=== PATIENT | female | born 1930 | race Caucasian/White ===

== ENCOUNTER 2017-03-24 13:21 | Inpatient (IN) | payer OTHER ==
[~2017-03-24] VITALS: Ht 165.1 cm; Wt 52.2 kg
[~2017-03-24 13:21] MED LIST: ACTONEL35 MG PO; ATIVAN0.5 MG PO; CAL-CITRATE200 MG PO; CALCITRIOL0.25 MCG PO; CIPROFLOXACIN500 MG PO; COZAAR25 MG PO; DIGOXIN0.125 MG PO; DILTIAZEM HCL180 MG PO; DULCOLAX5 MG PO; FUROSEMIDE40 MG PO; KEFLEX500 MG PO; LOSARTAN POTASS25 MG PO; LOSARTAN POTASS50 MG PO; MAGNESIUM OXID400 MG PO; METFORMIN HCL500 MG PO; METFORMIN HYDR500 M1 PO; METOPROLOL SUCC50 MG PO; MILK OF MA400 MG/5 M PO; MILK OF MAGNESI30 ML PO; MIRALAX17 GM PO; MULTIVITAMIN1 TAB PO; NOVOLOG100 U/ML SC; PREDNISONE 1 MG1 MG PO; PROBIOTIC FORMU1 CA1 PO; RIVA15T PO; ROBITUSSIN W/CO10 ML PO; ROXICODONE5 MG PO; SENOKOT S 50 MG1 TAB PO; SIMVASTATIN20 MG PO; Senokot S PO; TOPROL XL 50MG50 MG PO; TRADJENTA5 MG PO; TYLENOL TAB 32325 MG PO; VITAMIN B650 MG PO; VITAMIN E400 I1 PO; XARELTO15 MG PO; XARELTO20 MG PO
--- NOTE | 2017-03-24 13:32 | ED DYSPNEA/ASTHMA COMPLAINT ---
History of Present Illness General Chief Complaint: Upper Respiratory Sx/Fever Stated Complaint: BIBA ?URI Source: patient, family, EMS Exam Limitations: dementia Allergies Coded Allergies: warfarin (From COUMADIN) (Severe, "THROAT CLOSED" PER FAMILY 03/24/17) Penicillins (UNKNOWN 03/24/17) amoxicillin (UNKNOWN 03/24/17) risperidone (From RISPERDAL) (UNKNOWN 03/24/17) codeine (Intermediate, DIARRHEA 03/24/17) dabigatran etexilate (From PRADAXA) (Intermediate, BLEEDING 03/24/17) enoxaparin (From LOVENOX) (Intermediate, STOMACH PAIN 03/24/17) haloperidol (From HALDOL) (Intermediate, DIARRHEA, RAPID HR 03/24/17) rivaroxaban (From XARELTO) (Intermediate, BLEEDING 03/24/17) aspirin (BLEEDING PER FAMILY 03/24/17) Reconcile Medications Acetaminophen (Tylenol Tab 325 MG) 325 MG TABLET 2 TAB PO PRN PAIN/HEADACHES (Reported) Bisacodyl (Dulcolax) 5 MG TABLET.DR 1-2 TAB PO PRN CONSTIPATION (Reported) Calcitriol 0.25 MCG CAPSULE 1 CAP PO QAM SUPPLEMENT (Reported) Calcium Citrate (Kendrick-Citrate) 200 MG CAP 3 TAB PO BID SUPPLEMENT (Reported) Cephalexin (Keflex) 500 MG CAP 1 TAB PO Q8 CELLULITIS DILTIAZEM HCL (Diltiazem 24HR ER) 180 MG CAP.ER.24H 1 CAP PO QAM ATRIAL FIBRILLATION (Reported) Furosemide 40 MG TABLET 1 TAB PO QAM CHF (Reported) Inulin/Lactobacillus Sporoge (Probiotic Formula) 1 CAP CAP 1 TAB PO BID SUPPLEMENT Linagliptin (Tradjenta) 5 MG TABLET 1 TAB PO QAM DIABETES (Reported) Reason to Stop at ADM: ON ISS Lorazepam (Ativan) 0.5 MG TAB 1 TAB PO DAILY PAIN AND ANXIETY (Reported) THIS IS TO BE GIVEN PRIOR TO PT Losartan Potassium (Cozaar) 25 MG TAB 1 TAB PO QAM HTN (Reported) Magnesium Hydroxide (Milk Of Magnesia) 400 MG/5 ML KOJO 3 TBSP PO PRN CONSTIPATION (Reported) Magnesium Oxide 400 MG TABLET 1 TAB PO DAILY SUPPLEMENT (Reported) Metformin Hydrochloride (Metformin HCl) 500 MG TAB 1 TAB PO BID DIABETES ( Reported) Metoprolol Succ XL (Toprol Xl 50MG Tab) 50 MG TAB.ER.24H 1 TAB PO QAM HYPERTENSION (Reported) Multivitamin (Multiple Vitamins) 1 EACH TABLET 1 TAB PO DAILY SUPPLEMENT ( Reported) Prednisone 1 MG TABLET 2-3 TAB PO AD RA (Reported) Pyridoxine (Vitamin B6) 50 MG TAB 1 TAB PO DAILY SUPPLEMENT (Reported) Risedronate Sodium (Actonel) 35 MG TABLET 1 TAB PO QSUN BONE HEALTH, OSTEOPOROSIS (Reported) Rivaroxaban (Xarelto) 15 MG TAB 15 MG PO DAILY BLOOD THINNER SENNOSIDES/DOCUSATE SODIUM (Senokot-S Tablet) 50 MG/8.6 MG TAB 1-2 TAB PO PRN CONSTIPATION (Reported) Simvastatin (Zocor) 20 MG TAB 1 TAB PO QPM CHOLESTEROL (Reported) Triage Nurses Notes Reviewed? yes Onset: Gradual Duration: day(s): (3-4), constant, continues in ED, getting worse Timing: single episode today Severity: moderate, severe Activities at Onset: none Prior Episodes/Possible Cause: occasional episodes Associated Symptoms: cough, wheezing LMP (ages 10-50): post menopausal : No Patient currently breastfeeds: No HPI: 86-year-old female past medical history of dementia, atrial fibrillation, diabetes pulmonary embolism presents for evaluation of fatigue, lethargy, cough, congestion and shortness of breath. Family reports the patient has had a cough productive of yellow sputum over the past several days. She is also been more lethargic than usual and sleeping a lot. They deny any fever or chills. Her appetite has been decreased. They report that she had multiple episodes of vomiting on the way here and they concerned she may have aspirated. She has had aspiration pneumonia in the past. Patient has significant dementia and is not able to contribute to the history. Family feels like she is very lethargic compared to usual. Patient has an IVC filter in place and is anticoagulated on XARELTO. (Homero Hurtado) Vital Signs & Intake/Output Vital Signs & Intake/Output Vital Signs Date Time Temp Pulse Resp B/P B/P Pulse O2 O2 Flow FiO2 Mean Ox Delivery Rate 03/24 1600 66 20 138/60 99 Nasal 2.0L Cannula 03/24 1430 97 Nasal 3.0L Cannula 03/24 1400 99 Nasal 2.0L Cannula 03/24 1344 94 Nasal 2.5L Cannula 03/24 1344 97.7 92 20 153/72 88 Room Air (Adina BLAKELY,Aroldo Day) Past History Medical History Any Pertinent Medical History? 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 FH: lung cancer MOTHER FH: emphysema Hx Contributory? No (Homero Hurtado) Review of Systems Review of Systems Constitutional: Reports: no symptoms. EENTM: Reports: nasal congestion. Respiratory: Reports: see HPI, cough, short of breath, sputum production. Cardiovascular: Reports: no symptoms. GI: Reports: vomiting. Genitourinary: Reports: no symptoms. Musculoskeletal: Reports: no symptoms. Skin: Reports: no symptoms. Neurological/Psychological: Reports: confusion, dementia. Hematologic/Endocrine: Reports: no symptoms. Immunologic/Allergic: Reports: no symptoms. All Other Systems: Reviewed and Negative (Homero Hurtado) Physical Exam Physical Exam General Appearance: alert, awake, lethargic, thin Head: atraumatic, normal appearance Eyes: Bilateral: normal appearance, PERRL, EOMI. Ears, Nose, Throat: normal pharynx, hearing grossly normal, nasal congestion, moist mucus membranes Neck: normal inspection, supple, full range of motion Respiratory: chest non-tender, no respiratory distress, THERE ARE CRACKLES IN THE RIGHT LOWER LOBE. rHONCHI BILATERALLY NO RESPIRATORY DISTRESS OR CYANOSIS Cardiovascular: regular rate/rhythm, normal peripheral pulses Peripheral Pulses: 2+ radial (R), 2+ radial (L) Gastrointestinal: normal bowel sounds, soft, non-tender, no organomegaly Extremities: no edema, PATIENT HAS A LEFT [id number] AMPUTATION. SHE IS MOVING REMAINING EXTREMITIES EQUALLY Neurologic/Psych: no motor/sensory deficits, awake, alert, disoriented x 3 Skin: intact, normal color, warm/dry Core Measures ACS in differential dx? No CVA/TIA Diagnosis No Sepsis Present: No Sepsis Focused Exam Completed? Yes (Homero Hurtado) ED Sepsis Exam Date of Focused Sepsis Exam: 03/24/17 Time of Focused Sepsis Exam: 1500 Sepsis Cardiac Exam: ATRIAL FIBRILLATION 61BPM Sepsis Resp Exam: Rales (RLL) Sepsis Cap Refill Exam: <2 Sec Sepsis Peripheral Pulse Exam: Normal Sepsis Peripheral Pulse Location: Radial Sepsis Skin Color Exam: Pale Skin Temp/Moisture Exam: Warm/Dry (Homero Hurtado) Progress Differential Diagnosis: asthma, AMI, bronchitis, CHF, COPD, pulmonary embolism, pneumonia, unstable angina Diagnostic Imaging: Viewed by Me: Radiology Read. Discussed w/RAD: Radiology Read. CXR Impression: PATIENT: JUANITO LÓPEZ PRESENT AGE: 86 PATIENT ACCOUNT NO: [id number] : [birth year] LOCATION: ER ORDERING PHYSICIAN: Homero BENTON SERVICE DATE: 03/24/17 EXAM TYPE: RAD - XRY-PORTABLE CHEST XRAY EXAMINATION: XR PORTABLE CHEST CLINICAL INFORMATION: Cough, sputum. Shortness of breath. COMPARISON: Chest x-ray 05/23/2014, 05/22/2014 TECHNIQUE: Portable frontal view of the chest was obtained. 2:50 PM FINDINGS: There is dense consolidation at the left lung base with silhouetting left diaphragm. Probable consolidation/atelectasis as well as left pleural effusion. No pulmonary vascular congestion. The right lung is clear. Old healed left humeral fracture. Advanced degenerative joint disease of the right and left glenohumeral joint. Evidence of chronic rotator cuff tendon tear of both shoulders. Degenerative spondylosis of dorsal spine. IMPRESSION: Dense consolidation left lung base of left basilar infiltrate or atelectasis and probable left effusion. DICTATED BY: Juan Gregory MD DATE/TIME DICTATED:03/24/171523 CERTIFIED MARINE MECHANIC :LITZY DATE/TIME TRANSCRIBED:03/24/171523 CONFIDENTIAL, DO NOT COPY WITHOUT APPROPRIATE AUTHORIZATION. Initial ED EKG: ATRIAL FIBRILLATION, pvc, LEFT BUNDLE BRANCH BLOCK (Homero Hurtado) Plan of Care: Orders Procedure Date/time Status Regular Diet 03/25 B Active Misc Message 03/24 1744 Active ED Holding Orders 01/17 1745 Active Admit to inpatient 03/24 1745 Active Vital Signs 03/24 1745 Active Code Status 03/[address] CHEST WO IV CONTRAST 03/24 1720 Active ARTERIAL BLOOD GAS (GEN) 03/24 1610 Active AEROSOL (GEN) 03/24 1409 Complete RAPID VIRAL INFLUENZA A 03/24 1351 Complete BLOOD CULTURE 03/24 1351 Active URINALYSIS 03/24 1351 Active TROPONIN LEVEL 03/24 1351 Complete PARTIAL THROMBOPLASTIN TIME 03/24 1351 Complete PROTHROMBIN TIME 03/24 1351 Complete LACTIC ACID 03/24 1351 Complete D-DIMER 03/24 1351 Complete COMPREHENSIVE METABOLIC PANEL 03/24 1351 Complete CBC WITHOUT DIFFERENTIAL 03/24 1351 Complete B-TYPE NATRIURETIC PEP (BNP) 03/24 1351 Complete EKG 03/24 1343 Active Current Medications Sig/Julio Start time Last Medication Dose Stop Time Status Admin Azithromycin 500 MG ONCE ONE 03/24 1730 AC (Zithromax) 03/24 1829 Sodium Chloride 250 ML (Normal Saline 0.9%) Clindamycin 300 MG ONCE ONE 03/24 1615 CAN (Cleocin) 03/24 1616 Laboratory Tests 03/24/17 1700: pH 7.47 H, pCO2 39, pO2 73 L, HCO3 28, ABG O2 Sat (Measured) 95.0 L, P-50 ( Temp Corrected) N, Carboxyhemoglobin 0 L, O2 Concentration % 3L, Temperature 97.7, O2 Delivery Method NC, Phlebotomy Draw Site RIGHT BRACHIAL 03/24/17 1651: Lactic Acid Cancelled 03/24/17 1507: Anion Gap 13, Estimated GFR 35 L, BUN/Creatinine Ratio 24.3, Glucose 149 H, Lactic Acid 1.7, Calcium 13.6 H, Total Bilirubin 0.4, AST 21, ALT 36, Alkaline Phosphatase 55, Troponin I 0.02, Ezg-O-Npjqtgxsryf Pept 3840 H, Total Protein 6.7, Albumin 3.9, Globulin 2.8, Albumin/Globulin Ratio 1.4, PT 16.3 H, INR 1.56 H, APTT 29, D-Dimer High Sensitivty 576 H 03/24/17 1426: CBC w Diff NO MAN DIFF REQ, RBC 4.57, MCV 95.8, MCH 32.1 H, RDW 14.3, MPV 7.8, Gran % 80.6 H, Lymphocytes % 9.7 L, Monocytes % 7.8, Eosinophils % 1.4, Basophils % 0.5, Absolute Granulocytes 10.4 H, Absolute Lymphocytes 1.3, Absolute Monocytes 1.0 H, Absolute Eosinophils 0.2, Absolute Basophils 0.1, PUBS MCHC 33.5 Microbiology 03/24 1426 BLOOD: Blood Culture - RECD 03/24 1400 NASOPHARYN: Influenza Virus A & B Rapid Smear - COMP 03/24 1351 BLOOD: Blood Culture - ORD Patient seen and evaluated. On arrival to the emergency department she was hypoxic on room air to the high 80/90%. She was placed on 2 L nasal cannula and her oxygen saturation has maintained in the 90s. She has crackles in the right lower lobe along with rhonchi bilaterally. Patient vomited multiple times on the way here there is a concern for aspiration pneumonia she has had this in the past. Patient's blood gas does not show any evidence of hypercarbiA. SHe is not acidotic. Patient does have a dense consolidation on the right lung suspicious for pneumonia. She'll be covered with Clinda as well as ceftriaxone and Zithromax. Blood cultures sent. Patient does have a history of PE with a mildly elevated d-dimer. She has a IVC filter in place and is on anticoagulation. Suspect of the hypoxia is related to pneumonia and not a PE. Patient is negative for the flu. Lactic acid is negative. BNP is slightly elevated but there is no evidence of pulmonary edema patient will be admitted to Gen. medicine for IV antibiotics and IV fluids follow-up cultures. Case discussed with Dr. Holden he agrees. (José BENTON,Homero) (Adina BLAKELY,Aroldo Day) Departure Departure Disposition: STILL A PATIENT Condition: Stable Clinical Impression Primary Impression: Pneumonia Qualifiers: Pneumonia type: due to unspecified organism Laterality: right Lung location: lower lobe of lung Qualified Code: J18.1 - Lobar pneumonia, unspecified organism Secondary Impressions: Hypoxia Referrals: Hetal Goldberg MD (PCP/Family) Departure Forms: Customer Survey General Discharge Information Admission Note Spoke With: Mary Madrigal MD Documentation of Exam: Documentation of any treatments & extenuating circumstances including Concerns Regarding Discharge (functional status, medication knowledge or non-compliance, living conditions, etc.) that warrant an admission rather than observation: [IV antibiotics, oxygen supplementation, IV fluids, serial labs, serial chest x-rays , physical therapy, pulmonology consult, monitoring of vital signs] (Homero Hurtado) PA/BLUNGER Co-Sign Statement Statement: ED Attending supervision documentation- [X] I saw and evaluated the patient. I have also reviewed all the pertinent lab results and diagnostic results. I agree with the findings and the plan of care as documented in the PA's/BLUNGER's documentation. Patient presents for evaluation of a fever and generalized weakness/lethargy. Physical examination reveals somewhat lethargic woman in no acute respiratory distress. [] I have reviewed the ED Record and agree with the PA's/BLUNGER's documentation. [] Additions or exceptions (if any) to the PAs/BLUNGER's note and plan are summarized below: [] (Adina BLAKELY,Aroldo Day) Critical Care Note Critical Care Note Critical Care Time: non-applicable (Homero Hurtado)
[2017-03-24 14:38] LABS: ABSOLUTE BASOPHIL COUNT 0.1 /CUMM (0.0-0.2); ABSOLUTE EOSINOPHIL COUNT 0.2 /CUMM (0.0-0.7); ABSOLUTE GRANULOCYTE CT 10.4 /CUMM (1.4-6.5); ABSOLUTE LYMPH COUNT 1.3 /CUMM (1.2-3.4); BASOPHIL % 0.5 % (0.0-2.0); EOSINOPHIL % 1.4 % (0-5); GRANULOCYTE % 80.6 % (42.2-75.2); HEMATOCRIT 43.8 % (37-47); MEAN CORPUSCULAR HGB 32.1 PG (27.0-31.0); MEAN CORPUSCULAR HGB CONC 33.5 G/DL (33.0-37.0); MEAN CORPUSCULAR VOLUME 95.8 FL (81.0-99.0); MEAN PLATELET VOLUME 7.8 FL (7.4-10.4); PLATELET COUNT 288 /CUMM (130-400); RBC DISTRIBUTION WIDTH 14.3 % (11.5-14.5); RED BLOOD CELL CT 4.57 /CUMM (4.20-5.40); WHITE BLOOD CELL COUNT 12.9 /CUMM (4.8-10.8)
[2017-03-24 15:23] LABS: PT 16.3 SEC (9.4-12.5); PTT 29 SEC (25-37)
--- NOTE | 2017-03-24 15:30 | RADIOLOGY REPORT ---
EXAMINATION: XR PORTABLE CHEST CLINICAL INFORMATION: Cough, sputum. Shortness of breath. COMPARISON: Chest x-ray 05/23/2014, 05/22/2014 TECHNIQUE: Portable frontal view of the chest was obtained. 2:50 PM FINDINGS: There is dense consolidation at the left lung base with silhouetting left diaphragm. Probable consolidation/atelectasis as well as left pleural effusion. No pulmonary vascular congestion. The right lung is clear. Old healed left humeral fracture. Advanced degenerative joint disease of the right and left glenohumeral joint. Evidence of chronic rotator cuff tendon tear of both shoulders. Degenerative spondylosis of dorsal spine. IMPRESSION: Dense consolidation left lung base of left basilar infiltrate or atelectasis and probable left effusion.
--- NOTE | 2017-03-24 17:37 | Admission Certification ---
Admission Certification Certification Statement - As attending physician, I certify that at the time of - admission, based on clinical presentation, severity of - symptoms, need for further diagnostic testing and - therapeutic interventions, and risk of adverse outcomes - without in-hospital treatment, in my clinical assessment, - this patient requires an acute hospital stay for a minimum - of two nights or longer. I have also considered psychsocial - factors such as support system, advanced age, financial - issues, cognitive issues, and failed out-patient treatments, - past re-admission history, safety of patient, and lack of - compliance as applicable. Specific rationale supporting this admission is: Pneumonia and tristian in elderly pt with dementia
--- NOTE | 2017-03-24 17:46 | PN- Att Addend ---
Attending Addendum Attending Brief Note This is a fairly complex 86-year-old female with multiple medical problems. She has dementia, atrial fibrillation on Xarelto, chronic diastolic heart failure, peripheral arterial disease, rheumatoid arthritis on chronic prednisone low dose and diabetes among her problems. Her family takes care of her at home and they brought her in basically for a cough with sputum and increasing agitation, much more than her usual self. They say she's become combative, banging into things and has been difficult to care for her. In the ED she was found to be afebrile and normotensive. She was fairly agitated and combative and even my exam was extremely limited. She was found to have a white count of 12.9 with a left shift, ROBINSON with a BUN of 34 and a creatinine 1.4 and a chest x-ray which showed dense left basilar consolidation. In addition her sats are 88-92% but as per the family who check her sats as an outpatient, that's close to her baseline. A blood gas was done which revealed a pH of 7.47, PCO2 of 39 and a PO2 of 73 on 3 L. She also has a Calcium of 13.6 but looking back in January 21 her Ca was 12.2. At this point I think we are dealing with a community-acquired pneumonia and after blood cultures are obtained I think we should cover her with ceftriaxone and azithromycin. Flu swab was neagtive. The ED give her clindamycin with the worry of aspiration. Given the dense consolidation on the chest x-ray we'll get a noncontrast chest CT to better delineate. Will hydrate her and obviously hold her Lasix and metformin for now. But will have to gently hydrate her because of the history of chronic diastolic heart failure. She is chronically on Xarelto and has a fairly high bleeding/fall risk so we'll continue that while watching her crit and bleeding indicators closely. Will follow-up on the Ca. I worry that with the agitation and combative behavior we may need a sitter for her to stay safe.
--- NOTE | 2017-03-24 18:20 | History & Physical ---
Florentin BLAKELY,[facility] 03/24/17 1820: General Information and HPI MD Statement: I have seen and personally examined JUANITO LÓPEZ and documented this H&P. The patient is a 86 year old F who presented with a patient stated chief complaint of productive cough, weakness, increased confusion Source of Information: family, old records Exam Limitations: unable to give history, clinical condition, confusion, dementia History of Present Illness: A few years old female with a PMH of dementia, A. fib on Xeralto, peripheral artery disease, chronic diastolic heart failure, rheumatoid arthritis, diabetes mellitus who presents to [facility] with her family very confused and not able to provide history, most of the history was provided by her daughter which is her caregiver. Patient started having productive cough which has been increasingly worse over the past few days, it was associated with increasing weakness and confusion. The patient was noticed to be very combative this morning and was not able to swallow her morning medications. She also complained of left shoulder pain, chest pain and back pain. Of note the patient was exposed to sick contacts (her visiting aid which had productive cough) at baseline the patient has dementia however she was noticed to have increasing confusion Her daughter denies any history of choking while eating neither injury to her left shoulder. No recent travel. Reports that the patient has been compliant with her home meds with no recent changes. Patient follow Dr. Palma who was consulted to see her during this admission Allergies/Medications Allergies: Coded Allergies: warfarin (From COUMADIN) (Severe, "THROAT CLOSED" PER FAMILY 03/24/17) Penicillins (UNKNOWN 03/24/17) amoxicillin (UNKNOWN 03/24/17) risperidone (From RISPERDAL) (UNKNOWN 03/24/17) codeine (Intermediate, DIARRHEA 03/24/17) dabigatran etexilate (From PRADAXA) (Intermediate, BLEEDING 03/24/17) enoxaparin (From LOVENOX) (Intermediate, STOMACH PAIN 03/24/17) haloperidol (From HALDOL) (Intermediate, DIARRHEA, RAPID HR 03/24/17) rivaroxaban (From XARELTO) (Intermediate, BLEEDING 03/24/17) aspirin (BLEEDING PER FAMILY 03/24/17) Home Med list Calcitriol 0.25 MCG CAPSULE 1 CAP PO DAILY SUPPLEMENT (Reported) Diltiazem HCl (Diltiazem 24HR ER) 180 MG CAP.ER.24H 1 CAP PO DAILY HEART/BP ( Reported) Furosemide (Unknown Strength) TABLET (Unknown Dose) PO DAILY DIURETIC ( Reported) Linagliptin (Tradjenta) 5 MG TABLET 1 TAB PO DAILY DM (Reported) Lorazepam 0.5 MG TABLET 1 TAB PO AD PRN ANXIETY (Reported) Losartan Potassium 25 MG TABLET 1 TAB PO DAILY HEART/BP (Reported) Magnesium Hydroxide (Milk Of Magnesia) 400 MG/5 ML ORAL.SUSP 15 ML PO PRN GI (Reported) Magnesium Oxide (Magnesium) 400 MG CAPSULE 1 CAP PO EOD SUPPLEMENT (Reported) Metformin HCl 500 MG TABLET 1 TAB PO BID DM (Reported) Metoprolol Succinate 50 MG TAB.ER.24H 1 TAB PO QAM HEART/BP (Reported) Multivitamin (Daily Value) 1 EACH TABLET 1 TAB PO DAILY SUPPLEMENT (Reported) Prednisone 1 MG TABLET 2 TAB PO Wednesday STEROID (Reported) Prednisone 1 MG TABLET 3 TAB PO STEROID (Reported) Pyridoxine HCl (Vitamin B-6) 50 MG TABLET 1 TAB PO DAILY SUPPLEMENT (Reported ) Risedronate Sodium (Actonel) 35 MG TABLET 1 TAB PO QSUN OSTEOPOROSIS ( Reported) Rivaroxaban (Xarelto) 15 MG TABLET 1 TAB PO DAILY BLOOD THINNER (Reported) Sennosides/Docusate Sodium (Senna S Tablet) 8.6 MG-50 MG TABLET 1 TAB PO EOD GI (Reported) Simvastatin (Simvastatin*) 20 MG TABLET 1 TAB PO QPM CHOLESTEROL (Reported) Past History Travel History Traveled to [place] past 21 day No Medical History Neurological: dementia EENT: EMMONAK Cardiovascular: AFIB, CHF, hypertension, hyperlipidemia, PVD, DVT PE Respiratory: pulmonary embolism, pneumonia Gastrointestinal: NONE Hepatic: NONE Renal: NONE Musculoskeletal: rheumatoid arthritis, RT AKA Psychiatric: NONE Endocrine: diabetes, hypothyroidism Blood Disorders: DVT, IVC FILTER Cancer(s): NONE TRUCK LOADER/Reproductive: NONE Other Medical Hx: 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 FH: lung cancer MOTHER FH: emphysema Psychosocial History Services at Home: Nursing Functional Ability ADLs Needs Assist: dressing, eating, toileting, bathing. Ambulation: non-ambulatory IADLs Needs Assist: shopping, housework, finances, food prep, telephone, transportation, medication admin. Review of Systems Review of Systems Constitutional: Reports: fever, malaise, weakness. Cardiovascular: Reports: chest pain. Respiratory: Reports: cough, sputum production. Denies: hemoptysis, orthopnea, stridor. GI: Denies: no symptoms. Genitourinary: Denies: no symptoms. Musculoskeletal: Denies: no symptoms. Skin: Denies: no symptoms. Exam & Diagnostic Data Last 24 Hrs of Vital Signs/I&O Vital Signs Date Time Temp Pulse Resp B/P B/P Pulse O2 O2 Flow FiO2 Mean Ox Delivery Rate 03/24 1948 98.9 97 20 107/61 97 Nasal 2.0L Cannula 03/24 1600 66 20 138/60 99 Nasal 2.0L Cannula 03/24 1430 97 Nasal 3.0L Cannula 03/24 1400 99 Nasal 2.0L Cannula 03/24 1344 94 Nasal 2.5L Cannula 03/24 1344 97.7 92 20 153/72 88 Room Air Intake & Output 03/24 1600 03/24 0800 03/24 0000 Intake Total Output Total Balance Patient 115 lb Weight Weight Reported by Patient Measurement Method Physical Exam General Appearance very confused and lethargic HEENT Atraumatic, PERRLA, EOMI, Mucous Membr. moist/pink Cardiovascular Normal S1, Normal S2, No Murmurs Lungs wide spread rales, decreased air entery jessica on the left side, Abdomen Normal Bowel Sounds, Soft Extremities No Clubbing, No Cyanosis, rheumatod arthritis with hand joint defomity Assessment/Plan Assessment: A few years old female with a PMH of dementia, A. fib on Xeralto, peripheral artery disease, chronic diastolic heart failure, rheumatoid arthritis, diabetes mellitus who presents to [facility] with her family very confused and not able to provide history, most of the history was provided by her daughter which is her caregiver. Patient started having productive cough which has been increasingly worse over the past few days, it was associated with increasing weakness and confusion. Most likely her confusion is due to infection, Labs on admission were significant for leukocytosis with WBC 12.9 with left shift, normal H&H, normal platelet count of 288, ABG showed pH is 7.47, PCO2 39, PO2 73, BEP: Sodium 142, potassium 4.4, BUN 34, creatinine 1.4, glucose 149, PT 1.56 Urinalysis only showed few bacteria Chest x-ray: Dense consolidation left lung base of left basilar infiltrate or atelectasis and probable left effusion. Chest CT: Loss left hemithorax with atelectasis and consolidation at left lower lobe. Moderate to large volume left pleural effusion which appears partially loculated. Problem list: CAP with left pleural effusion A. fib on as Xeralto Chronic diastolic heart failure ROBINSON: Most likely prerenal Diabetes mellitus Dementia Plan: Admit to telemetry floor cardiology consult was placed we'll follow up on the recommendation Obtain pulmonary consult IV ceftriaxone and azithromycin TRC and NEBS Echocardiography Close monitoring of vital signs Close monitoring of I's and O's Follow-up on CBC and BEP Most likely the patient will needed IR guided thoracocentesis Hold her Lasix and metformin for now Avoid delirium triggers likely dehydration and narcotics, continuous reorientation, Safety monitor Formal swallow eval to rule out aspiration possibility Patient is full code DVT prophylaxis Xeralto NPO As Ranked By This Provider Problem List: 1. Rheumatoid arthritis 2. CAD (coronary artery disease) 3. CAP (community acquired pneumonia) 4. Pleural effusion Core Measures/Misc (11/22) Acute Coronary Syndrome ACS Diagnosis: No Congestive Heart Failure Congestive Heart Failure Diagnosis No Cerebrovascular Accident CVA/TIA Diagnosis: No VTE (View Protocol) VTE Risk Factors Age>40 No Mechanical VTE Prophylaxis d/t N/A MechProphylax Ordered No VTE Pharm Prophylaxis d/t NA PharmProphylax ordered Sepsis (View protocol) Sepsis Present: No Byron Guardado 03/24/172054: Resident Review Statement Resident Statement: examined this patient, discussed with technical internship, agreed with technical internship, reviewed EMR data (avail), discussed with nursing, discussed with case mgmt, reviewed images, amended to note Other Findings: This is 86-year-old female with a history of advanced Alzheimer dementia, A. fib on Xeralto, peripheral artery disease, chronic diastolic heart failure, rheumatoid arthritis, diabetes mellitus who presents to [facility] with her family very confused and not able to provide history, most of the history was provided by her daughter which is her caregiver. Patient started having productive cough which has been increasingly worse over the past few days, it was associated with increasing weakness and confusion. The patient was noticed to be very combative this morning and was not able to swallow her morning medications. Hx was taken from the patient's family. .p.t non cooperative during physical exam limited exam: irregular irregular, normal S1,S2 decrease air entry in left lung with crakles. Right above knee amputation. Patient received her anticoagulation today. Physical examination, lab and imaging as above. Assessment: -Left pleural effusion: Most likely due to her history of congestive heart failure and pulmonary hypertension. Also the patient family stated her by mouth Lasix was decreased for 2 weeks and she developed some leg swelling and after that her Lasix increased to her regular dose of 40 by mouth daily and the neck swelling improved. Patient will need drainage and evaluation by lighting engineering technician and freight broker agent at she had previous drainage in the past. -Acute kidney injury/CHF: That this most likely due to decreased renal clearance and the fluid overload status with decompensated CHF. Patient did not seems to be dehydrated and would recommend IV diuresis giving her pro B peptide level. Also, the need of recheck her basic panel electrolytes for further evaluation also she would need an echocardiogram for assessment as the most recent one was done 2011. Plan: -Admit patient to telemetry floor -Vitals every shift, strict CULLEN's, aspiration precaution -We'll start the patient IV ceftriaxone and azithromycin -Follow-up blood culture, sputum culture, Legionella and strep urine antigen -We'll arrange for IR drainage tomorrow hold Xarelto in a.m. -C nebs as needed -Cardiology consultation -Obtain echocardiogram, 1 set of troponin and EKG -Pulmonary consultation -Nothing by mouth, pending swallow evaluation -Accu-Chek, nothing by mouth insulin sliding scale -We will give the patient 500 mL saline at 50 mL per hour as recommended by attending -We'll hold off her by mouth Lasix as recommended by attending -We'll hold the patient Xarelto, GASTON inhibitor -Recheck the patient CBC and basic electrolyte in a.m. -Pain pathway -DVT prophylaxis on Xarelto -Full code Mary Madrigal MD 03/25/17 0754: Attending Review Statement Attending Statement Attending Statement: examined this patient, discuss w/resident/PA/TROLLEY CLEANER, agreed w/resident/PA/TROLLEY CLEANER, discussed with family, reviewed EMR data (avail), discussed with nursing, reviewed images Attending Assessment/Plan: See medical brief addendum note dated 03/24/17
--- NOTE | 2017-03-24 18:20 | CT SCAN REPORT ---
EXAMINATION: CT CHEST WITHOUT CONTRAST CLINICAL INFORMATION: Cough. Hypoxia. COMPARISON: Chest x-ray 03/24/2017, 05/23/2014. CT chest 05/22/2014 TECHNIQUE: Multidetector volumetric CT imaging of the chest was done. Axial MIP volume rendering provided. Sagittal and coronal reformatted images were obtained. DLP: 235.5 mGy-cm FINDINGS: LUNGS: Overall volume loss of left hemithorax compared to right. There is atelectasis/consolidation at the left lower lobe. The bronchi in the consolidated segment of the left lower lobe are opacified. Minimal scarring at right lung base. No infiltrate or right lung. MEDIASTINUM: No mediastinal mass or significant lymphadenopathy. There is vascular calcification of aorta and coronary arteries. Cardiomegaly. No pericardial effusion. PLEURA: Moderate to large volume left pleural effusion could be partially loculated. AXILLA: No lymphadenopathy. UPPER ABDOMEN: No focal lesions are visualized portions of liver, spleen, pancreas kidneys or adrenal gland. There is atherosclerotic vascular wall calcification of the aorta and splenic arteries. OSSEOUS STRUCTURES: Degenerative spondylosis of spine with multilevel disc height narrowing and endplate spur of the vertebrae. IMPRESSION: Loss left hemithorax with atelectasis and consolidation at left lower lobe. Moderate to large volume left pleural effusion which appears partially loculated.
[2017-03-24] MEDS ORDERED: METFORMIN HCL500 M3 PO (18:45)
[2017-03-24] MEDS ORDERED: TRADJENTA5 M1 PO (18:45)
[2017-03-24] MEDS ORDERED: DILTIAZEM 24HR180 MG PO (18:49)
[2017-03-24] MEDS ORDERED: XARELTO15 M2 PO (18:49)
[2017-03-24] MEDS ORDERED: FUROSEMIDE40 M1 PO (18:50)
[2017-03-24] MEDS ORDERED: LOSARTAN POTASS25 M1 PO (18:50)
[2017-03-24] MEDS ORDERED: SIMVASTATIN20 M2 PO (18:51)
[2017-03-24] MEDS ORDERED: PREDNISONE1 MG PO ×2 (18:51→18:52)
[2017-03-24] MEDS ORDERED: CALCITRIOL0.25 MC1 PO (18:51)
[2017-03-24] MEDS ORDERED: METOPROLOL SUCC50 M2 PO (18:53)
[2017-03-24] MEDS ORDERED: ACTONEL35 M1 PO (18:53)
[2017-03-24] MEDS ORDERED: LORAZEPAM0.5 M1 PO (18:54)
[2017-03-24] MEDS ORDERED: DAILY VALUE1 EACH PO (19:08)
[2017-03-24] MEDS ORDERED: MAGNESIUM400 M1 PO (19:09)
[2017-03-24] MEDS ORDERED: VITAMIN B-650 M2 PO (19:09)
[2017-03-24] MEDS ORDERED: SENNA S TABLET1 EACH PO (19:13)
[2017-03-24] MEDS ORDERED: MILK OF MA400 MG/52 PO (19:15)
[2017-03-24 22:30] VITALS: BP 94/62
--- NOTE | 2017-03-25 08:03 | PN- Housestaff ---
See Addendum Subjective Follow-up For: locaulated effusion Tele-Events Since Last Visit: afib 80-100 Subjective: No overnight events. Poor historian, complaining of not breathing well and pain. Review of Systems Constitutional: Reports: no symptoms. EENTM: Reports: no symptoms. Cardiovascular: Reports: no symptoms. Respiratory: Reports: see HPI. Gastrointestinal: Reports: no symptoms. Genitourinary: Reports: no symptoms. Musculoskeletal: Reports: see HPI. Skin: Reports: no symptoms. Neurological/Psychological: Reports: no symptoms. Hematologic/Endocrine: Reports: no symptoms. Immunologic/Allergic: Reports: no symptoms. Objective Last 24 Hrs of Vital Signs/I&O Vital Signs Date Time Temp Pulse Resp B/P B/P Pulse O2 O2 Flow FiO2 Mean Ox Delivery Rate 03/25 627 98.4 103 18 94 Nasal Cannula 03/24 2249 98.5 90 18 95 Nasal 2.0L Cannula 03/24 2230 Nasal 2.0L Cannula 03/24 2230 94/62 03/24 1948 98.9 97 20 107/61 97 Nasal 2.0L Cannula 03/24 1600 66 20 138/60 99 Nasal 2.0L Cannula 03/24 1430 97 Nasal 3.0L Cannula 03/24 1400 99 Nasal 2.0L Cannula 03/24 1344 94 Nasal 2.5L Cannula 03/24 1344 97.7 92 20 153/72 88 Room Air Intake & Output 03/25 0800 03/25 0000 03/24 1600 Intake Total 300 1000 Output Total 125 Balance 175 1000 Intake, IV 300 1000 Output, Urine 125 Patient 115 lb Weight Weight Reported by Patient Measurement Method Physical Exam General Appearance: Alert, Oriented X3, Cooperative, No Acute Distress Cardiovascular: Regular Rate, Normal S1, Normal S2 Lungs: hard to examine, patient refuses to turn Abdomen: Normal Bowel Sounds, Soft, No Tenderness Extremities: No Edema, right leg amupuated above knee. Current Medications: Current Medications Sig/Julio Start time Last Medication Dose Route Stop Time Status Admin Acetaminophen 650 MG Q6P PRN 03/24 1944 AC PO Acetaminophen 1,000 MG Q6P PRN 03/24 1944 AC IV Albuterol Sulfate 3 ML ONCE ONE 03/24 1400 DC 03/24 INH 03/24 1401 1408 Atorvastatin Calcium 10 MG 1700 03/25 1700 AC PO Azithromycin 500 MG DAILY 03/25 1000 AC Sodium Chloride 250 ML IV Azithromycin 500 MG ONCE ONE 03/24 1730 DC 03/24 Sodium Chloride 250 ML IV 03/24 1829 1856 Calcitriol 0.25 MCG DAILY 03/25 1000 AC PO Ceftriaxone Sodium 1,000 MG DAILY 03/25 1000 AC IV Ceftriaxone Sodium 0 .STK-MED ONE 03/24 1842 DC .ROUTE Ceftriaxone Sodium 1,000 MG ONCE ONE 03/24 1730 DC 03/24 IV 03/24 1731 1947 Clindamycin 600 MG ONCE ONE 03/24 1630 DC 03/24 Dextrose/Water 50 ML IV 03/24 1659 1739 Clindamycin 300 MG ONCE ONE 03/24 1615 CAN IV 03/24 1616 Diltiazem HCl 180 MG DAILY 03/25 1000 AC PO Insulin Human Regular 0 Q6 03/24 1940 AC 03/25 SC 0644 Ipratropium [place] 2.5 ML ONCE ONE 03/24 1400 DC 03/24 INH 03/24 1401 1407 Lorazepam 0.5 MG DAILY NEEDED PRN 03/24 1945 AC PO 03/31 1944 Metoprolol Succinate 50 MG QAM 03/25 1000 AC PO Rivaroxaban 15 MG DAILY 03/25 1000 CAN PO Sodium Chloride 500 ML BOLUS ONE 03/24 1945 DC 03/25 IV 03/25 0544 0005 Sodium Chloride 1,000 ML BOLUS ONE 03/24 1545 DC 03/24 IV 03/24 1644 1600 Last 24 Hrs of Lab/Raghu Results Last 24 Hrs of Labs/Mics: Laboratory Tests 03/25/17 0614: CBC w Diff Pending, WBC Pending, RBC Pending, Hgb Pending, Hct Pending, MCV Pending, MCH Pending, RDW Pending, Plt Count Pending, MPV Pending, PUBS MCHC Pending 03/24/17 2215: Troponin I 0.02 03/24/171941: Urine Color YEL, Urine Clarity CLEAR, Urine pH 6.5, Ur Specific [place] 1.015, Urine Protein NEG, Urine Ketones NEG, Urine Nitrite NEG, Urine Bilirubin NEG, Urine Urobilinogen 0.2, Ur Leukocyte Esterase TRACE H, Ur Microscopic SEDIMENT EXAMINED, Urine RBC 1-3, Urine WBC 1-3 H, Ur Epithelial Cells RARE, Urine Bacteria FEW H, Hyaline Casts 1-3 H, Granular Casts RARE H, Urine Mucus RARE, Urine Hemoglobin TRACE-INTACT, Urine Glucose NEG 03/24/17 1700: pH 7.47 H, pCO2 39, pO2 73 L, HCO3 28, ABG O2 Sat (Measured) 95.0 L, P-50 ( Temp Corrected) N, Carboxyhemoglobin 0 L, O2 Concentration % 3L, Temperature 97.7, O2 Delivery Method NC, Phlebotomy Draw Site RIGHT BRACHIAL 03/24/17 1651: Lactic Acid Cancelled 03/24/17 1507: Anion Gap 13, Estimated GFR 35 L, BUN/Creatinine Ratio 24.3, Glucose 149 H, Lactic Acid 1.7, Calcium 13.6 H, Total Bilirubin 0.4, AST 21, ALT 36, Alkaline Phosphatase 55, Troponin I 0.02, Vdx-J-Hniguoxwmfk Pept 3840 H, Total Protein 6.7, Albumin 3.9, Globulin 2.8, Albumin/Globulin Ratio 1.4, PT 16.3 H, INR 1.56 H, APTT 29, D-Dimer High Sensitivty 576 H 03/24/17 1426: CBC w Diff NO MAN DIFF REQ, RBC 4.57, MCV 95.8, MCH 32.1 H, RDW 14.3, MPV 7.8, Gran % 80.6 H, Lymphocytes % 9.7 L, Monocytes % 7.8, Eosinophils % 1.4, Basophils % 0.5, Absolute Granulocytes 10.4 H, Absolute Lymphocytes 1.3, Absolute Monocytes 1.0 H, Absolute Eosinophils 0.2, Absolute Basophils 0.1, PUBS MCHC 33.5 Microbiology 03/25 0050 BLOOD: Blood Culture - RECD 03/24 2109 URINE ROUT: Legionella Antigen - COLB 03/24 2109 URINE ROUT: Streptococcus pneumoniae Antigen (M - COLB 03/24 2109 LOWER RESP: Respiratory Culture - COLB 03/24 2109 LOWER RESP: Gram Stain - COLB 03/24 194 URINE ROUT: Urine Culture - RECD 03/24 1426 BLOOD: Blood Culture - RECD 03/24 1400 NASOPHARYN: Influenza Virus A & B Rapid Smear - COMP Assessment/Plan Assessment: 86 y old female with a PMH of dementia, A. fib on Xeralto, peripheral artery disease, chronic diastolic heart failure, rheumatoid arthritis, diabetes mellitus who presents to [facility] with her family very confused and not able to provide history. Problem List: 1. Partially loculated pleural effusion 2. Community-acquired pneumonia 3. Acute kidney injury #Partially loculated pleural effusion: The patient is coming in with productive cough, confusion, and shortness of breath. She is found to have a moderate to large partially loculated pleural effusion on CT scan. Fluids been negative. She has been afebrile. We will talk to cardiology and pulmonology about whether we should be diuresing versus draining the pleural effusion. -Appreciate pulmonology recommendations -Appreciate cardiology recommendations -Continue ceftriaxone and azithromycin -Holding rivaroxaban -TTE -Follow cultures -IR drainage #Acute kidney injury: Patient presented with creatinine 1.4. Baseline is 1.0. Likely prerenal azotemia in the setting of infection. -Avoid nephrotoxic medications -Holding GASTON inhibitor and furosemide #Chronic medical problems: DVT prophylaxis with Alps Heart healthy diet, puree, nectar thick Full code Problem List: 1. Pneumonia Pain Ratin Pain Location: none Pain Goal: Remain pain free Pain Plan: see a/p Tomorrow's Labs & Rationales: cbc, bep
[2017-03-25 08:21] LABS: ABSOLUTE BASOPHIL COUNT 0 /CUMM (0.0-0.2); ABSOLUTE EOSINOPHIL COUNT 0 /CUMM (0.0-0.7); ABSOLUTE GRANULOCYTE CT 10.5 /CUMM (1.4-6.5); ABSOLUTE LYMPH COUNT 1.4 /CUMM (1.2-3.4); ABSOLUTE MONOCYTE COUNT 1.2 /CUMM (0.10-0.60); BASOPHIL % 0.2 % (0.0-2.0); EOSINOPHIL % 0.2 % (0-5); GRANULOCYTE % 79.8 % (42.2-75.2); HEMATOCRIT 39.6 % (37-47); MEAN CORPUSCULAR HGB 32.3 PG (27.0-31.0); MEAN CORPUSCULAR HGB CONC 33.2 G/DL (33.0-37.0); MEAN CORPUSCULAR VOLUME 97.2 FL (81.0-99.0); MEAN PLATELET VOLUME 8.4 FL (7.4-10.4); PLATELET COUNT 237 /CUMM (130-400); RBC DISTRIBUTION WIDTH 14.5 % (11.5-14.5); RED BLOOD CELL CT 4.07 /CUMM (4.20-5.40); WHITE BLOOD CELL COUNT 13.1 /CUMM (4.8-10.8)
--- NOTE | 2017-03-25 09:39 | Cons- Cardiology ---
General Information and HPI Consulting Request Date of Consult: 03/25/17 Requested By: Vitor Botello MD Reason for Consult: CHF Source of Information: old records Exam Limitations: patient's age, dementia History of Present Illness: A few years old female with a PMH of dementia, A. fib on Xeralto, peripheral artery disease, chronic diastolic heart failure, rheumatoid arthritis, diabetes mellitus who presents to [facility] with her family very confused and not able to provide history, most of the history was provided by her daughter which is her caregiver. Patient started having productive cough which has been increasingly worse over the past few days, it was associated with increasing weakness and confusion. The patient was noticed to be very combative this morning and was not able to swallow her morning medications. She also complained of left shoulder pain, chest pain and back pain. Of note the patient was exposed to sick contacts (her visiting aid which had productive cough) at baseline the patient has dementia however she was noticed to have increasing confusion Her daughter denies any history of choking while eating neither injury to her left shoulder. No recent travel. Reports that the patient has been compliant with her home meds with no recent changes. Allergies/Medications Allergies: Coded Allergies: warfarin (From COUMADIN) (Severe, "THROAT CLOSED" PER FAMILY 03/24/17) Penicillins (UNKNOWN 03/24/17) amoxicillin (UNKNOWN 03/24/17) risperidone (From RISPERDAL) (UNKNOWN 03/24/17) codeine (Intermediate, DIARRHEA 03/24/17) dabigatran etexilate (From PRADAXA) (Intermediate, BLEEDING 03/24/17) enoxaparin (From LOVENOX) (Intermediate, STOMACH PAIN 03/24/17) haloperidol (From HALDOL) (Intermediate, DIARRHEA, RAPID HR 03/24/17) rivaroxaban (From XARELTO) (Intermediate, BLEEDING 03/24/17) aspirin (BLEEDING PER FAMILY 03/24/17) Home Med List: Calcitriol 0.25 MCG CAPSULE 1 CAP PO DAILY SUPPLEMENT (Reported) Diltiazem HCl (Diltiazem 24HR ER) 180 MG CAP.ER.24H 1 CAP PO DAILY HEART/BP ( Reported) Furosemide (Unknown Strength) TABLET (Unknown Dose) PO DAILY DIURETIC ( Reported) Linagliptin (Tradjenta) 5 MG TABLET 1 TAB PO DAILY DM (Reported) Lorazepam 0.5 MG TABLET 1 TAB PO AD PRN ANXIETY (Reported) Losartan Potassium 25 MG TABLET 1 TAB PO DAILY HEART/BP (Reported) Magnesium Hydroxide (Milk Of Magnesia) 400 MG/5 ML ORAL.SUSP 15 ML PO PRN GI (Reported) Magnesium Oxide (Magnesium) 400 MG CAPSULE 1 CAP PO EOD SUPPLEMENT (Reported) Metformin HCl 500 MG TABLET 1 TAB PO BID DM (Reported) Metoprolol Succinate 50 MG TAB.ER.24H 1 TAB PO QAM HEART/BP (Reported) Multivitamin (Daily Value) 1 EACH TABLET 1 TAB PO DAILY SUPPLEMENT (Reported) Prednisone 1 MG TABLET 2 TAB PO Wednesday STEROID (Reported) Prednisone 1 MG TABLET 3 TAB PO STEROID (Reported) Pyridoxine HCl (Vitamin B-6) 50 MG TABLET 1 TAB PO DAILY SUPPLEMENT (Reported ) Risedronate Sodium (Actonel) 35 MG TABLET 1 TAB PO QSUN OSTEOPOROSIS ( Reported) Rivaroxaban (Xarelto) 15 MG TABLET 1 TAB PO DAILY BLOOD THINNER (Reported) Sennosides/Docusate Sodium (Senna S Tablet) 8.6 MG-50 MG TABLET 1 TAB PO EOD GI (Reported) Simvastatin (Simvastatin*) 20 MG TABLET 1 TAB PO QPM CHOLESTEROL (Reported) Current Medications: Current Medications Sig/Julio Start time Last Medication Dose Route Stop Time Status Admin Acetaminophen 650 MG Q6P PRN 03/24 1944 AC PO Acetaminophen 1,000 MG Q6P PRN 03/24 194 AC IV Albuterol Sulfate 3 ML ONCE ONE 03/24 1400 DC 03/24 INH 03/24 1401 1408 Atorvastatin Calcium 10 MG 1700 03/25 1700 AC PO Azithromycin 500 MG DAILY@03/25 AC Sodium Chloride 250 ML IV Azithromycin 500 MG ONCE ONE 03/24 1730 DC 03/24 Sodium Chloride 250 ML IV 03/24 1829 1856 Calcitriol 0.25 MCG DAILY 03/25 1000 CAN PO Ceftriaxone Sodium 1,000 MG DAILY@03/25 AC IV Ceftriaxone Sodium 0 .STK-MED ONE 03/24 1842 DC .ROUTE Ceftriaxone Sodium 1,000 MG ONCE ONE 03/24 1730 DC 03/24 IV 03/24 1731 1947 Clindamycin 600 MG ONCE ONE 03/24 1630 DC 03/24 Dextrose/Water 50 ML IV 03/24 1659 1739 Clindamycin 300 MG ONCE ONE 03/24 1615 CAN IV 03/24 1616 Diltiazem HCl 180 MG DAILY 03/25 1000 AC PO Insulin Human Regular 4 UNITS .STK-MED ONE 03/25 0004 DC IV 03/25 0005 Insulin Human Regular 0 Q6 03/24 1940 AC 03/25 SC 0644 Ipratropium [place] 2.5 ML ONCE ONE 03/24 1400 DC 03/24 INH 03/24 1401 1407 Lorazepam 0.5 MG DAILY NEEDED PRN 03/24 1945 AC PO 03/31 194 Metoprolol Succinate 50 MG QAM 03/25 1000 AC PO Rivaroxaban 15 MG DAILY 03/25 1000 CAN PO Sodium Chloride 500 ML BOLUS ONE 03/24 1945 DC 03/25 IV 03/25 0544 0005 Sodium Chloride 1,000 ML BOLUS ONE 03/24 1545 DC 03/24 IV 03/24 1644 1600 Review of Systems Review of Systems: Unable to obtain review of systems Past History Travel History Traveled to [place] past 21 day No Medical History Neurological: dementia EENT: CIRCLE Cardiovascular: AFIB, CHF, hypertension, hyperlipidemia, PVD, DVT PE Respiratory: pulmonary embolism, pneumonia Gastrointestinal: NONE Hepatic: NONE Renal: NONE Musculoskeletal: rheumatoid arthritis, RT AKA Psychiatric: NONE Endocrine: diabetes, hypothyroidism Blood Disorders: DVT, IVC FILTER Cancer(s): NONE RHIT/Reproductive: NONE Other Medical Hx: 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 FH: lung cancer MOTHER FH: emphysema Psychosocial History Services at Home: Nursing Smoking Status: Unknown If Ever Smoked Functional Ability ADLs Needs Assist: dressing, eating, toileting, bathing. Ambulation: non-ambulatory IADLs Needs Assist: shopping, housework, finances, food prep, telephone, transportation, medication admin. Exam & Diagnostic Data Vital Signs and I&O Vital Signs Date Time Temp Pulse Resp B/P B/P Pulse O2 O2 Flow FiO2 Mean Ox Delivery Rate 03/25 0930 92 Nasal 2.0L Cannula 03/25 0856 94 Nasal 2.0L Cannula 03/25 0628 98.4 103 18 94 Nasal Cannula 03/24 2248 98.5 90 18 95 Nasal 2.0L Cannula 03/24 2229 Nasal 2.0L Cannula 03/24 2230 94/62 03/24 1948 98.9 97 20 107/61 97 Nasal 2.0L Cannula 03/24 1600 66 20 138/60 99 Nasal 2.0L Cannula 03/24 1430 97 Nasal 3.0L Cannula 03/24 1400 99 Nasal 2.0L Cannula 03/24 1344 94 Nasal 2.5L Cannula 03/24 1344 97.7 92 20 153/72 88 Room Air Intake & Output 03/25 0800 03/25 0000 03/24 1600 03/24 0800 03/24 0000 Intake Total 300 1000 Output Total 125 Balance 175 1000 Intake, IV 300 1000 Output, Urine 125 Patient 115 lb Weight Weight Reported by Patient Measurement Method Physical Exam: Patient appeared to be confused dementia unresponsive to questions Head normocephalic atraumatic Eyes sclera anicteric conjunctiva showed no pallor extraocular muscles were normal Neck no jugular venous distention no thyroid masses no palpable nodes Chest lungs were clear except decreased air entry in the left base Heart irregular rhythm with a ventricular rate of around 90 and a 1-21 Abdomen soft no organomegaly bowel sounds normal Extremities right below-knee amputation, left forefoot amputation Neurological could not be evaluated Labs/Raghu Results: Laboratory Tests 03/25 03/24 0614 2215 Chemistry Troponin I (< 0.11 ng/ml) 0.02 Hematology CBC w Diff NO MAN DIFF REQ WBC (4.8 - 10.8 /CUMM) 13.1 H RBC (4.20 - 5.40 /CUMM) 4.07 L Hgb (12.0 - 16.0 G/DL) 13.1 Hct (37 - 47 %) 39.6 MCV (81.0 - 99.0 FL) 97.2 MCH (27.0 - 31.0 PG) 32.3 H RDW (11.5 - 14.5 %) 14.5 Plt Count (130 - 400 /CUMM) 237 MPV (7.4 - 10.4 FL) 8.4 Gran % (42.2 - 75.2 %) 79.8 H Lymphocytes % (20.5 - 51.1 %) 10.5 L Monocytes % (1.7 - 9.3 %) 9.3 Eosinophils % (0 - 5 %) 0.2 Basophils % (0.0 - 2.0 %) 0.2 Absolute Granulocytes (1.4 - 6.5 /CUMM) 10.5 H Absolute Lymphocytes (1.2 - 3.4 /CUMM) 1.4 Absolute Monocytes (0.10 - 0.60 /CUMM) 1.2 H Absolute Eosinophils (0.0 - 0.7 /CUMM) 0 Absolute Basophils (0.0 - 0.2 /CUMM) 0 PUBS MCHC (33.0 - 37.0 G/DL) 33.2 03/24 03/24 1942 1700 Blood Gas pH (7.35 - 7.45 PH) 7.47 H pCO2 (35 - 45 TORR) 39 pO2 (80 - 100 TORR) 73 L HCO3 (21 - 28 MEQ/L) 28 ABG O2 Sat (Measured) (>96.0 %) 95.0 L P-50 (Temp Corrected) N Carboxyhemoglobin (1.5 - 5.0 %) 0 L O2 Concentration % 3L Temperature (97.0 - 100.0 FARH) 97.7 O2 Delivery Method NC Miscellaneous Phlebotomy Draw Site RIGHT BRACHIAL Urines Urine Color (YEL,AMB,STR) YEL Urine Clarity (CLEAR) CLEAR Urine pH (5.0 - 8.0) 6.5 Ur Specific [place] (1.001 - 1.035) 1.015 Urine Protein (NEG,<30 MG/DL) NEG Urine Ketones (NEG) NEG Urine Nitrite (NEG) NEG Urine Bilirubin (NEG) NEG Urine Urobilinogen (0.1 - 1.0 EU/dl) 0.2 Ur Leukocyte Esterase (NEG) TRACE H Ur Microscopic SEDIMENT EXAMINED Urine RBC (0 - 5 /HPF) 1-3 Urine WBC (0 - 2 /HPF) 1-3 H Ur Epithelial Cells (NONE,FEW) RARE Urine Bacteria (NEG/NONE) FEW H Hyaline Casts (0/LPF) 1-3 H Granular Casts (NONE /LPF) RARE H Urine Mucus (FEW,NONE) RARE Urine Hemoglobin (NEG) TRACE-INTACT Urine Glucose (N MG/DL) NEG 03/24 03/24 03/24 1651 1507 1426 Chemistry Sodium (137 - 145 mmol/L) 142 Potassium (3.5 - 5.1 mmol/L) 4.4 Chloride (98 - 107 mmol/L) 97 L Carbon Dioxide (22 - 30 mmol/L) 31 H Anion Gap (5 - 16) 13 BUN (7 - 17 mg/dL) 34 H Creatinine (0.5 - 1.0 mg/dL) 1.4 H Estimated GFR (>60 ml/min) 35 L BUN/Creatinine Ratio (7 - 25 %) 24.3 Glucose (65 - 99 mg/dL) 149 H Lactic Acid (0.7 - 2.1 mmol/L) Cancelled 1.7 Calcium (8.4 - 10.2 mg/dL) 13.6 H Total Bilirubin (0.2 - 1.3 mg/dL) 0.4 AST (14 - 36 U/L) 21 ALT (9 - 52 U/L) 36 Alkaline Phosphatase (<127 U/L) 55 Troponin I (< 0.11 ng/ml) 0.02 Bux-G-[place] Pept (<125 pg/mL) 3840 H Total Protein (6.3 - 8.2 g/dL) 6.7 Albumin (3.5 - 5.0 g/dL) 3.9 Globulin (1.9 - 4.2 gm/dL) 2.8 Albumin/Globulin Ratio (1.1 - 2.2 %) 1.4 Coagulation PT (9.4 - 12.5 SEC) 16.3 H INR (0.90 - 1.19) 1.56 H APTT (25 - 37 SEC) 29 D-Dimer High Sensitivty (0 - 243 ng/ml) 576 H Hematology CBC w Diff NO MAN DIFF REQ WBC (4.8 - 10.8 /CUMM) 12.9 H RBC (4.20 - 5.40 /CUMM) 4.57 Hgb (12.0 - 16.0 G/DL) 14.7 Hct (37 - 47 %) 43.8 MCV (81.0 - 99.0 FL) 95.8 MCH (27.0 - 31.0 PG) 32.1 H RDW (11.5 - 14.5 %) 14.3 Plt Count (130 - 400 /CUMM) 288 MPV (7.4 - 10.4 FL) 7.8 Gran % (42.2 - 75.2 %) 80.6 H Lymphocytes % (20.5 - 51.1 %) 9.7 L Monocytes % (1.7 - 9.3 %) 7.8 Eosinophils % (0 - 5 %) 1.4 Basophils % (0.0 - 2.0 %) 0.5 Absolute Granulocytes (1.4 - 6.5 /CUMM) 10.4 H Absolute Lymphocytes (1.2 - 3.4 /CUMM) 1.3 Absolute Monocytes (0.10 - 0.60 /CUMM) 1.0 H Absolute Eosinophils (0.0 - 0.7 /CUMM) 0.2 Absolute Basophils (0.0 - 0.2 /CUMM) 0.1 PUBS MCHC (33.0 - 37.0 G/DL) 33.5 Diagnostic Data EKG Results Atrial fibrillation with left bundle branch block rate appeared to be around 90 CXR Results Dense consolidation left lung base of left basilar infiltrate or atelectasis and probable left effusion. Other Results CT scan of the chestIMPRESSION: Loss left hemithorax with atelectasis and consolidation at left lower lobe. Moderate to large volume left pleural effusion which appears partially loculated. Assessment/Plan Assessment/Plan In summary this 86-year-old female has the following problems #1 Community acquired pneumonia with dense consolidation in the left lower lobe and probably secondary sympathetic left pleural effusion. #2. Atrial fibrillation persisted and chronic rate control strategy #3. On oral anticoagulation with Xarelto #4. Dementia #5. History of pulmonary embolism and deep vein thrombosis #6. Chronic diastolic congestive heart failure no evidence of acute congestive heart failure at this time #7. Left bundle branch block #8. Hypertension #9. 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 Diabetes mellitus #11. Rheumatoid arthritis I would continue her cardiac medications unless the anticoagulants as needed to be held prior to thoracentesis. There is no evidence of acute congestive heart failure. Her main problem at this time I believe his pneumonia and probably secondary sympathetic left. This is currently being evaluated. Her rate is controlled and she remains in atrial fibrillation. Consult Acknowledgment - Thank you for your consult request.
--- NOTE | 2017-03-25 11:57 | ECHOCARDIOGRAM REPORT ---
JUANITO LÓPEZ Age: 86 : 1930 Gender: F Exam Date: 03/24/2017 19:56 Exam Location: ER Ht (in): 60 Wt (lb): 115 BSA: 1.49 BP: 138 / 60 Ordering Physician: Byron Guardado MD Referring Physician: Ren Madrigal MD Technologist: Freya Carson MILENA Room Number: ER#16 Indications: HEART FAILURE Rhythm: Technical Quality: FINDINGS Left Ventricle Left ventricular cavity size normal. Left ventricular wall thickness mildly increased. Normal left ventricular ejection fraction estimated at 60-65%. Right Ventricle Right ventricle at upper limits of normal. Normal right ventricular free wall motion. Right Atrium Normal right atrial size. Left Atrium Mild left atrial dilatation. Mitral Valve Severe mitral annular calcification. Trace to mild mitral regurgitation. Aortic Valve Diffuse thickening (sclerosis) of the aortic valve cusps without reduced excursion. Tricuspid Valve Structurally normal tricuspid valve. Ooob-uo-ysuwbuye tricuspid regurgitation. Right ventricular systolic pressure estimated to be elevated at 35 mmHg. Pulmonic Valve Pulmonic valve not well visualized, grossly normal. Pericardium Small pericardial effusion. Left pleural effusion. Great Vessels Normal size aortic root. CONCLUSIONS Normal left ventricular systolic function with mild concentric hypertrophy. No significant Valvular abnormalities noted. Ren Madrigal M.D. (Electronically Signed) Final Date: 25 March 2017 11:56 MEASUREMENTS (Male / Female) Normal Values 2D ECHO LV Diastolic Diameter PLAX 3.9 cm 4.2 - 5.9 / 3.9 - 5.3 cm LV Systolic Diameter PLAX 2.2 cm 2.1 - 4.0 cm LV Fractional Shortening PLAX 43.6 % 25 - 46 % LV Ejection Fraction 2D Teich 75.4 % IVS Diastolic Thickness 1.2 cm LVPW Diastolic Thickness 1.0 cm LV Relative Wall Thickness 0.6 RV Internal Dim ED PLAX 3.1 cm 1.9 - 3.8 cm LVOT Diameter 1.9 cm Aortic Root Diameter 2.3 cm LA Systolic Diameter LX 4.1 cm 3.0 - 4.0 / 2.7 - 3.8 cm LA Volume 57.0 cm 18 - 58 / 22 - 52 cm Ascending Aorta Diameter 2.5 cm DOPPLER AV Peak Velocity 136.0 cm/s AV Peak Gradient 7.4 mmHg AV Mean Velocity 96.1 cm/s AV Mean Gradient 4.0 mmHg AV Velocity Time Integral 23.6 cm LVOT Peak Velocity 86.5 cm/s LVOT Peak Gradient 3.0 mmHg LVOT Mean Velocity 52.2 cm/s LVOT Mean Gradient 1.0 mmHg LVOT Velocity Time Integral 14.2 cm LVOT Stroke Volume 40.3 cm AV Area Cont Eq vti 1.7 cm AV Area Cont Eq pk 1.8 cm MV Peak Velocity 87.6 cm/s MV Peak Gradient 3.1 mmHg MV Mean Velocity 48.2 cm/s MV Mean Gradient 1.0 mmHg Mitral E Point Velocity 81.9 cm/s MV PHT Velocity 89.5 cm/s MV Deceleration [place] 254.0 cm/s MV Pressure Half Time 105.7 ms MV Area PHT 2.1 cm MV Deceleration Time 206.0 ms TR Peak Velocity 278.0 cm/s TR Peak Gradient 30.9 mmHg Right Atrial Pressure 5.0 mmHg Pulmonary Artery Systolic Pressu 35.9 mmHg Right Ventricular Systolic Press 35.9 mmHg PV Peak Velocity 115.0 cm/s PV Peak Gradient 5.3 mmHg PV Mean Velocity 70.7 cm/s PV Mean Gradient 2.0 mmHg PV Velocity Time Integral 16.3 cm LV E' Lateral Velocity 8.2 cm/s Mitral E to LV E' Lateral Ratio 10.0 LV E' Septal Velocity 5.9 cm/s Mitral E to LV E' Septal Ratio 13.8
[2017-03-25 14:54] VITALS: BP 108/64
--- NOTE | 2017-03-25 15:58 | RADIOLOGY REPORT ---
EXAMINATION: XR ABDOMEN CLINICAL INDICATION: Abdominal tenderness COMPARISON: 05/28/2014 TECHNIQUE: AP view of the abdomen. FINDINGS: The most lateral portion of the right abdomen is excluded from the [id number] on this single radiographic projection. The bowel gas pattern is normal and gas is seen to level the rectum. Moderate amount of stool is present within the colon and rectum. Query whether patient has constipation. No evidence of bowel obstruction or overt pneumoperitoneum. Atherosclerotic calcifications, including the splenic artery. Inferior vena cava filter is seen at the L2-L3 level. The visualized components of the lateral total hip arthroplasties are intact. IMPRESSION: 1. No acute radiographic findings within the examined abdomen. 2. No evidence of bowel obstruction. Moderate amount of stool is present within the colon and rectum.
[2017-03-25 20:24] LABS: PTT 50 SEC (25-37)
[2017-03-25 22:02] VITALS: BP 104/62
[2017-03-26 04:08] LABS: PTT 64 SEC (25-37)
--- NOTE | 2017-03-26 07:43 | PN- Housestaff ---
See Addendum Subjective Follow-up For: Pleural effusion Tele-Events Since Last Visit: Not on tele Subjective: No overnight events. She is a little more alert but talking very softly and I can't hear what she is saying. Review of Systems Constitutional: Reports: no symptoms. EENTM: Reports: no symptoms. Cardiovascular: Reports: no symptoms. Respiratory: Reports: no symptoms. Gastrointestinal: Reports: no symptoms. Genitourinary: Reports: no symptoms. Musculoskeletal: Reports: no symptoms. Skin: Reports: no symptoms. Neurological/Psychological: Reports: no symptoms. Hematologic/Endocrine: Reports: no symptoms. Immunologic/Allergic: Reports: no symptoms. Objective Last 24 Hrs of Vital Signs/I&O Vital Signs Date Time Temp Pulse Resp B/P B/P Pulse O2 O2 Flow FiO2 Mean Ox Delivery Rate 03/26 0648 98.5 87 18 92 Nasal Cannula 03/26 0000 Nasal 2.0L Cannula 03/25 2202 98.9 90 20 104/62 93 Nasal Cannula 03/25 1845 85 Room Air 03/25 1719 94 Nasal 2.0L Cannula 03/25 1454 99.6 98 20 108/64 95 Nasal 2.0L Cannula 03/25 1001 100 106/62 03/25 0930 92 Nasal 2.0L Cannula 03/25 0900 Nasal 2.0L Cannula 03/25 0856 94 Nasal 2.0L Cannula Intake & Output 03/26 0800 03/26 0000 03/25 1600 Intake Total 75 204 700 Output Total 125 150 150 Balance -50 54 550 Intake, IV 204 300 Intake, Oral 75 400 Output, Urine 125 150 150 Physical Exam General Appearance: Alert, Oriented X3, Cooperative, No Acute Distress Cardiovascular: Regular Rate, Normal S1, Normal S2 Lungs: crackles Abdomen: Normal Bowel Sounds, Soft, No Tenderness Extremities: stable Current Medications: Current Medications Sig/Julio Start time Last Medication Dose Route Stop Time Status Admin Acetaminophen 650 MG Q6P PRN 03/24 1944 DC PO Acetaminophen 1,000 MG Q6P PRN 03/24 1944 AC IV Albuterol Sulfate 3 ML BID 03/25 1000 AC 03/25 INH 1845 Atorvastatin Calcium 10 MG 1700 03/25 1700 AC 03/25 PO 1607 Azithromycin 500 MG DAILY@03/25 AC 03/25 Sodium Chloride 250 ML IV 2019 Bisacodyl 5 MG DAILY NEEDED PRN 03/26 0745 AC PO Bisacodyl 10 MG DAILY NEEDED PRN 03/26 0745 AC GA Calcitriol 0.25 MCG DAILY 03/25 1000 CAN PO Ceftriaxone Sodium 1,000 MG DAILY@03/25 AC 03/25 IV 2019 Diltiazem HCl 180 MG DAILY 03/25 1000 AC 03/25 PO 1001 Heparin Sodium 2,088 UNIT BOLUS ONE 03/25 2120 DC (Porcine) IV 03/25 2121 Heparin Sodium 25,000 UNIT Q24H 03/25 1130 AC 03/25 (Porcine) IV 1307 Sodium Chloride 500 ML Insulin Aspart 0 TIDAC 03/25 1700 AC 03/25 SC 1813 Insulin Human Regular 0 Q6 03/24 1940 DC 03/25 SC 0644 Lorazepam 0.5 MG DAILY NEEDED PRN 03/24 1945 AC PO 03/31 194 Metoprolol Succinate 50 MG QAM 03/25 1000 AC 03/25 PO 1001 Polyethylene Glycol 17 GM DAILY PRN 03/25 1815 DC PO Senna/Docusate Sodium 2 TAB DAILY PRN 03/25 1815 AC 03/26 PO 0000 Sodium Chloride 500 ML BOLUS ONE 03/25 1545 DC 03/25 IV 03/26 0144 1607 Last 24 Hrs of Lab/Raghu Results Last 24 Hrs of Labs/Mics: Laboratory Tests 03/26/17 0610: Sodium Pending, Potassium Pending, Chloride Pending, Carbon Dioxide Pending, Anion Gap Pending, BUN Pending, Creatinine Pending, BUN/Creatinine Ratio Pending , CBC w Diff Pending, WBC Pending, RBC Pending, Hgb Pending, Hct Pending, MCV Pending, MCH Pending, RDW Pending, Plt Count Pending, MPV Pending, PUBS MCHC Pending 03/26/17 0320: APTT 64 H 03/25/17 1910: APTT 50 H 03/25/17 1235: Anion Gap 12, Estimated GFR 42 L, BUN/Creatinine Ratio 29.2 H Assessment/Plan Assessment: 86 y old female with a PMH of dementia, A. fib on Xeralto, peripheral artery disease, chronic diastolic heart failure, rheumatoid arthritis, diabetes mellitus who presents to [place] ED with her family very confused and not able to provide history. Problem List: 1. Partially loculated pleural effusion 2. Community-acquired pneumonia 3. Acute kidney injury 4. Delirium #Partially loculated pleural effusion: The patient is coming in with productive cough, confusion, and shortness of breath. She is found to have a moderate to large partially loculated pleural effusion on CT scan. Cultures have been negative. She has been afebrile. She is also delirious talking to the family compared to baseline. This is likely secondary to the infection. We will be draining the partially loculated effusion today. Leukocytosis is slightly uptrending. -Appreciate pulmonology recommendations -Appreciate cardiology recommendations -Continue ceftriaxone and azithromycin -Holding rivaroxaban. IV heparin -TTE -Follow cultures -IR drainage today #Acute kidney injury: Patient presented with creatinine 1.4. Baseline is 1.0. Likely prerenal azotemia in the setting of infection. It is improving. -Avoid nephrotoxic medications -Holding GASTON inhibitor and furosemide #Constipation: Abdominal x-ray shows moderate amount of stool. Last bowel movement was March 22 -Bisacodyl when necessary -Senna when necessary #Chronic medical problems: -Continue home atorvastatin, metoprolol, diltiazem DVT prophylaxis with IV heparin until drainage Heart healthy diet, puree, nectar thick Full code Problem List: 1. Pleural effusion Pain Ratin Pain Location: no Pain Goal: Remain pain free Pain Plan: see a/p Tomorrow's Labs & Rationales: cbc bep
[2017-03-26 08:07] LABS: ABSOLUTE BASOPHIL COUNT 0 /CUMM (0.0-0.2); ABSOLUTE EOSINOPHIL COUNT 0 /CUMM (0.0-0.7); ABSOLUTE GRANULOCYTE CT 11.4 /CUMM (1.4-6.5); ABSOLUTE LYMPH COUNT 1.1 /CUMM (1.2-3.4); ABSOLUTE MONOCYTE COUNT 1.5 /CUMM (0.10-0.60); BASOPHIL % 0.1 % (0.0-2.0); EOSINOPHIL % 0 % (0-5); GRANULOCYTE % 81.4 % (42.2-75.2); MEAN CORPUSCULAR HGB 32.4 PG (27.0-31.0); MEAN CORPUSCULAR HGB CONC 33.6 G/DL (33.0-37.0); MEAN CORPUSCULAR VOLUME 96.6 FL (81.0-99.0); MEAN PLATELET VOLUME 8.5 FL (7.4-10.4); PLATELET COUNT 225 /CUMM (130-400); RBC DISTRIBUTION WIDTH 14.7 % (11.5-14.5); RED BLOOD CELL CT 3.55 /CUMM (4.20-5.40); WHITE BLOOD CELL COUNT 14.1 /CUMM (4.8-10.8)
[2017-03-26 08:31] LABS: HEMATOCRIT 34.3 % (37-47)
--- NOTE | 2017-03-26 10:00 | PN- Cardiology ---
Subjective Subjective: Patient confused, noncommunicative Combative with staff overnight Events of the past 24 hours have been reviewed Review of Systems: The review of systems has been unable to be completely obtained secondary to the patient's mental status Objective Vital Signs and I&Os Vital Signs Date Time Temp Pulse Resp B/P B/P Pulse O2 O2 Flow FiO2 Mean Ox Delivery Rate 03/26 0833 94 Nasal 2.0L Cannula 03/26 0818 94 Nasal 2.0L Cannula 03/26 0648 98.5 87 18 92 Nasal Cannula 03/26 0000 Nasal 2.0L Cannula 03/25 2202 98.9 90 20 104/62 93 Nasal Cannula 03/25 1845 85 Room Air 03/25 1719 94 Nasal 2.0L Cannula 03/25 1454 99.6 98 20 108/64 95 Nasal 2.0L Cannula 03/25 1001 100 106/62 Intake & Output 03/26 1600 03/26 0800 03/26 0000 03/25 1600 03/25 0800 03/25 0000 Intake Total 75 204 315 141 1560 Output Total 125 150 150 125 Balance -50 54 191 355 1097 Intake, IV 204 128 400 6429 Intake, Oral 75 400 Output, Urine 125 150 150 125 Physical Exam: General: Nontoxic, no apparent distress, lethargic. HEENT: Sclera and conjunctiva within normal limits, without xanthelasmas. Neck: Carotids 2+ without bruits. Respiratory: Scattered rhonchi and rales, air movement is decreased at bases, without accessory respiratory muscle use. Heart: Regular rate and rhythm, 2/6 systolic crescendo decrescendo murmur heard best at the right sternal border, without JVD. Abdomen: Soft, nontender, no masses, normoactive bowel sounds. Extremities: Without clubbing, cyanosis, without edema, status post right BKA. Neuro: Nonfocal exam, unable to fully assess Skin: Within normal limits without lesions. Psych: Mood and affect: Unable to assess Current Medications: Current Medications Sig/Julio Start time Last Medication Dose Route Stop Time Status Admin Acetaminophen 650 MG Q6P PRN 03/24 1944 DC PO Acetaminophen 1,000 MG Q6P PRN 03/24 1944 AC IV Albuterol Sulfate 3 ML BID 03/25 1000 AC 03/26 INH 0832 Atorvastatin Calcium 10 MG 1700 03/25 1700 AC 03/25 PO 1607 Azithromycin 500 MG DAILY@03/25 AC 03/25 Sodium Chloride 250 ML IV 2019 Bisacodyl 5 MG DAILY NEEDED PRN 03/26 0745 AC PO Bisacodyl 10 MG DAILY NEEDED PRN 03/26 0745 AC AR Ceftriaxone Sodium 1,000 MG DAILY@03/25 AC 03/25 IV 2019 Diltiazem HCl 180 MG DAILY 03/25 1000 AC 03/25 PO 1001 Heparin Sodium 2,088 UNIT BOLUS ONE 03/25 2120 DC (Porcine) IV 03/25 2121 Heparin Sodium 25,000 UNIT Q24H 03/25 1130 DC 03/25 (Porcine) IV 1307 Sodium Chloride 500 ML Insulin Aspart 0 TIDAC 03/25 1700 AC 03/25 SC 1813 Insulin Human Regular 0 Q6 03/24 1940 DC 03/25 SC 0644 Lorazepam 0.5 MG DAILY NEEDED PRN 03/24 1945 DC PO 03/31 1944 Metoprolol Succinate 50 MG QAM 03/25 1000 AC 03/25 PO 1001 Polyethylene Glycol 17 GM DAILY PRN 03/25 1815 DC PO Potassium Chloride 40 MEQ ONCE ONE 03/26 0900 DC PO 03/26 0901 Potassium Chloride 10 MEQ Q1H 03/26 0845 DC IV 03/26 0946 Senna/Docusate Sodium 2 TAB DAILY PRN 03/25 1815 AC 03/26 PO 0000 Sodium Chloride 500 ML BOLUS ONE 03/25 1545 DC 03/25 IV 03/26 0144 1607 Results Last 48 Hrs of Labs/Mics: Laboratory Tests 03/26/17 0610: Anion Gap 9, Estimated GFR 42 L, BUN/Creatinine Ratio 29.2 H, Phosphorus 2.5, Magnesium 2.2, CBC w Diff NO MAN DIFF REQ, RBC 3.55 L, MCV 96.6, MCH 32.4 H, RDW 14.7 H, MPV 8.5, Gran % 81.4 H, Lymphocytes % 7.6 L, Monocytes % 10.9 H, Eosinophils % 0, Basophils % 0.1, Absolute Granulocytes 11.4 H, Absolute Lymphocytes 1.1 L, Absolute Monocytes 1.5 H, Absolute Eosinophils 0, Absolute Basophils 0, PUBS MCHC 33.6 03/26/17 0320: APTT 64 H 03/25/17 1910: APTT 50 H 03/25/17 1235: Anion Gap 12, Estimated GFR 42 L, BUN/Creatinine Ratio 29.2 H 03/25/17 0614: CBC w Diff NO MAN DIFF REQ, RBC 4.07 L, MCV 97.2, MCH 32.3 H, RDW 14.5, MPV 8.4, Gran % 79.8 H, Lymphocytes % 10.5 L, Monocytes % 9.3, Eosinophils % 0.2, Basophils % 0.2, Absolute Granulocytes 10.5 H, Absolute Lymphocytes 1.4, Absolute Monocytes 1.2 H, Absolute Eosinophils 0, Absolute Basophils 0, PUBS MCHC 33.2 03/24/17 2215: Troponin I 0.02 03/24/17 1942: Urine Color YEL, Urine Clarity CLEAR, Urine pH 6.5, Ur Specific Rice 1.015, Urine Protein NEG, Urine Ketones NEG, Urine Nitrite NEG, Urine Bilirubin NEG, Urine Urobilinogen 0.2, Ur Leukocyte Esterase TRACE H, Ur Microscopic SEDIMENT EXAMINED, Urine RBC 1-3, Urine WBC 1-3 H, Ur Epithelial Cells RARE, Urine Bacteria FEW H, Hyaline Casts 1-3 H, Granular Casts RARE H, Urine Mucus RARE, Urine Hemoglobin TRACE-INTACT, Urine Glucose NEG 03/24/17 1700: pH 7.47 H, pCO2 39, pO2 73 L, HCO3 28, ABG O2 Sat (Measured) 95.0 L, P-50 ( Temp Corrected) N, Carboxyhemoglobin 0 L, O2 Concentration % 3L, Temperature 97.7, O2 Delivery Method NC, Phlebotomy Draw Site RIGHT BRACHIAL 03/24/17 1651: Lactic Acid Cancelled 03/24/17 1507: Anion Gap 13, Estimated GFR 35 L, BUN/Creatinine Ratio 24.3, Glucose 149 H, Lactic Acid 1.7, Calcium 13.6 H, Total Bilirubin 0.4, AST 21, ALT 36, Alkaline Phosphatase 55, Troponin I 0.02, Kba-Q-Yxnjbpztuxf Pept 3840 H, Total Protein 6.7, Albumin 3.9, Globulin 2.8, Albumin/Globulin Ratio 1.4, PT 16.3 H, INR 1.56 H, APTT 29, D-Dimer High Sensitivty 576 H 03/24/17 1426: CBC w Diff NO MAN DIFF REQ, RBC 4.57, MCV 95.8, MCH 32.1 H, RDW 14.3, MPV 7.8, Gran % 80.6 H, Lymphocytes % 9.7 L, Monocytes % 7.8, Eosinophils % 1.4, Basophils % 0.5, Absolute Granulocytes 10.4 H, Absolute Lymphocytes 1.3, Absolute Monocytes 1.0 H, Absolute Eosinophils 0.2, Absolute Basophils 0.1, PUBS MCHC 33.5 Microbiology 03/24 1941 URINE ROUT: Legionella Antigen - COMP 03/24 1941 URINE ROUT: Streptococcus pneumoniae Antigen (M - COMP 03/24 1400 NASOPHARYN: Influenza Virus A & B Rapid Smear - COMP Assessment/Plan Assessment/Plan The patient is an 86-year-old woman with a PMH of dementia, A. fib on Xeralto, peripheral artery disease, chronic diastolic heart failure, rheumatoid arthritis and diabetes mellitus she presented to our hospital with a productive cough which has been increasingly worse over the past few days, as well as increasing confusion/dementia, in the setting of pneumonia and a parapneumonic effusion #1 Community acquired pneumonia in the left lower lobe and left pleural effusion. #2. Atrial fibrillation persisted and chronic rate control strategy #3. On oral anticoagulation with Xarelto #4. Dementia #5. History of pulmonary embolism and deep vein thrombosis #6. Chronic diastolic congestive heart failure. No acute CHF at this time #7. Left bundle branch block #8. Hypertension #9. 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 Diabetes mellitus #11. Rheumatoid arthritis We will continue an overall conservative approach for cardiac issues at this time. As thoracentesis is contemplated, her regimen of Xarelto is being held, and she will maintain on IV heparin. This will be converted back to her outpatient regimen of Xarelto prior to discharge. Continue telemetry? Yes
[2017-03-26 14:24] VITALS: BP 94/68
--- NOTE | 2017-03-26 16:52 | Event Note ---
Event Note Event Note: around 1:30 pm 03/16/2017 I was informed by the IR that patient thoracenthesis was cancelled per conversation with
[2017-03-26 20:33] LABS: PTT 62 SEC (25-37)
[2017-03-26 22:00] VITALS: BP 90/60
[2017-03-27 06:23] VITALS: BP 92/52
[2017-03-27 07:21] LABS: ABSOLUTE BASOPHIL COUNT 0 /CUMM (0.0-0.2); ABSOLUTE EOSINOPHIL COUNT 0.1 /CUMM (0.0-0.7); ABSOLUTE GRANULOCYTE CT 8.8 /CUMM (1.4-6.5); ABSOLUTE LYMPH COUNT 0.9 /CUMM (1.2-3.4); ABSOLUTE MONOCYTE COUNT 1.2 /CUMM (0.10-0.60); BASOPHIL % 0.2 % (0.0-2.0); EOSINOPHIL % 0.8 % (0-5); GRANULOCYTE % 80.2 % (42.2-75.2); HEMATOCRIT 31.1 % (37-47); MEAN CORPUSCULAR HGB 32.7 PG (27.0-31.0); MEAN CORPUSCULAR HGB CONC 33.9 G/DL (33.0-37.0); MEAN CORPUSCULAR VOLUME 96.6 FL (81.0-99.0); MEAN PLATELET VOLUME 8.5 FL (7.4-10.4); PLATELET COUNT 219 /CUMM (130-400); RED BLOOD CELL CT 3.23 /CUMM (4.20-5.40)
[2017-03-27 10:32] LABS: PTT 55 SEC (25-37)
--- NOTE | 2017-03-27 11:04 | PN- Housestaff ---
Bhavya BLAKELY,Homero 03/27/17 1103: Subjective Follow-up For: Pleural effusion, CAP Tele-Events Since Last Visit: not on tele Subjective: No overnight events. She had a low grade fever this AM and yesterday. Repeat BC were taken. This morning, a little more awake. Still not talking much or loudly Review of Systems Constitutional: Reports: no symptoms. EENTM: Reports: no symptoms. Cardiovascular: Reports: no symptoms. Respiratory: Reports: no symptoms. Gastrointestinal: Reports: no symptoms. Genitourinary: Reports: no symptoms. Musculoskeletal: Reports: no symptoms. Skin: Reports: no symptoms. Neurological/Psychological: Reports: no symptoms. Hematologic/Endocrine: Reports: no symptoms. Immunologic/Allergic: Reports: no symptoms. Objective Last 24 Hrs of Vital Signs/I&O Vital Signs Date Time Temp Pulse Resp B/P B/P Pulse O2 O2 Flow FiO2 Mean Ox Delivery Rate 03/27 0745 98.2 03/27 0646 100.0 03/27 0623 100.0 94 18 92/52 90 Nasal 2.0L Cannula 03/27 0000 96 Nasal 2.0L Cannula 03/26 2200 97.5 82 18 90/60 96 Nasal 2.0L Cannula 03/26 2044 91 Nasal 2.0L Cannula 03/26 1751 95 Nasal 2.0L Cannula 03/26 1456 100.3 03/26 1424 100.5 85 18 94/68 91 Nasal 2.0L Cannula Intake & Output 03/27 1600 03/27 0800 03/27 0000 Intake Total 166.4 243.2 Output Total Balance 166.4 243.2 Intake, IV 166.4 183.2 Intake, Oral 0 60 Number 1 Bowel Movements Physical Exam General Appearance: Cooperative, No Acute Distress Cardiovascular: Regular Rate, Normal S1, Normal S2 Lungs: mild wheezing Abdomen: Normal Bowel Sounds, Soft, No Tenderness Extremities: No Edema Current Medications: Current Medications Sig/Julio Start time Last Medication Dose Route Stop Time Status Admin Acetaminophen 975 MG ONCE ONE 03/26 1430 DC 03/26 PO 03/26 1431 1456 Acetaminophen 1,000 MG Q6P PRN 03/24 1945 AC 03/27 IV 0646 Albuterol Sulfate 3 ML BID 03/25 1000 AC 03/27 INH 0955 Atorvastatin Calcium 10 MG 1700 03/25 1700 AC 03/26 PO 1555 Azithromycin 500 MG DAILY@03/26 CAN Dextrose/Water 250 ML IV Azithromycin 500 MG DAILY@03/26 AC 03/26 Dextrose/Water 250 ML IV 2028 Azithromycin 500 MG DAILY@03/25 DC 03/25 Sodium Chloride 250 ML IV 2019 Bisacodyl 5 MG DAILY NEEDED PRN 03/26 0745 AC 03/26 PO 0955 Bisacodyl 10 MG DAILY NEEDED PRN 03/26 0745 AC 03/26 FL 1759 Ceftriaxone Sodium 1,000 MG DAILY@03/25 AC 03/26 IV 2029 Diltiazem HCl 180 MG DAILY 03/25 1000 AC 03/26 PO 0955 Heparin Sodium 25,000 UNIT Q24H 03/26 1330 AC 03/26 (Porcine) IV 1546 Sodium Chloride 500 ML Insulin Aspart 0 TIDAC 03/25 1700 AC 03/27 SC 0906 Metoprolol Succinate 50 MG QAM 03/25 1000 AC 03/26 PO 0955 Prednisone 2.5 MG DAILY 03/26 1649 AC 03/27 PO 0905 Senna/Docusate Sodium 2 TAB DAILY PRN 03/25 1815 AC 03/26 PO 0955 Last 24 Hrs of Lab/Raghu Results Last 24 Hrs of Labs/Mics: Laboratory Tests 03/27/17 0844: APTT 55 H 03/27/17 0646: Anion Gap 10, Estimated GFR 47 L, BUN/Creatinine Ratio 37.3 H, CBC w Diff NO MAN DIFF REQ, RBC 3.23 L, MCV 96.6, MCH 32.7 H, RDW 15.0 H, MPV 8.5, Gran % 80.2 H, Lymphocytes % 8.1 L, Monocytes % 10.7 H, Eosinophils % 0.8, Basophils % 0.2, Absolute Granulocytes 8.8 H, Absolute Lymphocytes 0.9 L, Absolute Monocytes 1.2 H, Absolute Eosinophils 0.1, Absolute Basophils 0, PUBS MCHC 33.9 03/26/171999: APTT 62 H 03/26/17 1530: APTT Cancelled Microbiology 03/26 1605 BLOOD: Blood Culture - RECD 03/26 1525 BLOOD: Blood Culture - RECD Assessment/Plan Assessment: 86 y old female with a PMH of dementia, A. fib on Xeralto, peripheral artery disease, chronic diastolic heart failure, rheumatoid arthritis, diabetes mellitus who presents to [facility] with her family very confused and not able to provide history. Problem List: 1. Partially loculated pleural effusion 2. Community-acquired pneumonia 3. Acute kidney injury 4. Delirium #Partially loculated pleural effusion: The patient is coming in with productive cough, confusion, and shortness of breath. She is found to have a moderate to large partially loculated pleural effusion on CT scan. Cultures have been negative. This is likely secondary to the infection. IR and pulm decided not to drain the effusion. Leukocytosis is now improving. She did have another low- grade fever yesterday and a repeat blood culture was taken. Nothing has grown. TTE showed EF 60-65% and RV pressure 35 mmHg. -Appreciate pulmonology recommendations -Appreciate cardiology recommendations -Continue ceftriaxone and azithromycin -Holding rivaroxaban. IV heparin -Follow cultures -F/u CXR #Acute kidney injury: Patient presented with creatinine 1.4. Baseline is 1.0. Likely prerenal azotemia in the setting of infection. It is improving. -Avoid nephrotoxic medications -Holding GASTON inhibitor and furosemide #Constipation: Abdominal x-ray shows moderate amount of stool. Last bowel movement was March 22 -Bisacodyl when necessary -Senna when necessary #Chronic medical problems: -Continue home atorvastatin, metoprolol, diltiazem DVT prophylaxis with IV heparin until drainage Heart healthy diet, puree, nectar thick Full code Problem List: 1. Pleural effusion Pain Ratin Pain Location: no Pain Goal: Remain pain free Pain Plan: see a/p Tomorrow's Labs & Rationales: cbc, bep Patricia BLAKELY,Renato 03/27/17 1104: Attending MD Review Statement Attending Statement Attending MD Statement: examined this patient, discuss w/resident/PA/LOT ASSOCIATE, agreed w/resident/PA/LOT ASSOCIATE, discussed with family, reviewed EMR data (avail), discussed with nursing, discussed with case mgmt, reviewed images, amended to note Attending Assessment/Plan: Impression 86 year old woman * partially loculated pleural effusion * community acquired pneumonia left side * a.fib on xarelto * ROBINSON improved * Delirium Plan -temp 100 overnight - borderline BP -CXR today - portable given patient's condition -wbc improved -on ceftriaxone and zithromax -cont iv heparin - hold xarelto in anticipation of possible thoracentesis - thoracentesis was held yesterday due to a small effusion per IR - per medical record Discussed in detail with multiple family members the status of the left sided loculated pleural effusion along with housestaff. Options such as thoracentesis was previously held which is reasonable as this would not address the other "pockets" of loculation. A chest tube/pigtail can be a consideration however we will continue to discuss how invasive of therapy we will pursue. Certainly a VATS would be very risky and not the next step at this time. We will continue to observe on antibiotics. Additionally in [address] scan showed an effusion on the left, leaving us to consider that the effusion that we are seeing is chronic and will have residual loculated fluid upon completion of therapy. DVT prophylaxis at all times
--- NOTE | 2017-03-27 13:17 | RADIOLOGY REPORT ---
EXAMINATION: XR PORTABLE CHEST CLINICAL INFORMATION: Shortness of breath. Pleural effusion. COMPARISON: Chest done on 03/24/2017. TECHNIQUE: Portable frontal view of the chest was obtained. FINDINGS: [id number] left-sided pleural effusion, shows significant interval increase since 03/24/2017. The left lower lobe of the lung is nonaerated, may represent compressive atelectasis versus infiltrate or combination thereof. The left upper lobe of the lung is partially aerated, the aerated part appears unremarkable. Few patchy opacities are noted at right upper lung field adjacent to the mediastinum, otherwise unremarkable. IMPRESSION: [id number] left-sided pleural effusion with underlying collapse consolidation of left lower lobe and partial likely compressive atelectasis of left upper lobe of the lung. Few patchy airspace disease at right upper lung field adjacent to the mediastinum.
[2017-03-27 15:05] VITALS: BP 90/50
[2017-03-27 19:18] LABS: PTT 81 SEC (25-37)
[2017-03-27 22:16] VITALS: BP 118/60
[2017-03-27 22:20] VITALS: BP 110/60
[2017-03-28 07:24] VITALS: BP 98/62
[2017-03-28 09:16] LABS: ABSOLUTE BASOPHIL COUNT 0 /CUMM (0.0-0.2); ABSOLUTE EOSINOPHIL COUNT 0.1 /CUMM (0.0-0.7); ABSOLUTE GRANULOCYTE CT 7.9 /CUMM (1.4-6.5); ABSOLUTE MONOCYTE COUNT 1.1 /CUMM (0.10-0.60); BASOPHIL % 0.2 % (0.0-2.0); EOSINOPHIL % 1.2 % (0-5); HEMATOCRIT 33.9 % (37-47); MEAN CORPUSCULAR HGB 32.3 PG (27.0-31.0); MEAN CORPUSCULAR HGB CONC 33.5 G/DL (33.0-37.0); MEAN CORPUSCULAR VOLUME 96.2 FL (81.0-99.0); MEAN PLATELET VOLUME 8.5 FL (7.4-10.4); PLATELET COUNT 274 /CUMM (130-400); RBC DISTRIBUTION WIDTH 15.1 % (11.5-14.5); RED BLOOD CELL CT 3.53 /CUMM (4.20-5.40); WHITE BLOOD CELL COUNT 10.1 /CUMM (4.8-10.8)
[2017-03-28 09:22] LABS: PTT 43 SEC (25-37)
--- NOTE | 2017-03-28 10:52 | PN- Att Addend ---
Attending Addendum Attending Brief Note Patient seen and examined this morning. She appears to be comfortable she has been transferred to [facility]. Afebrile with a MAXIMUM TEMPERATURE of 99.7. Leukocytosis has resolved it is currently 10.1. Does not offer review of systems. Generally - Awake, not communicating at baseline Head and neck - normocephalic, atraumatic, EOMI grossly intact Cardiovascular - S1, S2, systolic murmur Lungs -rare rhonchi with diminished breath sounds at the bases Abdomen - Bowel sounds positive, soft, non-tender Extremities - without edema, hx bka Current Medications Sig/Julio Start time Last Medication Dose Route Stop Time Status Admin Acetaminophen 1,000 MG Q6P PRN 03/24 1945 AC 03/27 IV 0646 Albuterol Sulfate 3 ML BID 03/25 1000 AC 03/27 INH 2231 Atorvastatin Calcium 10 [place] 17003/25 1700 AC 03/27 PO 1734 Azithromycin 500 MG DAILY@03/26 Dextrose/Water 250 ML IV 2135 Bisacodyl 5 MG DAILY NEEDED PRN 03/26 0745 AC 03/26 PO 0955 Bisacodyl 10 MG DAILY NEEDED PRN 03/26 0745 AC 03/26 NE 1759 Ceftriaxone Sodium 1,000 MG DAILY@03/25 AC 03/27 IV 2135 Diltiazem HCl 180 MG DAILY 03/25 1000 AC 03/26 PO 0955 Heparin Sodium 3,915 UNIT ONE ONE 03/28 0945 DC 03/28 (Porcine) IV 03/28 0946 1031 Heparin Sodium 2,084 UNIT ONE ONE 03/27 1315 DC (Porcine) IV 03/27 1316 Heparin Sodium 25,000 UNIT Q24H 03/26 1330 AC 03/28 (Porcine) IV 0944 Sodium Chloride 500 ML Insulin Aspart 0 TIDAC 03/25 1700 AC 03/28 SC 0845 Metoprolol Succinate 50 MG QAM 03/25 1000 AC 03/26 PO 0955 Prednisone 2.5 MG DAILY 03/26 1649 AC 03/28 PO 0845 Senna/Docusate Sodium 2 TAB DAILY PRN 03/25 1815 AC 03/26 PO 0955 Laboratory Tests 03/28/17 0830: Anion Gap 14, Estimated GFR 52 L, BUN/Creatinine Ratio 36.0 H, APTT 43 H, CBC w Diff NO MAN DIFF REQ, RBC 3.53 L, MCV 96.2, MCH 32.3 H, RDW 15.1 H, MPV 8.5 , Gran % 78.0 H, Lymphocytes % 10.2 L, Monocytes % 10.4 H, Eosinophils % 1.2, Basophils % 0.2, Absolute Granulocytes 7.9 H, Absolute Lymphocytes 1.0 L, Absolute Monocytes 1.1 H, Absolute Eosinophils 0.1, Absolute Basophils 0, PUBS MCHC 33.5 03/27/17 1853: APTT 81 H Vital Signs Date Time Temp Pulse Resp B/P B/P Pulse O2 O2 Flow FiO2 Mean Ox Delivery Rate 03/28 0915 92 Nasal 2.0L Cannula 03/28 0846 92/60 03/28 0800 92 Nasal 2.0L Cannula 03/28 0724 99.3 109 20 98/62 91 Nasal 2.0L Cannula 03/28 0000 Nasal 2.0L Cannula 03/27 2232 93 Nasal 2.0L Cannula 03/27 2220 99.7 100 20 110/60 92 03/27 1600 Nasal 2.0L Cannula 03/27 1505 98.9 90 18 90/50 90 Nasal 2.0L Cannula Intake & Output 03/28 1600 03/28 0800 03/28 0000 Intake Total 185 560 Output Total Balance 185 560 Intake, IV 185 200 Intake, Oral 360 Assessment/Plan Assessment/Plan Impression 86 year old woman * partially loculated pleural effusion * community acquired pneumonia left side * a.fib on xarelto * ROBINSON improved * Delirium Plan -temp 99.7 overnight - borderline BP, leukocytosis resolved, wbc 10.1 -CXR today - portable given patient's condition -on ceftriaxone and zithromax -cont iv heparin - hold xarelto in anticipation of possible thoracentesis - thoracentesis was held yesterday due to a small effusion per IR - per medical record on 03/27/17 - Discussed in detail with multiple family members the status of the left sided loculated pleural effusion along with housestaff. Options such as thoracentesis was previously held which is reasonable as this would not address the other "pockets" of loculation. A chest tube/pigtail can be a consideration however we will continue to discuss how invasive of therapy we will pursue. Certainly a VATS would be very risky and not the next step at this time. We will continue to observe on antibiotics. Additionally in [address] scan showed an effusion on the left, leaving us to consider that the effusion that we are seeing is chronic and will have residual loculated fluid upon completion of therapy. DVT prophylaxis at all times Goals of care should be addressed - will await family Consult Acknowledgment - Thank you for your consult request.
[2017-03-28 13:56] VITALS: BP 112/60
--- NOTE | 2017-03-28 14:55 | Event Note ---
Event Note Event Note: rapid response alert called around 3:30 pm as the p.t desat to 86% and she spike fever of 101.3 F. on arrival she was aggravated and compulsive and she refused physical examination and blood tests, so we place a soft restraint temporary, her oxygen saturation improved above 91% on 40% Ventimask. we obtained stat CBC, BEP, troponin, lactic acid, chest x-ray, EKG, urinalysis and panculture. She received IV Tylenol. EKG showed a heart rate of 137 with no significant change compared with her previous EKG. We changes the Abx to fortaz and vanco IV. despite the p.t receiced IV tylenol the fever did not subside. Around 5 PM radiologist notify us about the results of the chest x-ray. Will contact Dr. Gomez and update him. We contact her family relative and we update them and requested from them to come to the hospital for further details and the need of consent for possible invasive procedure as the chest x-ray showed massive left pleural effusion comparing with yesterday chest x-ray. We explained for the family around 7 PM the current medical situation and the need for invasive surgical procedure, also we address with them the goal of care at that time. Patient family stated that they want couple of minutes to think about it in the meanwhile I received a call from the intervention radiologist and he stated that there is no urgency now to do the chest is to and that will be done tomorrow in the lockstitcher. I notified both the family member and Dr. Gomez. I had extensive discussion with the family regarding her current situation and the benefit of the chest tube placement, and the need to discuss her CODE STATUS giving the patient comorbidity and her advanced dementia and the possibility that she will need to restrain or sitter to prevent her from pulling out the chest tube. Around 7:30 PM patient was transferred to the ICU after discussion with Dr. Gomez, and explained for the family that she will be under 24 7 telemetry and oxygen saturation monitoring and if she deteriorates we'll consider emergent chest tube placement. ICU team discuss the CODE STATUS again with the patient's family and they agree to change her to DNI DNR for now.
[2017-03-28 15:50] LABS: ABSOLUTE BASOPHIL COUNT 0 /CUMM (0.0-0.2); ABSOLUTE EOSINOPHIL COUNT 0.1 /CUMM (0.0-0.7); ABSOLUTE GRANULOCYTE CT 8.6 /CUMM (1.4-6.5); ABSOLUTE LYMPH COUNT 1.1 /CUMM (1.2-3.4); ABSOLUTE MONOCYTE COUNT 1.4 /CUMM (0.10-0.60); BASOPHIL % 0.4 % (0.0-2.0); EOSINOPHIL % 1.1 % (0-5); GRANULOCYTE % 76.6 % (42.2-75.2); HEMATOCRIT 32.8 % (37-47); MEAN CORPUSCULAR HGB 32.1 PG (27.0-31.0); MEAN CORPUSCULAR HGB CONC 33.3 G/DL (33.0-37.0); MEAN CORPUSCULAR VOLUME 96.3 FL (81.0-99.0); MEAN PLATELET VOLUME 8.1 FL (7.4-10.4); PLATELET COUNT 299 /CUMM (130-400); RBC DISTRIBUTION WIDTH 14.7 % (11.5-14.5); RED BLOOD CELL CT 3.41 /CUMM (4.20-5.40); WHITE BLOOD CELL COUNT 11.2 /CUMM (4.8-10.8)
[2017-03-28 16:17] LABS: PTT 115 SEC (25-37)
--- NOTE | 2017-03-28 17:06 | RADIOLOGY REPORT ---
EXAMINATION: XR PORTABLE CHEST CLINICAL INFORMATION: Desaturating with large pleural effusion. COMPARISON: Chest radiograph 03/27/2017. TECHNIQUE: Portable frontal view of the chest was obtained. FINDINGS: There is complete opacification of the left hemithorax due to a large left pleural effusion. No aerated lung tissue is visualized. There is new mild rightward shift of the mediastinum. The right lung is clear. Cardiomediastinal silhouette is largely obscured due to the large left pleural effusion. The visualized cardiac silhouette and pulmonary vasculature are within normal limits. No acute osseous findings. IMPRESSION: Interval enlargement of a large left pleural effusion, now with complete opacification of the left hemithorax. This results in new, mild rightward shift of mediastinum. This critical result was discussed with Dr. Guardado at 5:02 PM on 03/28/2017 and it was ascertained that the content and urgency of the report was understood at the time of direct communication.
[2017-03-29 07:36] LABS: ABSOLUTE BASOPHIL COUNT 0 /CUMM (0.0-0.2); ABSOLUTE EOSINOPHIL COUNT 0.2 /CUMM (0.0-0.7); ABSOLUTE GRANULOCYTE CT 7.2 /CUMM (1.4-6.5); ABSOLUTE LYMPH COUNT 1.2 /CUMM (1.2-3.4); ABSOLUTE MONOCYTE COUNT 1.2 /CUMM (0.10-0.60); BASOPHIL % 0.3 % (0.0-2.0); EOSINOPHIL % 1.9 % (0-5); GRANULOCYTE % 72.8 % (42.2-75.2); HEMATOCRIT 34.5 % (37-47); MEAN CORPUSCULAR HGB 31.9 PG (27.0-31.0); MEAN CORPUSCULAR HGB CONC 33.2 G/DL (33.0-37.0); MEAN CORPUSCULAR VOLUME 96.1 FL (81.0-99.0); MEAN PLATELET VOLUME 8.1 FL (7.4-10.4); PLATELET COUNT 283 /CUMM (130-400); RED BLOOD CELL CT 3.59 /CUMM (4.20-5.40); WHITE BLOOD CELL COUNT 9.9 /CUMM (4.8-10.8)
--- NOTE | 2017-03-29 07:48 | Cons- CRCU ---
Leni BLAKELY,[facility] 03/29/17 0748: General Information and HPI Consulting Request Date of Consult: 03/29/17 Requested By: Dr Homero Latif Reason for Consult: Respiratory Distress secondary to large pleural effusion Source of Information: family Exam Limitations: dementia History of Present Illness: This is 86-year-old female with a history of advanced Alzheimer dementia, A. fib on Xeralto, peripheral artery disease, chronic diastolic heart failure, rheumatoid arthritis, diabetes mellitus who presented to [facility] with her family. The patient has dementia at baseline and is unable to provide any history. Most of the history was provided by her daughter who is her caregiver. Patient started having productive cough which has been increasingly worse over the past few days, it was associated with increasing weakness and confusion. The patient was noticed to be very combative on the morning of her admission to the ED. She is also reported to not having able to swallow her morning medications. She was previously on telemetry but transferred to ICU after rapid response was called around as the patient had a rapid desaturation to 86% and a fever spike of 101.3. She was transferred for continuous monitoring. Allergies/Medications Allergies: Coded Allergies: warfarin (From COUMADIN) (Severe, "THROAT CLOSED" PER FAMILY 03/24/17) Penicillins (UNKNOWN 03/24/17) amoxicillin (UNKNOWN 03/24/17) risperidone (From RISPERDAL) (UNKNOWN 03/24/17) codeine (Intermediate, DIARRHEA 03/24/17) dabigatran etexilate (From PRADAXA) (Intermediate, BLEEDING 03/24/17) enoxaparin (From LOVENOX) (Intermediate, STOMACH PAIN 03/24/17) haloperidol (From HALDOL) (Intermediate, DIARRHEA, RAPID HR 03/24/17) rivaroxaban (From XARELTO) (Intermediate, BLEEDING 03/24/17) aspirin (BLEEDING PER FAMILY 03/24/17) Home Med List: Calcitriol 0.25 MCG CAPSULE 1 CAP PO DAILY SUPPLEMENT (Reported) Diltiazem HCl (Diltiazem 24HR ER) 180 MG CAP.ER.24H 1 CAP PO DAILY HEART/BP ( Reported) Furosemide (Unknown Strength) TABLET (Unknown Dose) PO DAILY DIURETIC ( Reported) Linagliptin (Tradjenta) 5 MG TABLET 1 TAB PO DAILY DM (Reported) Lorazepam 0.5 MG TABLET 1 TAB PO AD PRN ANXIETY (Reported) Losartan Potassium 25 MG TABLET 1 TAB PO DAILY HEART/BP (Reported) Magnesium Hydroxide (Milk Of Magnesia) 400 MG/5 ML ORAL.SUSP 15 ML PO PRN GI (Reported) Magnesium Oxide (Magnesium) 400 MG CAPSULE 1 CAP PO EOD SUPPLEMENT (Reported) Metformin HCl 500 MG TABLET 1 TAB PO BID DM (Reported) Metoprolol Succinate 50 MG TAB.ER.24H 1 TAB PO QAM HEART/BP (Reported) Multivitamin (Daily Value) 1 EACH TABLET 1 TAB PO DAILY SUPPLEMENT (Reported) Prednisone 1 MG TABLET 2 TAB PO Wednesday STEROID (Reported) Prednisone 1 MG TABLET 3 TAB PO STEROID (Reported) Pyridoxine HCl (Vitamin B-6) 50 MG TABLET 1 TAB PO DAILY SUPPLEMENT (Reported ) Risedronate Sodium (Actonel) 35 MG TABLET 1 TAB PO QSUN OSTEOPOROSIS ( Reported) Rivaroxaban (Xarelto) 15 MG TABLET 1 TAB PO DAILY BLOOD THINNER (Reported) Sennosides/Docusate Sodium (Senna S Tablet) 8.6 MG-50 MG TABLET 1 TAB PO EOD GI (Reported) Simvastatin (Simvastatin*) 20 MG TABLET 1 TAB PO QPM CHOLESTEROL (Reported) Review of Systems Review of Systems Constitutional: Reports: no symptoms. 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 FH: lung cancer MOTHER FH: emphysema Psychosocial History Services at Home: Nursing Smoking Status: Unknown If Ever Smoked Functional Ability ADLs Needs Assist: dressing, eating, toileting, bathing. Ambulation: non-ambulatory IADLs Needs Assist: shopping, housework, finances, food prep, telephone, transportation, medication admin. Exam & Diagnostic Data Last 24 Hrs of Vital Signs/I&O Vital Signs Date Time Temp Pulse Resp B/P B/P Pulse O2 O2 Flow FiO2 Mean Ox Delivery Rate 03/29 1047 128 98/47 03/29 1000 122 78/58 03/29 0400 100 Nasal 4.0L Cannula 03/29 0000 Nasal 4.0L Cannula 03/28 1999 95 Nasal 5.0L Cannula Intake & Output 03/29 1600 03/29 0800 03/29 0000 Intake Total 236 40 Output Total Balance 236 40 Intake, IV 236 40 Intake, Oral 0 Number 0 Bowel Movements Physical Exam General Appearance: awake, mild distress Head: atraumatic, normal appearance Eyes: Bilateral: normal appearance, PERRL. Ears, Nose, Throat: normal pharynx, normal ENT inspection Neck: normal inspection Respiratory: normal breath sounds, chest non-tender Cardiovascular: irregularly irregular Gastrointestinal: soft, non-tender Extremities: bilateral lower extremity edema Neurologic/Psych: awake, alert, oriented x1 Last 48 Hrs of Labs/Raghu: Laboratory Tests 03/29/17 1240: Pleural pH 7.02 03/29/17 1240: Fluid WBC 846 H, Fld Mesothelial Cells , Fld Total RBCs Counted 613 H 03/29/17 1240: Lymphocytes 23, % Normal PMNs 60, Phlebotomy Draw Site LT PLEURAL, Fluid Glucose 57, Fluid Total Protein 3.0, Fluid Albumin 1.5, Fluid LDH 1724 03/29/17 0645: APTT 43 H, CBC w Diff NO MAN DIFF REQ, RBC 3.59 L, MCV 96.1, MCH 31.9 H, RDW 15.0 H, MPV 8.1, Gran % 72.8, Lymphocytes % 12.5 L, Monocytes % 12.5 H, Eosinophils % 1.9, Basophils % 0.3, Absolute Granulocytes 7.2 H, Absolute Lymphocytes 1.2, Absolute Monocytes 1.2 H, Absolute Eosinophils 0.2, Absolute Basophils 0, PUBS MCHC 33.2 03/29/17 0415: Anion Gap 9, Estimated GFR 52 L, Glucose 154 H, Calcium 9.1, Phosphorus 2.2 L , Magnesium 2.0, Total Bilirubin 0.4, AST 62 H, ALT 115 H, Lactate Dehydrogenase 447, Albumin 2.5 L 03/28/17 1517: Lactic Acid 1.2, Troponin I 0.03 03/28/17 1517: Anion Gap 10, Estimated GFR 52 L, BUN/Creatinine Ratio 36.0 H, APTT 115 *H, CBC w Diff NO MAN DIFF REQ, RBC 3.41 L, MCV 96.3, MCH 32.1 H, RDW 14.7 H, MPV 8.1, Gran % 76.6 H, Lymphocytes % 9.7 L, Monocytes % 12.2 H, Eosinophils % 1.1, Basophils % 0.4, Absolute Granulocytes 8.6 H, Absolute Lymphocytes 1.1 L, Absolute Monocytes 1.4 H, Absolute Eosinophils 0.1, Absolute Basophils 0, PUBS MCHC 33.3 03/28/17 0830: Anion Gap 14, Estimated GFR 52 L, BUN/Creatinine Ratio 36.0 H, APTT 43 H, CBC w Diff NO MAN DIFF REQ, RBC 3.53 L, MCV 96.2, MCH 32.3 H, RDW 15.1 H, MPV 8.5 , Gran % 78.0 H, Lymphocytes % 10.2 L, Monocytes % 10.4 H, Eosinophils % 1.2, Basophils % 0.2, Absolute Granulocytes 7.9 H, Absolute Lymphocytes 1.0 L, Absolute Monocytes 1.1 H, Absolute Eosinophils 0.1, Absolute Basophils 0, PUBS MCHC 33.5 03/27/17 1853: APTT 81 H Assessment/Plan Impression/Plan: 86 y old female with a PMH of dementia, A. fib on Xeralto, peripheral artery disease, chronic diastolic heart failure, rheumatoid arthritis, diabetes mellitus who presents to [facility] with her family very confused and not able to provide history. Problem List: 1. Partially loculated pleural effusion 2. Community-acquired pneumonia 3. Acute kidney injury 4. Delirium Partially loculated Pleural Effusion and Commity Acquired Pneumonia: The patient came in with productive cough, confusion, and shortness of breath. She was found to have a moderate to large partially loculated pleural effusion on her initial CT scan. There was also consolidation at left lower lobe. It was initally planned to drain her loculated effusion on March 26. However, radiology called before the procedure and thought that the effusion was smaller than initially indicated. They decided not to drain at that time. Repeat CXR on 03/27 showed [id number] left-sided pleural effusion with underlying collapse consolidation of left lower lobe. She was maintained on ceftriaxone and azithromycin on telemetry floor. She was switched to Vanc and Ceftaz after being transferred to ICU. * Continue ICU monitoring. * Continue IV Vancomycin and Ceftazidime for CAP. * Her Leukocytosis has resolved. * Will follow up blood cultures. * She had a diagnostic/therapeutic thoracentesis today. * Will follow up pleural studies. Hypotension/Atrial Fibrilliation: She has been persistently hypotensive for the past couple of days. * One time dose of IV dignoxin 0.5mg was given this morning as she has been persistently tachy overnight. * Will continue to hold antihypertensives, Cardizem and metoprolol. * Will restart as blood pressure tolerates. * Xarelto was restarted today after thoracentesis. * Last Echo 03/24 showed normal left ventricular systolic function of 60-65% with mild concentric hypertrophy Acute kidney injury: Patient presented with creatinine 1.4. Was likely prerenal azotemia in the setting of infection and dehydration. * Cr is back to baseline of 1.0 * Will hold ACEi and Furosemide in the context of hypotenion. Constipation: Abdominal x-ray 03/25 showed moderate amount of stool. Last bowel movement was * Continue bisocodyl and senna as needed. History of Hyperlipidemia: * Continue home atorvastatin DVT prophylaxis with Xarelto Heart healthy diet, puree, nectar thick Full code Consult Acknowledgment - Thank you for your consult request. Patricia BLAKELY,Ren[facility] 03/29/17 1002: Assessment/Plan Other Findings/Comments: Impression 86 year old woman * partially loculated pleural effusion -significantly enlarged with mediastinal shift * community acquired pneumonia left side * a.fib on xarelto * ROBINSON improved * Delirium Plan -IR to place pigtail catheter -heparin held for procedure (xarelto held) -CXR today - portable given patient's condition -abx broadended to vanco, ceftazadime -ensure ph, cytology, microbiology, cell count, ldh, t.protein, t. cholesterol is sent on pleural fluid Discussed in detail with multiple family members the status of the left sided loculated pleural effusion along with housestaff. DVT prophylaxis at all times Now she is DNR/DNI Consult Acknowledgment - Thank you for your consult request.
--- NOTE | 2017-03-29 07:56 | Transfer of Care Summary ---
Hospital Course Course Hospital Course: 86 y old female with a PMH of dementia, A. fib on Xeralto, peripheral artery disease, chronic diastolic heart failure, rheumatoid arthritis, diabetes mellitus who presents to [place] ED with her family very confused and not able to provide history. Labs on admission were significant for leukocytosis with WBC 12.9 with left shift, normal H&H, normal platelet count of 288, ABG showed pH is 7.47, PCO2 39, PO2 73, BEP: Sodium 142, potassium 4.4, BUN 34, creatinine 1.4, glucose 149, PT 1.56 Urinalysis only showed few bacteria Chest x-ray: Dense consolidation left lung base of left basilar infiltrate or atelectasis and probable left effusion. Chest CT: Loss left hemithorax with atelectasis and consolidation at left lower lobe. Moderate to large volume left pleural effusion which appears partially loculated. She was admitted to telemetry and treated for the following problems: 1. Partially loculated pleural effusion 2. Community-acquired pneumonia 3. Acute kidney injury 4. Delirium #Partially loculated pleural effusion: The patient presented with productive cough, confusion, and shortness of breath. She was found to have a moderate to large partially loculated pleural effusion on CT scan. Pulmonology consult was placed on March 25. We had planned to drain her loculated effusion on March 26. However, radiology called before the procedure and thought that the effusion was smaller than initially indicated. They decided not to drain at that time. She was maintained on ceftriaxone and azithromycin with improving leukocytosis. She did have several low-grade fevers but nothing grew on cultures. TTE showed EF 60-65% and RV pressure 35 mmHg. -Appreciate pulmonology recommendations -Appreciate cardiology recommendations -Continue ceftriaxone and azithromycin -Holding rivaroxaban. IV heparin -Follow cultures #Acute kidney injury: Patient presented with creatinine 1.4. Baseline is 1.0. Likely prerenal azotemia in the setting of infection. Her GASTON inhibitor and furosemide were held. Nephrotoxic medications were avoided. -Avoid nephrotoxic medications -Holding GASTON inhibitor and furosemide #Constipation: Abdominal x-ray showed moderate amount of stool. Last bowel movement was March 22 -Bisacodyl when necessary -Senna when necessary #Delirium: Patient was initially thought to be delirious. After talking with the family, it seems like her baseline is somewhat confused and not talking much. -Delirium protocols #Chronic medical problems: -Continue home atorvastatin, metoprolol, diltiazem DVT prophylaxis with IV heparin until drainage Heart healthy diet, puree, nectar thick Full code Assessment/Plan: See above
[2017-03-29 08:00] VITALS: BP 110/70
[2017-03-29 08:14] LABS: PTT 43 SEC (25-37)
--- NOTE | 2017-03-29 12:25 | PN- Cardiology ---
Subjective Subjective: Somnolent. Blood pressure has been borderline and she is noted to have some tachycardia as well on telemetry. Objective Vital Signs and I&Os Vital Signs Date Time Temp Pulse Resp B/P B/P Pulse O2 O2 Flow FiO2 Mean Ox Delivery Rate 03/29 1047 128 98/47 03/29 1000 122 78/58 03/29 0400 100 Nasal 4.0L Cannula 03/29 0000 Nasal 4.0L Cannula 03/28 2000 95 Nasal 5.0L Cannula 03/28 1356 98.0 94 20 112/60 93 Nasal 3.0L Cannula Intake & Output 03/29 1600 03/29 0800 03/29 0000 03/28 1600 03/28 0800 03/28 0000 Intake Total 236 40 358 185 560 Output Total 150 Balance 236 40 208 185 560 Intake, IV 236 40 108 185 200 Intake, Oral 0 250 360 Number 0 Bowel Movements Output, Urine 150 Physical Exam: General: Somnolent Eyes: No obvious scleral icterus. HEENT: No jugular venous distention or abnormal jugular venous pulsations. Cardiovascular: Normal intensity S1/S2. Irregular tachycardia Respiratory: Decreased air entry on the left Abdomen: Soft Skin: Warm Current Medications: Current Medications Sig/Julio Start time Last Medication Dose Route Stop Time Status Admin Acetaminophen 1,000 MG .STK-MED ONE 03/28 1441 DC IV 03/28 1442 Acetaminophen 1,000 MG Q6P PRN 03/24 1945 03/27 IV 0646 Albuterol Sulfate 3 ML Q4-PRN PRN 03/28 2345 AC INH Albuterol Sulfate 3 ML BID 03/25 1000 DC 03/27 INH 2231 Atorvastatin Calcium 10 MG 1700 03/25 1700 AC 03/27 PO 1734 Azithromycin 500 MG DAILY@03/26 DC 03/27 Dextrose/Water 250 ML IV 2135 Bisacodyl 5 MG DAILY NEEDED PRN 03/26 0745 03/26 PO 0955 Bisacodyl 10 MG DAILY NEEDED PRN 03/26 0745 03/26 MS 1759 Ceftazidime 1,000 MG Q12H 03/28 1600 AC 03/29 IV 0504 Ceftriaxone Sodium 1,000 MG DAILY@03/25 DC 03/27 IV 2135 Digoxin 0.5 MG ONCE ONE 03/29 1015 DC 03/29 IV 03/29 1016 1047 Diltiazem HCl 180 MG DAILY 03/25 1000 AC 03/26 PO 0955 Fentanyl Citrate 0 .STK-MED ONE 03/29 1213 DC .ROUTE Heparin Sodium 25,000 UNIT Q24H 03/26 1330 DC 03/28 (Porcine) IV 2207 Sodium Chloride 500 ML Insulin Aspart 0 TIDAC 03/25 1700 AC 03/28 SC 0845 Metoprolol Succinate 50 MG QAM 03/25 1000 AC 03/26 PO 0955 Naloxone HCl 0 .STK-MED ONE 03/29 1213 DC .ROUTE Potassium Chloride 10 MEQ ONCE ONE 03/29 0945 DC 03/29 IV 03/29 0946 1048 Potassium Phosphate 15 mMol ONE ONE 03/29 0945 AC 03/29 Sodium Chloride 250 ML IV 03/29 1349 1048 Prednisone 2.5 MG DAILY 03/26 1649 AC 03/28 PO 0845 Senna/Docusate Sodium 2 TAB DAILY PRN 03/25 1815 AC 03/26 PO 0955 Sodium Chloride 500 ML BOLUS ONE 03/29 1130 CAN IV 03/29 1229 Sodium Chloride 500 ML BOLUS ONE 03/29 0915 DC 03/29 IV 03/29 1014 0910 Sodium Chloride 1,000 ML Q20H 03/29 0915 AC 03/29 IV 1015 Vancomycin HCl 1,000 MG DAILY@1700 03/28 1700 AC 03/28 Dextrose/Water 250 ML IV 1752 Results Last 48 Hrs of Labs/Mics: Laboratory Tests 03/29/17 0645: APTT 43 H, CBC w Diff NO MAN DIFF REQ, RBC 3.59 L, MCV 96.1, MCH 31.9 H, RDW 15.0 H, MPV 8.1, Gran % 72.8, Lymphocytes % 12.5 L, Monocytes % 12.5 H, Eosinophils % 1.9, Basophils % 0.3, Absolute Granulocytes 7.2 H, Absolute Lymphocytes 1.2, Absolute Monocytes 1.2 H, Absolute Eosinophils 0.2, Absolute Basophils 0, PUBS MCHC 33.2 03/29/17 0415: Anion Gap 9, Estimated GFR 52 L, Glucose 154 H, Calcium 9.1, Phosphorus 2.2 L , Magnesium 2.0, Total Bilirubin 0.4, AST 62 H, ALT 115 H, Lactate Dehydrogenase 447, Albumin 2.5 L 03/28/17 1517: Lactic Acid 1.2, Troponin I 0.03 03/28/17 1517: Anion Gap 10, Estimated GFR 52 L, BUN/Creatinine Ratio 36.0 H, APTT 115 *H, CBC w Diff NO MAN DIFF REQ, RBC 3.41 L, MCV 96.3, MCH 32.1 H, RDW 14.7 H, MPV 8.1, Gran % 76.6 H, Lymphocytes % 9.7 L, Monocytes % 12.2 H, Eosinophils % 1.1, Basophils % 0.4, Absolute Granulocytes 8.6 H, Absolute Lymphocytes 1.1 L, Absolute Monocytes 1.4 H, Absolute Eosinophils 0.1, Absolute Basophils 0, PUBS MCHC 33.3 03/28/17 0830: Anion Gap 14, Estimated GFR 52 L, BUN/Creatinine Ratio 36.0 H, APTT 43 H, CBC w Diff NO MAN DIFF REQ, RBC 3.53 L, MCV 96.2, MCH 32.3 H, RDW 15.1 H, MPV 8.5 , Gran % 78.0 H, Lymphocytes % 10.2 L, Monocytes % 10.4 H, Eosinophils % 1.2, Basophils % 0.2, Absolute Granulocytes 7.9 H, Absolute Lymphocytes 1.0 L, Absolute Monocytes 1.1 H, Absolute Eosinophils 0.1, Absolute Basophils 0, PUBS MCHC 33.5 03/27/17 1853: APTT 81 H Recent Imaging Studies: Telemetry tracings were personally reviewed and show atrial fibrillation with rapid ventricular response rate Assessment/Plan Assessment/Plan #1 Community acquired pneumonia in the left lower lobe and partially loculated left pleural effusion. #2. Atrial fibrillation persisted and chronic rate control strategy #3. On oral anticoagulation with Xarelto #4. Dementia #5. History of pulmonary embolism and deep vein thrombosis #6. Chronic diastolic congestive heart failure. No acute CHF at this time #7. Left bundle branch block #8. Hypertension #9. 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 Diabetes mellitus #11. Rheumatoid arthritis Patient is apparently planned for IR placement of a pigtail catheter; Xarelto has been on hold for this procedure and she was being bridged with IV heparin. She remains on intravenous antibiotics. Her blood pressure has been unable to tolerate the Cardizem/metoprolol and I recommended a dose of digoxin 0.5 mg times one today for additional heart rate control. She remains on intravenous antibiotics. Condition is guarded. Neftali Duggan MD [facility] Continue telemetry? Yes
[2017-03-29 16:00] VITALS: BP 102/62
--- NOTE | 2017-03-29 16:32 | ULTRASOUND REPORT ---
PROCEDURE: Ultrasound-guided chest tube placement. INDICATION: Left pleural effusion. SPECIMEN: Culture ACCESS: 5 Fr. Yueh Needle COMPARISON: Chest CT 03/24/2017 and several prior chest x-rays, the most recent 03/28/2017 INTERVENTIONAL RADIOLOGIST: Rajendra Munroe MD CONSENT: Informed consent was obtained from the patient's daughter prior to the procedure. During this process, the procedure and potential alternatives were explained along with the intended outcome and benefits. The risks of the procedure, including the possibility of an unsuccessful procedure as well as the risk of not doing the procedure were discussed. The patient's daughter was given the opportunity to ask any questions regarding the procedure and appeared competent to make medical decisions. A signed consent form which documents this discussion was placed in the medical record. MEDICATIONS: -10ml 1% lidocaine subcutaneously. -50 mcg fentanyl intravenously. TECHNIQUE/FINDINGS: Appropriate pre-procedure medical history and imaging studies were reviewed. The patient was brought to the ultrasound department and placed in a semi right side down decubitus position. A timeout procedure was performed. Ultrasound images of the left thorax were obtained to localize a large loculated pleural effusion. Images were permanently saved to the record. An area of the patient's left back was prepped and draped in the standard sterile fashion. 10 mL of 1% lidocaine was used to obtain local anesthesia of the skin and deeper tissues. A standard small bore needle was introduced to sample fluid and demonstrated a safe access route. A 5 Nepali Yueh needle was then used to access the pleural cavity. Ultrasound imaging confirmed optimal positioning. A guidewire was then placed through the introducer into the chest. The access site was then sequentially dilated using dilators sized 8 Fr, 10 Fr and 12 Fr. A 12 Fr. nonlocking catheter was then advanced over the wire into the chest cavity. The wire was removed and the catheter was secured to the skin with a single suture and a sterile dressing was placed over the site. The catheter was then connected to a closed chest drainage system. The patient tolerated the procedure well without evidence of complications. Sample sent to laboratory for requested analysis. IMPRESSION: Successful left ultrasound-guided chest tube placement. Approximately 500 mL thin yellow fluid was drained before the patient was transported back up to her room. PLAN: Chest tube will be monitored by the ICU/pulmonary team.
[2017-03-29 22:00] VITALS: BP 102/46
[2017-03-30 04:46] LABS: ABSOLUTE BASOPHIL COUNT 0 /CUMM (0.0-0.2); ABSOLUTE EOSINOPHIL COUNT 0.2 /CUMM (0.0-0.7); ABSOLUTE GRANULOCYTE CT 7.3 /CUMM (1.4-6.5); ABSOLUTE MONOCYTE COUNT 1.1 /CUMM (0.10-0.60); WHITE BLOOD CELL COUNT 9.6 /CUMM (4.8-10.8)
[2017-03-30 05:03] LABS: BASOPHIL % 0.2 % (0.0-2.0); EOSINOPHIL % 1.9 % (0-5); GRANULOCYTE % 76.7 % (42.2-75.2); MEAN CORPUSCULAR HGB 31.5 PG (27.0-31.0); MEAN CORPUSCULAR HGB CONC 33.3 G/DL (33.0-37.0); MEAN CORPUSCULAR VOLUME 94.8 FL (81.0-99.0); MEAN PLATELET VOLUME 7.6 FL (7.4-10.4); PLATELET COUNT 285 /CUMM (130-400); RBC DISTRIBUTION WIDTH 14.7 % (11.5-14.5); RED BLOOD CELL CT 3.04 /CUMM (4.20-5.40)
[2017-03-30 05:11] LABS: HEMATOCRIT 28.8 % (37-47)
[2017-03-30 06:41] VITALS: BP 11/50; BP 111/50
--- NOTE | 2017-03-30 07:35 | PN- Resident CRCU ---
Leni BLAKELY,[facility] 03/30/17 0734: Subjective HPI/CRCU Issues: Respiratory Distress secondary to large pleural effusion Hypotension Atrial Fibrilliation 24 Hour Events: No acute events overnight. Her chest tube had 0 output overnight but 200cc in the past 24 hours since placement of her pleurx. Repeat CXR from this morning does not show any improvement. Objective Vital Signs & I&O Last 8 Hrs of Vitals and I&O: . 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 Cranial Nerves: normal hearing, normal speech Skin: normal color Skin Temp/Moisture Exam: Warm/Dry Sepsis Skin Exam (color): Normal for Ethnicity Current Medications: Current Medications Sig/Julio Start time Last Medication Dose Route Stop Time Status Admin Acetaminophen 1,000 MG Q6P PRN 03/24 1945 AC 03/27 IV 0646 Albuterol Sulfate 3 ML Q4-PRN PRN 03/28 2345 AC INH Atorvastatin Calcium 10 MG 1700 03/25 1700 AC 03/29 PO 1833 Bisacodyl 5 MG DAILY NEEDED PRN 03/26 0745 AC 03/26 PO 0955 Bisacodyl 10 MG DAILY NEEDED PRN 03/26 0745 AC 03/26 ME 1759 Ceftazidime 1,000 MG Q12H 03/28 1600 AC 03/30 IV 0410 Diltiazem HCl 30 MG Q8 03/30 1400 AC PO Diltiazem HCl 15 MG ONCE ONE 03/30 0930 DC PO 03/30 0931 Diltiazem HCl 180 MG DAILY 03/25 1000 DC 03/26 PO 0955 Insulin Aspart 0 TIDAC 03/25 1700 AC 03/28 SC 0845 Metoprolol Succinate 50 MG QAM 03/25 1000 DC 03/26 PO 0955 Potassium Phosphate 15 mMol ONE ONE 03/29 0945 DC 03/29 Sodium Chloride 250 ML IV 03/29 1349 1048 Prednisone 2.5 MG DAILY 03/26 1649 AC 03/29 PO 1524 Rivaroxaban 15 MG 1700 03/29 1700 AC 03/29 PO 1833 Senna/Docusate Sodium 2 TAB DAILY PRN 03/25 1815 AC 03/26 PO 0955 Sodium Chloride 1,000 ML BOLUS ONE 03/29 2115 DC 03/29 IV 03/29 2314 2124 Sodium Chloride 1,000 ML Q20H 03/29 0915 AC 03/30 IV 0410 Vancomycin HCl 1,000 MG DAILY@1700 03/28 1700 AC 03/29 Dextrose/Water 250 ML IV 1702 Impression/Plan Impression/Problem List Impression: 86 y old female with a PMH of dementia, A. fib on Xeralto, peripheral artery disease, chronic diastolic heart failure, rheumatoid arthritis, diabetes mellitus who presents to [facility] ED with her family very confused and not able to provide history. Problem List: 1. Partially loculated pleural effusion 2. Community-acquired pneumonia 3. Acute kidney injury 4. Delirium Partially loculated Pleural Effusion and Commity Acquired Pneumonia: The patient came in with productive cough, confusion, and shortness of breath. She was found to have a moderate to large partially loculated pleural effusion on her initial CT scan. There was also consolidation at left lower lobe. It was initally planned to drain her loculated effusion on March 26. However, radiology called before the procedure and thought that the effusion was smaller than initially indicated. They decided not to drain at that time. Repeat CXR on 03/27 showed [id number] left-sided pleural effusion with underlying collapse consolidation of left lower lobe. She was maintained on ceftriaxone and azithromycin on telemetry floor. She was switched to Vanc and Ceftaz after being transferred to ICU. * Continue ICU monitoring. * Continue IV Vancomycin and Ceftazidime for CAP. * Her Leukocytosis has resolved. * Will follow up blood cultures. * She had a diagnostic/therapeutic thoracentesis 03/29 with placement of pleurx catheter. * Will follow up pleural studies. * CXR today showed no significant improvement. Will pursue a CAT scan. She may required tPA to drain her pleural effusion. If so, Xarelto will have to be put on hold. Hypotension/Atrial Fibrilliation: She has been persistently hypotensive for the past couple of days. * One time dose of IV dignoxin 0.5mg was given yesterday as she has been persistently tachy. * Digoxin prn if needed to control heart rate. * Will discontinue Cardizem CD and metoprolol. * Will start her on Cardizem 30mg q8. * Xarelto was restarted yesterday. May have to be put on hold if tPA is indicated. * Last Echo 03/24 showed normal left ventricular systolic function of 60-65% with mild concentric hypertrophy Acute kidney injury: Patient presented with creatinine 1.4. Was likely prerenal azotemia in the setting of infection and dehydration. * Cr is back to baseline of 1.0 * Will hold ACEi and Furosemide in the context of hypotenion. History of Hyperlipidemia: * Continue home atorvastatin DVT prophylaxis with Xarelto Heart healthy diet puree, nectar thick Full code Problem List: 1. Atrial fibrillation Pain Ratin Tomorrow's Labs & Rationales: CBC, ICU bundle Plan DVT/Prophylaxis: mechanical, pharmacological Renato Gomez MD 03/30/17 1056: Attending MD Review Statement Attending Sign Off Attending Cosign Statement: I have: examined this patient, [facility], personally reviewd images, discussd w/resident/PA/[employer]SM[employer], discussed mgmt plan w/eldon, discussed mgmt plan w/CM, discussed mgmt plan w/pt, agreed w/resident/PA/[employer]SM[employer], amended to note. Other Findings: Impression 86 year old woman * partially loculated pleural effusion -significantly enlarged with mediastinal shift * community acquired pneumonia left side * a.fib on xarelto * ROBINSON improved * Delirium Plan -s/p pigtail catheter, stopped draining -cxr today to determine if need for ct chest, if fluid remains may require lytics -abx broadended to vanco, ceftazadime -f/u pleural studies DVT prophylaxis at all times DNR/DNI
--- NOTE | 2017-03-30 09:24 | PN- Cardiology ---
Subjective Subjective: Patient is lethargic but seems to be resting comfortably. Review of Systems: Unobtainable Objective Vital Signs and I&Os Vital Signs Date Time Temp Pulse Resp B/P B/P Pulse O2 O2 Flow FiO2 Mean Ox Delivery Rate 03/30 0818 98 Nasal 2.0L Cannula 03/30 0641 98.4 112 26 111/50 98 Nasal 2.0L Cannula 03/30 0400 98 Nasal 2.0L Cannula 03/30 0000 98 Nasal 2.0L Cannula 03/29 2200 98.6 104 23 102/46 98 Nasal 2.0L Cannula 03/29 2000 94 Nasal 2.0L Cannula 03/29 1946 94 Nasal 2.0L Cannula 03/29 1600 94 Nasal 2.0L Cannula 03/29 1600 97.6 104 21 102/62 94 Nasal 2.0L Cannula 03/29 1047 128 98/47 03/29 1000 122 78/58 Intake & Output 03/30 1600 03/30 0800 03/30 0000 03/29 1600 03/29 0800 03/29 0000 Intake Total 479 572 3747 236 40 Output Total 10 525 Balance 390 -165 1085 236 40 Intake, IV 571 660 8114 236 40 Intake, Oral 0 60 0 Number 0 Bowel Movements Output, Urine 10 525 Physical Exam: Patient is a well-developed well-nourished female appearing in no acute distress HEENT is unremarkable Neck is supple there is no JVD Lungs are clear Heart irregular rhythm S1 and S2 are normal no murmurs gallops or rubs Abdomen bowel sounds positive Extremities without edema Current Medications: Current Medications Sig/Julio Start time Last Medication Dose Route Stop Time Status Admin Acetaminophen 1,000 MG Q6P PRN 03/24 1945 AC 03/27 IV 0646 Albuterol Sulfate 3 ML Q4-PRN PRN 03/28 2345 AC INH Atorvastatin Calcium 10 MG 1700 03/25 1700 AC 03/29 PO 1833 Bisacodyl 5 MG DAILY NEEDED PRN 03/26 0745 AC 03/26 PO 0955 Bisacodyl 10 MG DAILY NEEDED PRN 03/26 0745 AC 03/26 ME 1759 Ceftazidime 1,000 MG Q12H 03/28 1600 AC 03/30 IV 0410 Digoxin 0.5 MG ONCE ONE 03/29 1015 DC 03/29 IV 03/29 1016 1047 Diltiazem HCl 180 MG DAILY 03/25 1000 AC 03/26 PO 0955 Fentanyl Citrate 0 .STK-MED ONE 03/29 1213 DC .ROUTE Insulin Aspart 0 TIDAC 03/25 1700 AC 03/28 SC 0845 Metoprolol Succinate 50 MG QAM 03/25 1000 AC 03/26 PO 0955 Naloxone HCl 0 .STK-MED ONE 03/29 1213 DC .ROUTE Potassium Chloride 10 MEQ ONCE ONE 03/29 0945 DC 03/29 IV 03/29 0946 1048 Potassium Phosphate 15 mMol ONE ONE 03/29 0945 DC 03/29 Sodium Chloride 250 ML IV 03/29 1349 1048 Prednisone 2.5 MG DAILY 03/26 1649 AC 03/29 PO 1524 Rivaroxaban 15 MG 1700 03/29 1700 AC 03/29 PO 1833 Senna/Docusate Sodium 2 TAB DAILY PRN 03/25 1815 AC 03/26 PO 0955 Sodium Chloride 1,000 ML BOLUS ONE 03/29 2115 DC 03/29 IV 03/29 2314 2124 Sodium Chloride 500 ML BOLUS ONE 03/29 1130 CAN IV 03/29 1229 Sodium Chloride 500 ML BOLUS ONE 03/29 0915 DC 03/29 IV 03/29 1014 0910 Sodium Chloride 1,000 ML Q20H 03/29 0915 AC 03/30 IV 0410 Vancomycin HCl 1,000 MG DAILY@1700 03/28 1700 AC 03/29 Dextrose/Water 250 ML IV 1702 Results Last 48 Hrs of Labs/Mics: Laboratory Tests 03/30/17 0424: Anion Gap 10, Estimated GFR > 60, Glucose 128 H, Calcium 7.9 L, Phosphorus 2.2 L, Magnesium 1.8, Total Bilirubin 0.3, AST 80 H, ALT 117 H, Albumin 2.1 L, CBC w Diff NO MAN DIFF REQ, RBC 3.04 L, MCV 94.8, MCH 31.5 H, RDW 14.7 H, MPV 7.6, Gran % 76.7 H, Lymphocytes % 10.1 L, Monocytes % 11.1 H, Eosinophils % 1.9, Basophils % 0.2, Absolute Granulocytes 7.3 H, Absolute Lymphocytes 1.0 L, Absolute Monocytes 1.1 H, Absolute Eosinophils 0.2, Absolute Basophils 0, PUBS MCHC 33.3 03/29/17 1240: Pleural pH 7.02 03/29/17 1240: Fluid WBC 846 H, Fld Mesothelial Cells , Fld Total RBCs Counted 613 H 03/29/17 1240: Lymphocytes 23, % Normal PMNs 60, Phlebotomy Draw Site LT PLEURAL, Fluid Glucose 57, Fluid Total Protein 3.0, Fluid Albumin 1.5, Fluid LDH 1724 03/29/17 0645: APTT 43 H, CBC w Diff NO MAN DIFF REQ, RBC 3.59 L, MCV 96.1, MCH 31.9 H, RDW 15.0 H, MPV 8.1, Gran % 72.8, Lymphocytes % 12.5 L, Monocytes % 12.5 H, Eosinophils % 1.9, Basophils % 0.3, Absolute Granulocytes 7.2 H, Absolute Lymphocytes 1.2, Absolute Monocytes 1.2 H, Absolute Eosinophils 0.2, Absolute Basophils 0, PUBS MCHC 33.2 03/29/17 0415: Anion Gap 9, Estimated GFR 52 L, Glucose 154 H, Calcium 9.1, Phosphorus 2.2 L , Magnesium 2.0, Total Bilirubin 0.4, AST 62 H, ALT 115 H, Lactate Dehydrogenase 447, Albumin 2.5 L 03/28/17 1517: Lactic Acid 1.2, Troponin I 0.03 03/28/17 1517: Anion Gap 10, Estimated GFR 52 L, BUN/Creatinine Ratio 36.0 H, APTT 115 *H, CBC w Diff NO MAN DIFF REQ, RBC 3.41 L, MCV 96.3, MCH 32.1 H, RDW 14.7 H, MPV 8.1, Gran % 76.6 H, Lymphocytes % 9.7 L, Monocytes % 12.2 H, Eosinophils % 1.1, Basophils % 0.4, Absolute Granulocytes 8.6 H, Absolute Lymphocytes 1.1 L, Absolute Monocytes 1.4 H, Absolute Eosinophils 0.1, Absolute Basophils 0, PUBS MCHC 33.3 Microbiology 03/28 2029 UPPER RESP: Surveillance Culture - COMP 03/28 2029 GI: Surveillance Culture - COMP Telemetry personally reviewed atrial fibrillation with overall heart rate in the low 100s Assessment/Plan Assessment/Plan 1 Community acquired pneumonia in the left lower lobe and partially loculated left pleural effusion. 2. Atrial fibrillation persisted and chronic rate control strategy 3. On oral anticoagulation with Xarelto 4. Dementia 5. History of pulmonary embolism and deep vein thrombosis 6. Chronic diastolic congestive heart failure. No acute CHF at this time 7. Left bundle branch block 8. Hypertension 9. 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 Diabetes mellitus 11. Rheumatoid arthritis Conditions 1. Pigtail catheter has been placed therefore Xarelto has been resumed for stroke prevention and atrial fibrillation 2. Continue antibiotics 3. In reviewing her medication she has not received either metoprolol or diltiazem since March 26 due to borderline hypotension. As discussed with the residents I would discontinue both long acting diltiazem and metoprolol and initiate diltiazem 30 mg by mouth every 8 hours. Would continue to use digoxin as needed for rate control. 4. Overall prognosis is poor Continue telemetry? Yes
--- NOTE | 2017-03-30 10:46 | RADIOLOGY REPORT ---
EXAMINATION: XR PORTABLE CHEST CLINICAL INFORMATION: Status post pleural effusion drainage, compared to prior studies. COMPARISON: Portable chest x-ray dated 03/28/2017 at 3:06 PM. TECHNIQUE: Portable frontal view of the chest was obtained. FINDINGS: There is interval placement of a chest tube which currently projects over the left lung base, medial aspect. Again noted is the opacification of the left hemithorax with potential interval development of a tiny focal area of aeration in the central portion of the left hemithorax. No significant aeration of the left hemithorax is present. The overall appearance of the right hemithorax is unchanged, with no focal areas of airspace opacification. Mild blunting of the right costophrenic angle is again noted. There is prominence of the pulmonary interstitial markings which likely represents pulmonary vascular congestion. IMPRESSION: No significant aeration of the left hemithorax.
--- NOTE | 2017-03-30 15:13 | CT SCAN REPORT ---
EXAMINATION: CT CHEST WITHOUT CONTRAST CLINICAL INFORMATION: Shortness of breath. Pleural effusion status post Pleurx catheter placement. COMPARISON: CXR from 03/24/2017 and 03/30/2017. Chest CT from 03/24/2017. TECHNIQUE: Multidetector volumetric CT imaging of the chest was performed. Axial MIP volume rendering provided. Sagittal and coronal reformatted images were obtained. DLP: 239 mGy-cm FINDINGS: LUNGS AND PLEURA: Images through the chest are partially degraded by respiratory motion. Compared to 03/24/2017, interval development of a small posteriorly layering right pleural effusion with compressive atelectasis in the dependent aspect of the right lower lobe. Persistent secretions fill the left mainstem bronchus and there is mucus plugging of bronchi to the left upper and left lower lobes. The left lung is collapsed and surrounded by a moderate-to large, apparently loculated effusion which has increased in size compared to 03/24/2017. The pleural drainage catheter is located in the base of the left hemithorax and there are scattered foci of gas within the pleural space after introduction of the catheter. MEDIASTINUM: Cardiomegaly with dilated left atrium, calcified mitral valve annulus, and [id number] three-vessel coronary artery atherosclerotic calcification. There is atherosclerotic calcification of the thoracic aorta without aneurysm. Small pericardial effusion is unchanged. The esophagus and thyroid gland are grossly unremarkable. LYMPHATICS: No axillary or internal mammary lymphadenopathy. No bulky hilar lymphadenopathy is detected on this noncontrast examination. The mediastinal lymph nodes remain < 1 cm in short axis dimension. UPPER ABDOMEN: The relatively high level of noise on images acquired through the upper abdomen; patient's arms are positioned at the sides. 1.1 cm cortical cyst at the upper pole of the right kidney (and probable adjacent 1 cm cortical cyst, as well). Atherosclerotic calcifications of the visualized abdominal aorta and splenic artery. SKELETAL/CHEST WALL: Multilevel discovertebral degenerative change of the visualized cervical and thoracolumbar spine. There is hyperkyphosis of the degenerated spine and chronic, mild height loss of the T11 vertebral body. Chronic, severe osteoarthritis of glenohumeral joints. IMPRESSION: - Compared to 03/24/2017, this persistent mucus plugging of left lung bronchi with interval development of complete collapse of the left lung which is surrounded by a [id number] loculated appearing pleural effusion. This could represent a parapneumonic effusion. The drainage catheter is positioned within the pleural space at the base of the hemithorax. - Small right pleural effusion and atelectasis in posterior right lower lobe. - Cardiomegaly and atherosclerotic disease of coronary arteries.
--- NOTE | 2017-03-30 15:57 | Event Note ---
Event Note Event Note: Family meeting held. Discussed CT findings with daughter Erin. Pigtail slightly pulled out by IR. Discussed goals of care. She is DNR/DNI. She has significant atelectasis, pleural effusion and mucous plugging. Bronchoscopy, surgical procedures, etc can be more harmful than beneficial and family would not want to pursue this, which is very reasonable. Additionally tPA administration for lytic purposes would not assist in aeration given other pulmonary issues discussed above and may carry an unreasonable bleeding risk. At this time we will downgrade the patient to telemetry with drainage of the chest tube. We will continue to have discussions with the family regarding longevity of the tube and they are in understanding that the pulmonary process may not be resolved, the goals would be to ensure that she has minimal symptoms during this disease process. Joana Gomez Additional time spent 35 min
[2017-03-30 16:00] VITALS: BP 100/60
[2017-03-30 16:48] LABS: ABSOLUTE BASOPHIL COUNT 0 /CUMM (0.0-0.2); ABSOLUTE EOSINOPHIL COUNT 0.1 /CUMM (0.0-0.7); ABSOLUTE GRANULOCYTE CT 8.4 /CUMM (1.4-6.5); ABSOLUTE LYMPH COUNT 0.6 /CUMM (1.2-3.4); BASOPHIL % 0.2 % (0.0-2.0); EOSINOPHIL % 1.3 % (0-5); GRANULOCYTE % 82.8 % (42.2-75.2); HEMATOCRIT 32.4 % (37-47); MEAN CORPUSCULAR HGB 31.9 PG (27.0-31.0); MEAN CORPUSCULAR HGB CONC 33.2 G/DL (33.0-37.0); MEAN PLATELET VOLUME 7.6 FL (7.4-10.4); PLATELET COUNT 324 /CUMM (130-400); RBC DISTRIBUTION WIDTH 14.7 % (11.5-14.5); RED BLOOD CELL CT 3.37 /CUMM (4.20-5.40); WHITE BLOOD CELL COUNT 10.2 /CUMM (4.8-10.8)
[2017-03-31 06:47] VITALS: BP 120/80
--- NOTE | 2017-03-31 07:16 | Transfer of Care Summary ---
Hospital Course Course Hospital Course: 86 y old female with a PMH of dementia, A. fib on Xeralto, peripheral artery disease, chronic diastolic heart failure, rheumatoid arthritis, diabetes mellitus who presents to [facility] ED with her family very confused and not able to provide history. Problem List: 1. Partially loculated pleural effusion 2. Community-acquired pneumonia 3. Acute kidney injury 4. Delirium Partially loculated Pleural Effusion and Commity Acquired Pneumonia: The patient came in with productive cough, confusion, and shortness of breath. She was found to have a moderate to large partially loculated pleural effusion on her initial CT scan. There was also consolidation at left lower lobe. It was initally planned to drain her loculated effusion on March 26. However, radiology called before the procedure and thought that the effusion was smaller than initially indicated. They decided not to drain at that time. Repeat CXR on 03/27 showed [id number] left-sided pleural effusion with underlying collapse consolidation of left lower lobe. She was maintained on ceftriaxone and azithromycin on telemetry floor. She was switched to Vanc and Ceftaz after being transferred to ICU. In the ICU, her IV Vancomycin and Ceftazidime for CAP. She had a diagnostic/ therapeutic thoracentesis 03/29 with placement of pleurx catheter. Over 500cc of fluid was drained during the procedure. She has put out 200cc in the past 24 hours. S/P drainage CXR on 03/30 did not show significant improvement and a CAT scan was pursued (see full report). Dr Munroe readjusted her pigtail catheter by the bedside yesterday to improve drainage from the catheter. She was considered for tPA as there was concern for loculations obstructing drainage but it was decided against it. See event note by Dr Gomez. * Follow up pleural studies * follow up drainage from the catheter overnight. Hypotension/Atrial Fibrilliation: She has been persistently hypotensive for the past couple of days. One time dose of IV dignoxin 0.5mg was given 03/29 as she has been persistently tachy. Per cardiology Cardizem CD and metoprolol have been discontinued. Instead she has been started on regular Cardizem 30mg q8. She has been restarted on Xarelto for her anticoagulation. Can use digoxin prn if needed to control heart rate. Acute kidney injury: Patient presented with creatinine 1.4. Was likely prerenal azotemia in the setting of infection and dehydration. Cr is back to baseline of 1.0. Will hold ACEi and Furosemide in the context of hypotenion. Restart as tolerated or deemed necessary History of Hyperlipidemia: * Continue home atorvastatin DVT prophylaxis with Xarelto Heart healthy diet puree, nectar thick. Swallow evaluation to upgrade diet was attempted yesterday but the patient refused. Full code Assessment/Plan: .
--- NOTE | 2017-03-31 07:18 | PN- Housestaff ---
See Addendum Subjective Follow-up For: Pleural effusion, PNA Tele-Events Since Last Visit: 2 episodes of NSVT, 100-120 Subjective: No overnight events. She is complaining of nose and leg pain. Says she hurt it at the store. Still coughing with sputum. No CP. Review of Systems Constitutional: Reports: no symptoms. EENTM: Reports: see HPI. Cardiovascular: Reports: no symptoms. Respiratory: Reports: see HPI. Gastrointestinal: Reports: no symptoms. Genitourinary: Reports: no symptoms. Musculoskeletal: Reports: see HPI. Skin: Reports: no symptoms. Neurological/Psychological: Reports: no symptoms. Hematologic/Endocrine: Reports: no symptoms. Immunologic/Allergic: Reports: no symptoms. Objective Last 24 Hrs of Vital Signs/I&O Vital Signs Date Time Temp Pulse Resp B/P B/P Pulse O2 O2 Flow FiO2 Mean Ox Delivery Rate 03/31 0647 98.8 114 22 120/80 89 Nasal 2.0L Cannula 03/31 0558 114 120/80 03/31 0000 Nasal 2.0L Cannula 03/30 2221 109 136/78 03/30 1600 98.2 113 20 100/60 03/30 1600 100 Nasal 2.0L Cannula 03/30 1306 102 22 107/68 03/30 1222 93 Nasal 2.0L Cannula 03/30 0818 98 Nasal 2.0L Cannula Intake & Output 03/31 0800 03/31 0000 03/30 1600 Intake Total 600 135 550 Output Total Balance 600 135 550 Intake, IV 600 75 475 Intake, Oral 60 75 Physical Exam General Appearance: Alert, Cooperative, No Acute Distress Cardiovascular: irregular Lungs: crackles, chest tube in place to suction with ~800mL Abdomen: Normal Bowel Sounds, Soft, No Tenderness Extremities: Left leg tender. Right leg BKA Current Medications: Current Medications Sig/Julio Start time Last Medication Dose Route Stop Time Status Admin Acetaminophen 1,000 MG .STK-MED ONE 03/30 1340 DC IV 03/30 1341 Acetaminophen 1,000 MG Q6P PRN 03/24 1945 AC 03/30 IV 1342 Albuterol Sulfate 3 ML Q4-PRN PRN 03/28 2345 AC INH Atorvastatin Calcium 10 MG 1700 03/25 1700 AC 03/30 PO 1703 Bisacodyl 5 MG DAILY NEEDED PRN 03/26 0745 AC 03/26 PO 0955 Bisacodyl 10 MG DAILY NEEDED PRN 03/26 0745 AC 03/26 MO 1759 Ceftazidime 1,000 MG Q12H 03/28 1600 AC 03/31 IV 0503 Diltiazem HCl 30 MG Q8 03/30 1400 AC 03/30 PO 2221 Diltiazem HCl 5 MG ONCE ONE 03/30 1330 CAN IV PUSH 03/30 1331 Diltiazem HCl 15 MG ONCE ONE 03/30 0930 DC PO 03/30 0931 Diltiazem HCl 180 MG DAILY 03/25 1000 DC 03/26 PO 0955 Insulin Aspart 0 TIDAC 03/25 1700 AC 03/30 SC 1703 Lorazepam 0.5 MG ONCE ONE 03/30 1500 DC IV 03/30 1501 Metoprolol Succinate 50 MG QAM 03/25 1000 DC 03/26 PO 0955 Prednisone 2.5 MG DAILY 03/26 1649 AC 03/30 PO 1045 Rivaroxaban 15 MG 1700 03/30 1700 AC 03/30 PO 1703 Rivaroxaban 15 MG 1700 03/29 1700 DC 03/29 PO 1833 Senna/Docusate Sodium 2 TAB DAILY PRN 03/25 1815 AC 03/26 PO 0955 Sodium Chloride 1,000 ML Q20H 03/29 0915 AC 03/31 IV 0133 Vancomycin HCl 1,000 MG DAILY@1700 03/28 1700 AC 03/30 Dextrose/Water 250 ML IV 1702 Last 24 Hrs of Lab/Raghu Results Last 24 Hrs of Labs/Mics: Laboratory Tests 03/31/17 0641: Sodium Pending, Potassium Pending, Chloride Pending, Carbon Dioxide Pending, Anion Gap Pending, BUN Pending, Creatinine Pending, Glucose Pending, Calcium Pending, Phosphorus Pending, Magnesium Pending, Total Bilirubin Pending, AST Pending, ALT Pending, Albumin Pending, CBC w Diff Pending, WBC Pending, RBC Pending, Hgb Pending, Hct Pending, MCV Pending, MCH Pending, RDW Pending, Plt Count Pending, MPV Pending, PUBS MCHC Pending 03/30/17 1556: CBC w Diff NO MAN DIFF REQ, RBC 3.37 L, MCV 96.0, MCH 31.9 H, RDW 14.7 H, MPV 7.6, Gran % 82.8 H, Lymphocytes % 6.0 L, Monocytes % 9.7 H, Eosinophils % 1.3 , Basophils % 0.2, Absolute Granulocytes 8.4 H, Absolute Lymphocytes 0.6 L, Absolute Monocytes 1.0 H, Absolute Eosinophils 0.1, Absolute Basophils 0, PUBS MCHC 33.2 Assessment/Plan Assessment: 86 y old female with a PMH of dementia, A. fib on Xeralto, peripheral artery disease, chronic diastolic heart failure, rheumatoid arthritis, diabetes mellitus who presents to [place] ED with her family very confused and not able to provide history. Problem List: 1. Partially loculated pleural effusion status post drainage with Pleurx catheter placement 2. Community-acquired pneumonia 3. Acute kidney injury 4. Delirium 5. Atrial fibrillation with rapid ventricular rate #Partially loculated pleural effusion status post drainage: The patient came in with productive cough, confusion, and shortness of breath. She is found to have a moderate to large partially loculated pleural effusion on CT scan. Cultures were negative. He was started on ceftriaxone and azithromycin. IR and pulm decided not to drain the effusion on 03/26/17. TTE showed EF 60-65% and RV pressure 35 mmHg. She subsequently decompensated with desaturation and fever and was transferred to the ICU on 03/28/2017. Antibiotics were upgraded to vancomycin and ceftazidine. Repeat imaging revealed that the pleural effusion was enlarged with complete opacification of left hemithorax and a new mild rightward shift of the mediastinum. On 03/29/2017, IR performed ultrasound-guided thoracocentesis draining 500 mL of fluid and inserting a Pleurx catheter. Fluid analysis subsequently revealed it to be exudative. Repeat imaging on 03/30/2017 did not show significant improvement. IR readjusted the pigtail catheter at the bedside and improved the drainage. The Pleurx catheter has since drained approximately 800 mL additional fluid. Her respiratory status has since stabilized and her mental status is improved as well. -Appreciate pulmonology recommendations -Appreciate cardiology recommendations -Continue vancomycin and ceftazidine -Follow cultures #Atrial fibrillation with rapid ventricular rate: Her rates have been elevated. She has also had some intermittent hypotension. Her rates overnight were 100- 120. -Diltiazem 30 mg every 8 hours #Acute kidney injury: Patient presented with creatinine 1.4. Baseline is 1.0. Likely prerenal azotemia in the setting of infection. Resolved. -Avoid nephrotoxic medications -Holding GASTON inhibitor and furosemide #Constipation: Abdominal x-ray shows moderate amount of stool. Last bowel movement was March 22 -Bisacodyl when necessary -Senna when necessary #Chronic medical problems: -Continue home atorvastatin, insulin, prednisone, rivaroxaban DVT prophylaxis with rivaroxaban Heart healthy diet, puree, nectar thick DNR/DNI Problem List: 1. Pleural effusion Pain Ratin Pain Location: no Pain Goal: Remain pain free Pain Plan: see a/p Tomorrow's Labs & Rationales: cbc,bep, mg, phos
[2017-03-31 07:55] LABS: ABSOLUTE BASOPHIL COUNT 0 /CUMM (0.0-0.2); ABSOLUTE EOSINOPHIL COUNT 0.2 /CUMM (0.0-0.7); ABSOLUTE GRANULOCYTE CT 8.9 /CUMM (1.4-6.5); ABSOLUTE LYMPH COUNT 0.8 /CUMM (1.2-3.4); BASOPHIL % 0.4 % (0.0-2.0); EOSINOPHIL % 1.4 % (0-5); GRANULOCYTE % 81.6 % (42.2-75.2); HEMATOCRIT 32.4 % (37-47); MEAN CORPUSCULAR HGB 32.3 PG (27.0-31.0); MEAN CORPUSCULAR HGB CONC 33.6 G/DL (33.0-37.0); MEAN CORPUSCULAR VOLUME 95.9 FL (81.0-99.0); MEAN PLATELET VOLUME 7.2 FL (7.4-10.4); PLATELET COUNT 332 /CUMM (130-400); RBC DISTRIBUTION WIDTH 15.1 % (11.5-14.5); RED BLOOD CELL CT 3.38 /CUMM (4.20-5.40); WHITE BLOOD CELL COUNT 10.9 /CUMM (4.8-10.8)
--- NOTE | 2017-03-31 12:22 | PN- Cardiology ---
Subjective Subjective: Remains confused but appears comfortable. Objective Vital Signs and I&Os Vital Signs Date Time Temp Pulse Resp B/P B/P Pulse O2 O2 Flow FiO2 Mean Ox Delivery Rate 03/31 0800 Room Air 03/31 0647 98.8 114 22 120/80 89 Nasal 2.0L Cannula 03/31 0558 114 120/80 03/31 0000 Nasal 2.0L Cannula 03/30 2221 109 136/78 03/30 1600 98.2 113 20 100/60 03/30 1600 100 Nasal 2.0L Cannula 03/30 1306 102 22 107/68 03/30 1222 93 Nasal 2.0L Cannula Intake & Output 03/31 1600 03/31 0800 03/31 0000 03/30 1600 03/30 0800 03/30 0000 Intake Total 600 135 550 400 360 Output Total 10 525 Balance 600 135 550 390 -165 Intake, IV 600 75 475 400 300 Intake, Oral 60 75 0 60 Output, Urine 10 525 Physical Exam: General: Awake but confused Eyes: No obvious scleral icterus. HEENT: No jugular venous distention or abnormal jugular venous pulsations. Cardiovascular: Normal intensity S1/S2. Irregular tachycardia Respiratory: Decreased air entry on the left Abdomen: Soft Skin: Warm Current Medications: Current Medications Sig/Julio Start time Last Medication Dose Route Stop Time Status Admin Acetaminophen 1,000 MG .STK-MED ONE 03/30 1340 DC IV 03/30 1341 Acetaminophen 1,000 MG Q6P PRN 03/24 1945 AC 03/30 IV 1342 Albuterol Sulfate 3 ML Q4-PRN PRN 03/28 2345 AC INH Atorvastatin Calcium 10 MG 1700 03/25 1700 AC 03/30 PO 1703 Bisacodyl 5 MG DAILY NEEDED PRN 03/26 0745 AC 03/26 PO 0955 Bisacodyl 10 MG DAILY NEEDED PRN 03/26 0745 AC 03/26 MA 1759 Ceftazidime 1,000 MG Q12H 03/28 1600 AC 03/31 IV 0503 Diltiazem HCl 30 MG Q8 03/30 1400 AC 03/30 PO 2221 Diltiazem HCl 5 MG ONCE ONE 03/30 1330 CAN IV PUSH 03/30 1331 Insulin Aspart 0 TIDAC 03/25 1700 AC 03/30 SC 1703 Lorazepam 0.5 MG ONCE ONE 03/30 1500 DC IV 03/30 1501 Phosphate 250 MG BID 03/31 1135 AC PO 03/31 2201 Prednisone 2.5 MG DAILY 03/26 1649 AC 03/31 PO 0917 Rivaroxaban 15 MG 03/30 1700 AC 03/30 PO 1703 Rivaroxaban 15 MG 03/29 1700 DC 03/29 PO 1833 Senna/Docusate Sodium 2 TAB DAILY PRN 03/25 1815 AC 03/26 PO 0955 Sodium Chloride 1,000 ML Q20H 03/29 0915 AC 03/31 IV 0133 Vancomycin HCl 1,000 MG DAILY@1700 03/28 170 AC 03/30 Dextrose/Water 250 ML IV 1702 Results Last 48 Hrs of Labs/Mics: Laboratory Tests 03/31/17 0641: Anion Gap 11, Estimated GFR > 60, Glucose 135 H, Calcium 7.9 L, Phosphorus 2.0 L, Magnesium 1.8, Total Bilirubin 0.3, AST 64 H, ALT 123 H, Albumin 2.2 L, CBC w Diff NO MAN DIFF REQ, RBC 3.38 L, MCV 95.9, MCH 32.3 H, RDW 15.1 H, MPV 7.2 L, Gran % 81.6 H, Lymphocytes % 7.8 L, Monocytes % 8.8, Eosinophils % 1.4 , Basophils % 0.4, Absolute Granulocytes 8.9 H, Absolute Lymphocytes 0.8 L, Absolute Monocytes 1.0 H, Absolute Eosinophils 0.2, Absolute Basophils 0, PUBS MCHC 33.6 03/30/17 1556: CBC w Diff NO MAN DIFF REQ, RBC 3.37 L, MCV 96.0, MCH 31.9 H, RDW 14.7 H, MPV 7.6, Gran % 82.8 H, Lymphocytes % 6.0 L, Monocytes % 9.7 H, Eosinophils % 1.3 , Basophils % 0.2, Absolute Granulocytes 8.4 H, Absolute Lymphocytes 0.6 L, Absolute Monocytes 1.0 H, Absolute Eosinophils 0.1, Absolute Basophils 0, PUBS MCHC 33.2 03/30/17 0424: Anion Gap 10, Estimated GFR > 60, Glucose 128 H, Calcium 7.9 L, Phosphorus 2.2 L, Magnesium 1.8, Total Bilirubin 0.3, AST 80 H, ALT 117 H, Albumin 2.1 L, CBC w Diff NO MAN DIFF REQ, RBC 3.04 L, MCV 94.8, MCH 31.5 H, RDW 14.7 H, MPV 7.6, Gran % 76.7 H, Lymphocytes % 10.1 L, Monocytes % 11.1 H, Eosinophils % 1.9, Basophils % 0.2, Absolute Granulocytes 7.3 H, Absolute Lymphocytes 1.0 L, Absolute Monocytes 1.1 H, Absolute Eosinophils 0.2, Absolute Basophils 0, PUBS MCHC 33.3 03/29/17 1240: Pleural pH 7.02 03/29/17 1240: Fluid WBC 846 H, Fld Mesothelial Cells , Fld Total RBCs Counted 613 H 03/29/17 1240: Lymphocytes 23, % Normal PMNs 60, Phlebotomy Draw Site LT PLEURAL, Fluid Glucose 57, Fluid Total Protein 3.0, Fluid Albumin 1.5, Fluid LDH 1724, Fluid Cholesterol < 50 Recent Imaging Studies: Telemetry tracings were personally reviewed show atrial fibrillation with rapid ventricular response rate Assessment/Plan Assessment/Plan 1 Community acquired pneumonia in the left lower lobe and partially loculated left pleural effusion s/p pigtail catheter 2. Atrial fibrillation persisted and chronic rate control strategy 3. On oral anticoagulation with Xarelto 4. Dementia 5. History of pulmonary embolism and deep vein thrombosis 6. Chronic diastolic congestive heart failure. No acute CHF at this time 7. Left bundle branch block 8. Hypertension 9. 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 Diabetes mellitus 11. Rheumatoid arthritis The patient has been resumed on oral Cardizem although she appears to intermittently be refusing medication. If heart rate remains above goal and blood pressure tolerates can also resume her beta hossein. Her Xarelto has been resumed. She remains on antibiotics. Neftali Duggan MD [facility] Continue telemetry? Yes
--- NOTE | 2017-03-31 13:55 | PN- Pulmonary ---
Subjective HPI/Critical Care Issues: Patient seen and examined this morning. She has been transferred to telemetry. She has been slightly tachycardic this morning. Her pulse oximetry is 90% on 2 L nasal cannula. Objective Current Medications: Current Medications Sig/Julio Start time Last Medication Dose Route Stop Time Status Admin Acetaminophen 1,000 MG Q6P PRN 03/24 1945 AC 03/30 IV 1342 Albuterol Sulfate 3 ML Q4-PRN PRN 03/28 2345 AC INH Atorvastatin Calcium 10 MG 1700 03/25 1700 AC 03/30 PO 1703 Bisacodyl 5 MG DAILY NEEDED PRN 03/26 0745 AC 03/26 PO 0955 Bisacodyl 10 MG DAILY NEEDED PRN 03/26 0745 AC 03/26 OK 1759 Ceftazidime 1,000 MG Q12H 03/28 1600 AC 03/31 IV 0503 Diltiazem HCl 30 MG Q8 03/30 1400 AC 03/30 PO 2221 Insulin Aspart 0 TIDAC 03/25 1700 AC 03/31 SC 1220 Lorazepam 0.5 MG ONCE ONE 03/30 1500 DC 03/31 IV 03/30 1501 1218 Phosphate 250 MG BID 03/31 1135 AC PO 03/31 2201 Prednisone 2.5 MG DAILY 03/26 1649 AC 03/31 PO 0917 Rivaroxaban 15 MG 1700 03/30 1700 AC 03/30 PO 1703 Rivaroxaban 15 MG 1700 03/29 1700 DC 03/29 PO 1833 Senna/Docusate Sodium 2 TAB DAILY PRN 03/25 1815 AC 03/26 PO 0955 Sodium Chloride 1,000 ML Q20H 03/29 0915 AC 03/31 IV 0133 Vancomycin HCl 1,000 MG DAILY@1700 03/28 1700 AC 03/30 Dextrose/Water 250 ML IV 1702 Vital Signs & I&O Last 24 Hrs of Vitals and I&O: Vital Signs Date Time Temp Pulse Resp B/P B/P Pulse O2 O2 Flow FiO2 Mean Ox Delivery Rate 03/31 0800 Room Air 03/31 0647 98.8 114 22 120/80 89 Nasal 2.0L Cannula 03/31 0558 114 120/80 03/31 0000 Nasal 2.0L Cannula 03/30 2221 109 136/78 03/30 1600 98.2 113 20 100/60 03/30 1600 100 Nasal 2.0L Cannula Intake & Output 03/31 1600 03/31 0800 03/31 0000 Intake Total 600 135 Output Total Balance 600 135 Intake, IV 600 75 Intake, Oral 60 Exam Other Physical Findings: Generally - Awake, confused Head and neck - normocephalic, atraumatic, EOMI grossly intact Cardiovascular - S1, S2, systolic murmur Lungs -rare rhonchi with diminished breath sounds at the bases Abdomen - Bowel sounds positive, soft, non-tender Extremities - without edema, hx bka Results Last 24 Hrs of Lab Results: Laboratory Tests 03/31/17 0641: Anion Gap 11, Estimated GFR > 60, Glucose 135 H, Calcium 7.9 L, Phosphorus 2.0 L, Magnesium 1.8, Total Bilirubin 0.3, AST 64 H, ALT 123 H, Albumin 2.2 L, CBC w Diff NO MAN DIFF REQ, RBC 3.38 L, MCV 95.9, MCH 32.3 H, RDW 15.1 H, MPV 7.2 L, Gran % 81.6 H, Lymphocytes % 7.8 L, Monocytes % 8.8, Eosinophils % 1.4 , Basophils % 0.4, Absolute Granulocytes 8.9 H, Absolute Lymphocytes 0.8 L, Absolute Monocytes 1.0 H, Absolute Eosinophils 0.2, Absolute Basophils 0, PUBS MCHC 33.6 03/30/17 1556: CBC w Diff NO MAN DIFF REQ, RBC 3.37 L, MCV 96.0, MCH 31.9 H, RDW 14.7 H, MPV 7.6, Gran % 82.8 H, Lymphocytes % 6.0 L, Monocytes % 9.7 H, Eosinophils % 1.3 , Basophils % 0.2, Absolute Granulocytes 8.4 H, Absolute Lymphocytes 0.6 L, Absolute Monocytes 1.0 H, Absolute Eosinophils 0.1, Absolute Basophils 0, PUBS MCHC 33.2 Impression/Plan Impression/Plan Impression/Plan: Impression 86 year old woman * partially loculated pleural effusion -significantly enlarged with mediastinal shift * community acquired pneumonia left side * a.fib on xarelto * ROBINSON improved * Delirium Plan -s/p pigtail catheter, pulled back by IR -04/01 check CXR -cont abx -f/u pleural studies -d/w family -f/u cardiology from 03/30 Discussed goals of care. She is DNR/DNI. She has significant atelectasis, pleural effusion and mucous plugging. Bronchoscopy, surgical procedures, etc can be more harmful than beneficial and family would not want to pursue this, which is very reasonable. Additionally tPA administration for lytic purposes would not assist in aeration given other pulmonary issues discussed above and may carry an unreasonable bleeding risk. At this time we will downgrade the patient to telemetry with drainage of the chest tube. We will continue to have discussions with the family regarding longevity of the tube and they are in understanding that the pulmonary process may not be resolved, the goals would be to ensure that she has minimal symptoms during this disease process. DVT prophylaxis at all times DNR/DNI
[2017-03-31 14:23] VITALS: BP 128/84
--- NOTE | 2017-03-31 16:53 | RADIOLOGY REPORT ---
EXAMINATION: CR PORTABLE CHEST CLINICAL INFORMATION: Pleural effusion status post drainage. Follow-up exam. COMPARISON: CT scan of the chest dated 03/30/2017. Chest x-ray dated 03/30/2017. TECHNIQUE: Portable AP semiupright view of the chest was obtained. FINDINGS: A left-sided pigtail catheter is again seen in place with tip coiled in the mid lower chest. There is complete opacification of the left hemithorax with volume loss and shift of the mediastinum toward the left side, similar to prior exam and consistent with complete collapse of the left lung. A small amount of lucency is noted in the mid and lower left lung, likely corresponding to the small pleural locules of air seen on yesterday's CT scan. The right lung is fully expanded. There is continued mild blunting of the right CP angle, consistent with a small pleural effusion. Mild perihilar reticular prominence is also seen, unchanged, perhaps reflecting mild central vascular congestion and mild atelectasis. No pneumothorax is seen. Old healed fracture deformity of the left shoulder and severe degenerative changes in both shoulder joints are noted. Multilevel degenerative changes are also seen in the spine. Several EKG leads overlie the chest. IMPRESSION: 1. No significant change in complete collapse of the left lung with associated left-sided pleural effusion and lower chest pleural catheter. 2. No significant change in small right-sided pleural effusion and associated right basilar subsegmental atelectasis and central vascular congestion.
[2017-03-31 22:11] VITALS: BP 122/60
[2017-04-01 07:47] LABS: ABSOLUTE BASOPHIL COUNT 0.1 /CUMM (0.0-0.2); ABSOLUTE EOSINOPHIL COUNT 0.3 /CUMM (0.0-0.7); ABSOLUTE GRANULOCYTE CT 7.4 /CUMM (1.4-6.5); ABSOLUTE LYMPH COUNT 1.4 /CUMM (1.2-3.4); ABSOLUTE MONOCYTE COUNT 0.9 /CUMM (0.10-0.60); BASOPHIL % 0.9 % (0.0-2.0); EOSINOPHIL % 3.3 % (0-5); GRANULOCYTE % 73.2 % (42.2-75.2); HEMATOCRIT 30.4 % (37-47); MEAN CORPUSCULAR HGB 32.1 PG (27.0-31.0); MEAN CORPUSCULAR HGB CONC 33.5 G/DL (33.0-37.0); MEAN CORPUSCULAR VOLUME 95.9 FL (81.0-99.0); MEAN PLATELET VOLUME 6.9 FL (7.4-10.4); PLATELET COUNT 372 /CUMM (130-400); RBC DISTRIBUTION WIDTH 14.8 % (11.5-14.5); RED BLOOD CELL CT 3.17 /CUMM (4.20-5.40); WHITE BLOOD CELL COUNT 10.2 /CUMM (4.8-10.8)
--- NOTE | 2017-04-01 07:50 | PN- Housestaff ---
See Addendum Subjective Follow-up For: Pleural effusion Tele-Events Since Last Visit: Afib 90-110 Subjective: No overnight events. Chest tube with 1130mL. Patient refusing meds, wants to be left alone. Review of Systems Constitutional: Reports: no symptoms. EENTM: Reports: no symptoms. Cardiovascular: Reports: no symptoms. Respiratory: Reports: no symptoms. Gastrointestinal: Reports: no symptoms. Genitourinary: Reports: no symptoms. Musculoskeletal: Reports: no symptoms. Skin: Reports: no symptoms. Neurological/Psychological: Reports: no symptoms. Hematologic/Endocrine: Reports: no symptoms. Immunologic/Allergic: Reports: no symptoms. Objective Last 24 Hrs of Vital Signs/I&O Vital Signs Date Time Temp Pulse Resp B/P B/P Pulse O2 O2 Flow FiO2 Mean Ox Delivery Rate 04/01 0654 105 04/01 0000 Nasal 2.0L Cannula 03/31 2211 97.3 95 22 122/60 93 Room Air 03/31 2132 94 122/60 03/31 1600 97 Nasal 2.0L Cannula 03/31 1425 114 128/84 03/31 1423 98.7 114 24 128/84 84 03/31 0800 Room Air Intake & Output 04/01 0800 04/01 0000 03/31 1600 Intake Total 600 600 660 Output Total 300 900 Balance 300 -300 660 Intake, IV 600 600 600 Intake, Oral 0 0 60 Number 0 0 Bowel Movements Output, Chest 900 Tube Drainage Output, Urine 300 Physical Exam General Appearance: Alert, No Acute Distress Cardiovascular: irregular Lungs: crackles Abdomen: Normal Bowel Sounds, Soft, No Tenderness Current Medications: Current Medications Sig/Juloi Start time Last Medication Dose Route Stop Time Status Admin Acetaminophen 1,000 MG Q6P PRN 03/24 1945 AC 03/30 IV 1342 Albuterol Sulfate 3 ML Q4-PRN PRN 03/28 2345 AC INH Atorvastatin Calcium 10 MG 1700 03/25 1700 AC 03/31 PO 1556 Bisacodyl 5 MG DAILY NEEDED PRN 03/26 0745 AC 03/26 PO 0955 Bisacodyl 10 MG DAILY NEEDED PRN 03/26 0745 AC 03/26 OK 1759 Ceftazidime 1,000 MG Q12H 03/28 1600 AC 04/01 IV 0451 Diltiazem HCl 30 MG Q8 03/30 1400 AC 03/31 PO 1425 Insulin Aspart 0 TIDAC 03/25 1700 AC 03/31 SC 1220 Lorazepam 2 MG .STK-MED ONE 03/31 1215 DC IM 03/31 1216 Phosphate 250 MG BID 03/31 1135 DC 03/31 PO 03/31 2201 1424 Prednisone 2.5 MG DAILY 03/26 1649 AC 03/31 PO 0917 Quetiapine Fumarate 12.5 MG AT BEDTIME 03/31 2200 AC PO Rivaroxaban 15 MG 1700 03/30 1700 AC 03/31 PO 1556 Senna/Docusate Sodium 2 TAB DAILY PRN 03/25 1815 AC 03/26 PO 0955 Sodium Chloride 1,000 ML Q20H 03/29 0915 AC 03/31 IV 1804 Vancomycin HCl 1,000 MG DAILY@1700 03/28 1700 AC 03/31 Dextrose/Water 250 ML IV 1556 Last 24 Hrs of Lab/Raghu Results Last 24 Hrs of Labs/Mics: Laboratory Tests 04/01/17 0707: Sodium Pending, Potassium Pending, Chloride Pending, Carbon Dioxide Pending, Anion Gap Pending, BUN Pending, Creatinine Pending, BUN/Creatinine Ratio Pending , Phosphorus Pending, Magnesium Pending, CBC w Diff Pending, WBC Pending, RBC Pending, Hgb Pending, Hct Pending, MCV Pending, MCH Pending, MCHC Pending, RDW Pending, Plt Count Pending, MPV Pending Assessment/Plan Assessment: 86 y old female with a PMH of dementia, A. fib on Xeralto, peripheral artery disease, chronic diastolic heart failure, rheumatoid arthritis, diabetes mellitus who presents to [place] ED with her family very confused and not able to provide history. Problem List: 1. Partially loculated pleural effusion status post drainage with Pleurx catheter placement 2. Community-acquired pneumonia 3. Acute kidney injury 4. Delirium 5. Atrial fibrillation with rapid ventricular rate #Partially loculated pleural effusion status post drainage: The patient came in with productive cough, confusion, and shortness of breath. She is found to have a moderate to large partially loculated pleural effusion on CT scan. Cultures were negative. He was started on ceftriaxone and azithromycin. IR and pulm decided not to drain the effusion on 03/26/17. TTE showed EF 60-65% and RV pressure 35 mmHg. She subsequently decompensated with desaturation and fever and was transferred to the ICU on 03/28/2017. Antibiotics were upgraded to vancomycin and ceftazidine. Repeat imaging revealed that the pleural effusion was enlarged with complete opacification of left hemithorax and a new mild rightward shift of the mediastinum. On 03/29/2017, IR performed ultrasound-guided thoracocentesis draining 500 mL of fluid and inserting a Pleurx catheter. Fluid analysis subsequently revealed it to be exudative. Cytology showed lymphocytes, neutrophils, rare histiocytes and red blood cells but features of malignancy were not identified. 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 Repeat imaging on 03/30/2017 did not show significant improvement. IR readjusted the pigtail catheter at the bedside and improved the drainage. The Pleurx catheter has since drained approximately 800 mL additional fluid. Her respiratory status has since stabilized and her mental status is improved as well. However, CXR showing no improvement in size of effusion. -Appreciate pulmonology recommendations -Appreciate cardiology recommendations -Continue vancomycin and ceftazidine -Follow cultures: Pleural fluid shows no growth -ID consultation -Consider starting indomethacin for rheumatoid arthritis/effusion #Atrial fibrillation with rapid ventricular rate: Her rates have been elevated. She has also had some intermittent hypotension. Her rates overnight were 100- 120. -Diltiazem 30 mg every 8 hours #Acute kidney injury: Patient presented with creatinine 1.4. Baseline is 1.0. Likely prerenal azotemia in the setting of infection. Resolved. -Avoid nephrotoxic medications -Holding GASTON inhibitor and furosemide #Constipation: Abdominal x-ray shows moderate amount of stool. Last bowel movement was March 22 -Bisacodyl when necessary -Senna when necessary #Chronic medical problems: -Continue home atorvastatin, insulin, prednisone, rivaroxaban DVT prophylaxis with rivaroxaban Heart healthy diet, puree, nectar thick DNR/DNI Problem List: 1. Pleural effusion Pain Ratin Pain Location: none Pain Goal: Remain pain free Pain Plan: see a/p Tomorrow's Labs & Rationales: cbc, bep
--- NOTE | 2017-04-01 08:43 | RADIOLOGY REPORT ---
EXAMINATION: XR PORTABLE CHEST CLINICAL INFORMATION: Shortness of breath. Pleural effusion. COMPARISON: Chest x-ray most recent prior dated 03/31/2017 TECHNIQUE: Portable frontal view of the chest was obtained. FINDINGS: Opacification left hemithorax compatible with large effusion as seen on the CT chest. No significant change since 03/31/2017 chest x-ray. Left-sided pigtail catheter with tip in the left base somewhat similar to the prior examination. Aerated right lung demonstrates hazy prominence of the interstitial markings consistent with mild interstitial edema. Small right pleural effusion. IMPRESSION: Persistent opacification of the left hemithorax similar to the prior study. Left-sided pigtail catheter with tip in the left base similar to the prior study. Interval mild right-sided interstitial edema. Small right pleural effusion.
--- NOTE | 2017-04-01 09:20 | PN- Cardiology ---
Subjective Subjective: Telemetry reviewed. Atrial fibrillation with ventricular rate around 100. Upper rates 115. Objective Vital Signs and I&Os Vital Signs Date Time Temp Pulse Resp B/P B/P Pulse O2 O2 Flow FiO2 Mean Ox Delivery Rate 04/01 0814 109 20 04/01 0800 Nasal 2.0L Cannula 04/01 0654 105 04/01 0000 Nasal 2.0L Cannula 03/31 2211 97.3 95 22 122/60 93 Room Air 03/31 2132 94 122/60 03/31 1600 97 Nasal 2.0L Cannula 03/31 1425 114 128/84 03/31 1423 98.7 114 24 128/84 84 Intake & Output 04/01 1600 04/01 0800 04/01 0000 03/31 1600 03/31 0800 03/31 0000 Intake Total 600 600 660 600 135 Output Total 300 900 Balance 300 -300 660 600 135 Intake, IV 600 600 600 600 75 Intake, Oral 0 0 60 60 Number 0 0 Bowel Movements Output, Chest 900 Tube Drainage Output, Urine 300 Physical Exam: The patient is sleep. Poor historian due to dementia. Head normocephalic, atraumatic Eyes sclera anicteric conjunctiva showed no pallor extraocular muscles were normal Neck no jugular venous distention no thyroid masses no palpable nodes Chest lungs decreased air entry the left base Heart irregular rhythm with a ventricular rate around 100 Abdomen soft no organomegaly Extremities no edema no clubbing or cyanosis Current Medications: Current Medications Sig/Julio Start time Last Medication Dose Route Stop Time Status Admin Acetaminophen 1,000 MG Q6P PRN 03/24 1945 AC 03/30 IV 1342 Albuterol Sulfate 3 ML Q4-PRN PRN 03/28 2345 AC INH Atorvastatin Calcium 10 MG 1700 03/25 1700 AC 03/31 PO 1556 Bisacodyl 5 MG DAILY NEEDED PRN 03/26 0745 AC 03/26 PO 0955 Bisacodyl 10 MG DAILY NEEDED PRN 03/26 0745 AC 03/26 [place] 1759 Ceftazidime 1,000 MG Q12H 03/28 1600 AC 04/01 IV 0451 Diltiazem HCl 30 MG Q8 03/30 1400 AC 03/31 PO 1425 Insulin Aspart 0 TIDAC 03/25 1700 AC 03/31 SC 1220 Lorazepam 2 MG .STK-MED ONE 03/31 1215 DC IM 03/31 1216 Phosphate 250 MG BID 03/31 1135 DC 03/31 PO 03/31 2201 1424 Prednisone 2.5 MG DAILY 03/26 1649 AC 03/31 PO 0917 Quetiapine Fumarate 12.5 MG AT BEDTIME 03/31 2200 AC PO Rivaroxaban 15 MG 17003/30 1700 AC 03/31 PO 1556 Senna/Docusate Sodium 2 TAB DAILY PRN 03/25 1815 AC 03/26 PO 0955 Sodium Chloride 1,000 ML Q20H 03/29 0915 AC 03/31 IV 1804 Vancomycin HCl 1,000 MG DAILY@1700 03/28 1700 AC 03/31 Dextrose/Water 250 ML IV 1556 Results Last 48 Hrs of Labs/Mics: Laboratory Tests 04/01/17 0707: Anion Gap 13, Estimated GFR > 60, BUN/Creatinine Ratio 20.0, Phosphorus 1.9 L, Magnesium 1.6, CBC w Diff NO MAN DIFF REQ, RBC 3.17 L, MCV 95.9, MCH 32.1 H, MCHC 33.5, RDW 14.8 H, MPV 6.9 L, Gran % 73.2, Lymphocytes % 13.7 L, Monocytes % 8.9, Eosinophils % 3.3, Basophils % 0.9, Absolute Granulocytes 7.4 H, Absolute Lymphocytes 1.4, Absolute Monocytes 0.9 H, Absolute Eosinophils 0.3 , Absolute Basophils 0.1 03/31/17 0641: Anion Gap 11, Estimated GFR > 60, Glucose 135 H, Calcium 7.9 L, Phosphorus 2.0 L, Magnesium 1.8, Total Bilirubin 0.3, AST 64 H, ALT 123 H, Albumin 2.2 L, CBC w Diff NO MAN DIFF REQ, RBC 3.38 L, MCV 95.9, MCH 32.3 H, RDW 15.1 H, MPV 7.2 L, Gran % 81.6 H, Lymphocytes % 7.8 L, Monocytes % 8.8, Eosinophils % 1.4 , Basophils % 0.4, Absolute Granulocytes 8.9 H, Absolute Lymphocytes 0.8 L, Absolute Monocytes 1.0 H, Absolute Eosinophils 0.2, Absolute Basophils 0, PUBS MCHC 33.6 03/30/17 1556: CBC w Diff NO MAN DIFF REQ, RBC 3.37 L, MCV 96.0, MCH 31.9 H, RDW 14.7 H, MPV 7.6, Gran % 82.8 H, Lymphocytes % 6.0 L, Monocytes % 9.7 H, Eosinophils % 1.3 , Basophils % 0.2, Absolute Granulocytes 8.4 H, Absolute Lymphocytes 0.6 L, Absolute Monocytes 1.0 H, Absolute Eosinophils 0.1, Absolute Basophils 0, PUBS MCHC 33.2 Assessment/Plan Assessment/Plan In summary this 86-year-old female has the following problems 1 Community acquired pneumonia in the left lower lobe and partially loculated left pleural effusion s/p pigtail catheter 2. Atrial fibrillation persisted and chronic rate control strategy 3. On oral anticoagulation with Xarelto 4. Dementia 5. History of pulmonary embolism and deep vein thrombosis 6. Chronic diastolic congestive heart failure. No acute CHF at this time 7. Left bundle branch block 8. Hypertension 9. 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 Diabetes mellitus 11. Rheumatoid arthritis She is sometimes refusing her medications. Would increase diltiazem to 60 mg every 8 hours for better rate control. Anticoagulants have been resumed. Continue telemetry? Yes
--- NOTE | 2017-04-01 11:58 | PN- Pulmonary ---
Subjective HPI/Critical Care Issues: pt seen and examined confused ros unobtainable Objective Current Medications: Current Medications Sig/Julio Start time Last Medication Dose Route Stop Time Status Admin Acetaminophen 1,000 MG Q6P PRN 03/24 1945 AC 03/30 IV 1342 Albuterol Sulfate 3 ML Q4-PRN PRN 03/28 2345 AC INH Atorvastatin Calcium 10 MG 1700 03/25 1700 AC 03/31 PO 1556 Bisacodyl 5 MG DAILY NEEDED PRN 03/26 0745 AC 03/26 PO 0955 Bisacodyl 10 MG DAILY NEEDED PRN 03/26 0745 AC 03/26 [place] 1759 Ceftazidime 1,000 MG Q12H 03/28 1600 AC 04/01 IV 0451 Diltiazem HCl 30 MG Q8 03/30 1400 AC 03/31 PO 1425 Haloperidol 0.5 MG ONCE ONE 04/01 1115 DC 04/01 IM 04/01 1116 1122 Insulin Aspart 0 TIDAC 03/25 1700 AC 03/31 SC 1220 Lorazepam 2 MG .STK-MED ONE 03/31 1215 DC IM 03/31 1216 Magnesium Chloride 64 MG BID 04/01 1008 AC PO 04/01 2201 Naproxen 250 MG BID 04/01 1013 AC PO Omeprazole 40 MG DAILY AC 04/01 1052 AC PO Phosphate 250 MG PC AND AT BEDTIME 04/01 1300 AC PO Phosphate 250 MG BID 03/31 1135 DC 03/31 PO 03/31 2201 1424 Potassium Phosphate 15 mMol ONE ONE 04/01 0930 AC 04/01 Dextrose/Water 250 ML IV 04/01 1334 1040 Prednisone 2.5 MG DAILY 03/26 1649 AC 03/31 PO 0917 Quetiapine Fumarate 12.5 MG AT BEDTIME 03/31 2200 AC PO Rivaroxaban 15 MG 1700 03/30 1700 AC 03/31 PO 1556 Senna/Docusate Sodium 2 TAB DAILY PRN 03/25 1815 AC 03/26 PO 0955 Sodium Chloride 1,000 ML Q20H 03/29 0915 AC 04/01 IV 0931 Vancomycin HCl 1,000 MG DAILY@1700 03/28 1700 AC 03/31 Dextrose/Water 250 ML IV 1556 Vital Signs & I&O Last 24 Hrs of Vitals and I&O: Vital Signs Date Time Temp Pulse Resp B/P B/P Pulse O2 O2 Flow FiO2 Mean Ox Delivery Rate 04/01 0814 109 20 04/01 0800 Nasal 2.0L Cannula 04/01 0654 105 04/01 0000 Nasal 2.0L Cannula 03/31 2211 97.3 95 22 122/60 93 Room Air 03/31 2132 94 122/60 03/31 1600 97 Nasal 2.0L Cannula 03/31 1425 114 128/84 03/31 1423 98.7 114 24 128/84 84 Intake & Output 04/01 1600 04/01 0800 04/01 0000 Intake Total 600 600 Output Total 300 900 Balance 300 -300 Intake, IV 600 600 Intake, Oral 0 0 Number 0 0 Bowel Movements Output, Chest 900 Tube Drainage Output, Urine 300 Exam Other Physical Findings: Generally - Awake, confused Head and neck - normocephalic, atraumatic, EOMI grossly intact Cardiovascular - S1, S2, systolic murmur Lungs -rare rhonchi with diminished breath sounds at the bases Abdomen - Bowel sounds positive, soft, non-tender Extremities - without edema, hx bka Results Last 24 Hrs of Lab Results: Laboratory Tests 04/01/17 0707: Anion Gap 13, Estimated GFR > 60, BUN/Creatinine Ratio 20.0, Phosphorus 1.9 L, Magnesium 1.6, CBC w Diff NO MAN DIFF REQ, RBC 3.17 L, MCV 95.9, MCH 32.1 H, MCHC 33.5, RDW 14.8 H, MPV 6.9 L, Gran % 73.2, Lymphocytes % 13.7 L, Monocytes % 8.9, Eosinophils % 3.3, Basophils % 0.9, Absolute Granulocytes 7.4 H, Absolute Lymphocytes 1.4, Absolute Monocytes 0.9 H, Absolute Eosinophils 0.3 , Absolute Basophils 0.1, Rheum Factor Semi-Quant 30.2 H Impression/Plan Impression/Plan Impression/Plan: Impression 86 year old woman * partially loculated pleural effusion -significantly enlarged with mediastinal shift * community acquired pneumonia left side * a.fib on xarelto * ROBINSON improved * Delirium Plan -s/p pigtail catheter, pulled back by IR -cont abx -f/u pleural studies -d/w family -f/u cardiology -would consider aggressive diuresis and repeat cxr From 03/30 Discussed goals of care. She is DNR/DNI. She has significant atelectasis, pleural effusion and mucous plugging. Bronchoscopy, surgical procedures, etc can be more harmful than beneficial and family would not want to pursue this, which is very reasonable. Additionally tPA administration for lytic purposes would not assist in aeration given other pulmonary issues discussed above and may carry an unreasonable bleeding risk. At this time we will downgrade the patient to telemetry with drainage of the chest tube. We will continue to have discussions with the family regarding longevity of the tube and they are in understanding that the pulmonary process may not be resolved, the goals would be to ensure that she has minimal symptoms during this disease process. DVT prophylaxis at all times DNR/DNI
[2017-04-01 13:46] VITALS: BP 106/80
--- NOTE | 2017-04-01 15:46 | Cons- Infect Disease ---
General Information and HPI Consulting Request Date of Consult: 04/01/17 Requested By: Vitor Botello MD Reason for Consult: Left pleural effusion Source of Information: patient, family, old records Exam Limitations: dementia History of Present Illness: This is an 86-year-old woman with a history of dementia, atrial fibrillation, maintained on Xarelto, DVT of the left leg, pulmonary emboli, peripheral vascular disease, status post right BKA and amputation of the left great toe, rheumatoid arthritis, maintained on prednisone, and diastolic congestive heart failure admitted on March 24 after she was brought to the emergency room with a productive cough, increased lethargy, generalized aches and pains and increased combativeness for several days. On admission she was afebrile. Laboratory data revealed a white count of 13,000, BUN/creatinine 34 and 1.4, calcium 13.6, with normal liver enzymes, INR 1.56, ABG 7.47/39/73 on 3 L/m. Urinalysis 1-3 RBCs/1-3 WBCs. Chest x-ray revealed a dense consolidation of the left lung base with a probable left effusion. CT of the chest revealed volume loss of the left hemithorax with atelectasis/consolidation of the left lower lobe and a moderate to large left pleural effusion, partially loculated. She was given a dose of Clindamycin in the emergency room and then placed on Ceftriaxone and Azithromycin. On March 25 she was begun on Heparin in anticipation of a left thoracentesis, which was ultimately done on March 29. She had a low-grade fever of 100.5 on March 26 and apparently to 101.3 on March 28, at which point she desaturated, with her chest x-ray revealing a large left pleural effusion with underlying collapse and consolidation of the left lower lobe, and she was changed to Vancomycin and Ceftazidime and moved to the ICU. She underwent a thoracentesis on March 29, with removal of 500 mL of thin fluid, which was consistent with an exudate, with a pH of 7.02 and with 846 white blood cells, with placement of a pigtail catheter. This has been draining intermittently but repeat imaging has continued to reveal a large left pleural effusion. Presently she does report discomfort and swelling in the left upper extremity. She notes mild shortness of breath with no chest pain but her history is unreliable secondary to her underlying dementia. Allergies/Medications Allergies: Coded Allergies: warfarin (From COUMADIN) (Severe, "THROAT CLOSED" PER FAMILY 03/24/17) Penicillins (UNKNOWN 03/24/17) amoxicillin (UNKNOWN 03/24/17) risperidone (From RISPERDAL) (UNKNOWN 03/24/17) codeine (Intermediate, DIARRHEA 03/24/17) dabigatran etexilate (From PRADAXA) (Intermediate, BLEEDING 03/24/17) enoxaparin (From LOVENOX) (Intermediate, STOMACH PAIN 03/24/17) haloperidol (From HALDOL) (Intermediate, DIARRHEA, RAPID HR 03/24/17) rivaroxaban (From XARELTO) (Intermediate, BLEEDING 03/24/17) aspirin (BLEEDING PER FAMILY 03/24/17) Home Med List: Calcitriol 0.25 MCG CAPSULE 1 CAP PO DAILY SUPPLEMENT (Reported) Diltiazem HCl (Diltiazem 24HR ER) 180 MG CAP.ER.24H 1 CAP PO DAILY HEART/BP ( Reported) Furosemide (Unknown Strength) TABLET (Unknown Dose) PO DAILY DIURETIC ( Reported) Linagliptin (Tradjenta) 5 MG TABLET 1 TAB PO DAILY DM (Reported) Lorazepam 0.5 MG TABLET 1 TAB PO AD PRN ANXIETY (Reported) Losartan Potassium 25 MG TABLET 1 TAB PO DAILY HEART/BP (Reported) Magnesium Hydroxide (Milk Of Magnesia) 400 MG/5 ML ORAL.SUSP 15 ML PO PRN GI (Reported) Magnesium Oxide (Magnesium) 400 MG CAPSULE 1 CAP PO EOD SUPPLEMENT (Reported) Metformin HCl 500 MG TABLET 1 TAB PO BID DM (Reported) Metoprolol Succinate 50 MG TAB.ER.24H 1 TAB PO QAM HEART/BP (Reported) Multivitamin (Daily Value) 1 EACH TABLET 1 TAB PO DAILY SUPPLEMENT (Reported) Prednisone 1 MG TABLET 2 TAB PO Wednesday STEROID (Reported) Prednisone 1 MG TABLET 3 TAB PO STEROID (Reported) Pyridoxine HCl (Vitamin B-6) 50 MG TABLET 1 TAB PO DAILY SUPPLEMENT (Reported ) Risedronate Sodium (Actonel) 35 MG TABLET 1 TAB PO QSUN OSTEOPOROSIS ( Reported) Rivaroxaban (Xarelto) 15 MG TABLET 1 TAB PO DAILY BLOOD THINNER (Reported) Sennosides/Docusate Sodium (Senna S Tablet) 8.6 MG-50 MG TABLET 1 TAB PO EOD GI (Reported) Simvastatin (Simvastatin*) 20 MG TABLET 1 TAB PO QPM CHOLESTEROL (Reported) Past History Travel History Traveled to [place] past 21 day No Medical History Neurological: dementia EENT: [place] Cardiovascular: AFIB, CHF, hypertension, hyperlipidemia, PVD, DVT PE Respiratory: pulmonary embolism, pneumonia Gastrointestinal: NONE Hepatic: NONE Renal: NONE Musculoskeletal: rheumatoid arthritis, RT AKA Psychiatric: NONE Endocrine: diabetes, hypothyroidism Blood Disorders: DVT, IVC FILTER Cancer(s): NONE HATCHERY ATTENDANT/Reproductive: NONE Other Medical Hx: 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 FH: lung cancer MOTHER FH: emphysema Psychosocial History Services at Home: Nursing Smoking Status: Unknown If Ever Smoked Functional Ability ADLs Needs Assist: dressing, eating, toileting, bathing. Ambulation: non-ambulatory IADLs Needs Assist: shopping, housework, finances, food prep, telephone, transportation, medication admin. Review of Systems Review of Systems All Other Systems: Reviewed and Negative Exam & Diagnostic Data Last 24 Hrs of Vital Signs/I&O Vital Signs Date Time Temp Pulse Resp B/P B/P Pulse O2 O2 Flow FiO2 Mean Ox Delivery Rate 04/01 1424 97.5 120 20 94 Nasal 2.0L Cannula 04/01 1348 117 106/80 04/01 1346 117 106/80 04/01 0814 109 20 04/01 0800 Nasal 2.0L Cannula 04/01 0654 105 04/01 0000 Nasal 2.0L Cannula 03/31 2211 97.3 95 22 122/60 93 Room Air 03/31 2132 94 122/60 03/31 1600 97 Nasal 2.0L Cannula Intake & Output 04/01 1600 04/01 0800 04/01 0000 Intake Total 1215 600 600 Output Total 180 300 900 Balance 1035 300 -300 Intake, IV 855 600 600 Intake, Oral 360 0 0 Number 0 0 Bowel Movements Output, Chest 80 900 Tube Drainage Output, Urine 100 300 Physical Exam Other Physical Findings: Afebrile on steroids. She is awake and alert, pleasantly demented, in no acute distress. Skin reveals scattered ecchymoses. HEENT exam is poor dentition. Neck is supple with no adenopathy. Lungs decreased breath sounds on the left, with pigtail catheter in place with 900 mL output yesterday and 80 mL overnight. Heart irregular rhythm with no murmur. Abdomen is soft, nontender with positive bowel sounds. Back no CVA tenderness. Extremities left upper extremity swelling, mildly warm, with no tenderness on palpation; status post right AKA; status post left great toe amputation, with left leg edema. Neuro without focality. Last 24 Hours of Lab Results: Laboratory Tests 04/01 0707 Chemistry Sodium (137 - 145 mmol/L) 146 H Potassium (3.5 - 5.1 mmol/L) 3.1 L Chloride (98 - 107 mmol/L) 116 H Carbon Dioxide (22 - 30 mmol/L) 17 L Anion Gap (5 - 16) 13 BUN (7 - 17 mg/dL) 12 Creatinine (0.5 - 1.0 mg/dL) 0.6 Estimated GFR (>60 ml/min) > 60 BUN/Creatinine Ratio (7 - 25 %) 20.0 Phosphorus (2.5 - 4.5 mg/dL) 1.9 L Magnesium (1.6 - 2.3 mg/dL) 1.6 Hematology CBC w Diff NO MAN DIFF REQ WBC (4.8 - 10.8 /CUMM) 10.2 RBC (4.20 - 5.40 /CUMM) 3.17 L Hgb (12.0 - 16.0 G/DL) 10.2 L Hct (37 - 47 %) 30.4 L MCV (81.0 - 99.0 FL) 95.9 MCH (27.0 - 31.0 PG) 32.1 H MCHC (33.0 - 37.0 G/DL) 33.5 RDW (11.5 - 14.5 %) 14.8 H Plt Count (130 - 400 /CUMM) 372 MPV (7.4 - 10.4 FL) 6.9 L Gran % (42.2 - 75.2 %) 73.2 Lymphocytes % (20.5 - 51.1 %) 13.7 L Monocytes % (1.7 - 9.3 %) 8.9 Eosinophils % (0 - 5 %) 3.3 Basophils % (0.0 - 2.0 %) 0.9 Absolute Granulocytes (1.4 - 6.5 /CUMM) 7.4 H Absolute Lymphocytes (1.2 - 3.4 /CUMM) 1.4 Absolute Monocytes (0.10 - 0.60 /CUMM) 0.9 H Absolute Eosinophils (0.0 - 0.7 /CUMM) 0.3 Absolute Basophils (0.0 - 0.2 /CUMM) 0.1 Immunology Rheum Factor Semi-Quant (<12 IU/Ml) 30.2 H Last 24 Hours of Raghu Results: Blood culture March 24 negative Blood culture March 25 negative Rapid flu swab March 24 negative Urine strep pneumo antigen and Legionella antigen March 24 negative Blood cultures March 26 negative Blood cultures March 28 negative Urine culture March 28 negative Left pleural fluid culture March 29 negative Diagnostic Data Recent Imaging Findings: Chest x-ray April 01 reveals opacification of the left hemithorax compatible with a large effusion CT of the chest March 30 reveals persistent mucus plugging of the left lung bronchi with complete collapse of the left lung, which is surrounded by moderate to large loculated pleural effusion; small right pleural effusion and atelectasis in the right lower lobe Assessment/Plan Assessment/Plan Impression: This is an 86-year-old woman with a history of dementia, atrial fibrillation, maintained on Xarelto, DVT of the left leg, pulmonary emboli, peripheral vascular disease, status post right AKA and amputation of the left great toe, rheumatoid arthritis, maintained on prednisone, and diastolic congestive heart failure admitted on March 24 with a productive cough, increased lethargy, generalized aches and pains and increased combativeness for several days, found to be afebrile with a mild leukocytosis, likely secondary to dehydration, with a chest x-ray revealing a density at the left lung base and a left pleural effusion, confirmed on CT scan, status post left thoracentesis 5 days after admission revealing an exudative effusion, for which a pigtail catheter has been placed. The etiology of her parapneumonic effusion is unclear. She may have a pneumonia , possibly secondary to aspiration, with poor dentition, but the possibility of a rheumatoid effusion, related to her arthritis, has been considered, with the pleural fluid rheumatoid factor pending. Her pleural effusion appears to be complicated and suspect that she will require further intervention, either with repositioning or replacement of the current catheter and/or lytic therapy. Her antibiotics can be continued, but they should be able to be narrowed. The etiology of her left upper extremity edema is unclear, and possibilities include a DVT, though unlikely on anticoagulation, a hematoma or infiltration from an IV. Suggestion: 1. Doppler/ultrasound of the left upper extremity 2. Further management of her left pleural effusion per Pulmonary 3. Thoracic surgery evaluation 4. Follow-up pleural fluid rheumatoid factor 5. Elevation and warm compresses to the left upper extremity 6. Discontinue Vancomycin and Ceftazidime 7. Begin Ceftriaxone 1 g IV every 24 hours Consult Acknowledgment - Thank you for your consult request.
[2017-04-01 22:00] VITALS: BP 104/68
--- NOTE | 2017-04-01 22:20 | ULTRASOUND REPORT ---
EXAMINATION: DOPPLER VENOUS ULTRASOUND UPPER EXTREMITY, LEFT CLINICAL INFORMATION: Left upper extremity edema and discoloration. COMPARISON: None. TECHNIQUE: Grayscale, Doppler and spectral analysis of the upper extremity and neck was performed. FINDINGS: There is no evidence for a deep venous thrombosis within the visualized upper extremity and neck veins. There is normal flow, compression and augmentation. IMPRESSION: Unremarkable examination. Specifically, no evidence for DVT.
[2017-04-02 06:00] VITALS: BP 118/60
--- NOTE | 2017-04-02 07:44 | PN- Housestaff ---
See Addendum Subjective Follow-up For: pleural effusion Tele-Events Since Last Visit: afib, 80-120 Subjective: No overnight events. She is refusing most medications and medical interventions. Today, we will have a goals of care meeting with the fmandre. Breathing is not good. Chest tube at 1200mL today (200mL in 24 hours). Review of Systems Constitutional: Reports: no symptoms. EENTM: Reports: no symptoms. Cardiovascular: Reports: no symptoms. Respiratory: Reports: see HPI. Gastrointestinal: Reports: no symptoms. Genitourinary: Reports: no symptoms. Musculoskeletal: Reports: no symptoms. Skin: Reports: no symptoms. Neurological/Psychological: Reports: no symptoms. Hematologic/Endocrine: Reports: no symptoms. Immunologic/Allergic: Reports: no symptoms. Objective Last 24 Hrs of Vital Signs/I&O Vital Signs Date Time Temp Pulse Resp B/P B/P Pulse O2 O2 Flow FiO2 Mean Ox Delivery Rate 04/02 0638 127 128/78 04/02 0600 97.4 116 20 118/60 92 Nasal 2.0L Cannula 04/02 0000 Nasal 2.0L Cannula 04/01 2200 97.7 116 18 104/68 92 Nasal 2.0L Cannula 04/01 1424 97.5 120 20 94 Nasal 2.0L Cannula 04/01 1348 117 106/80 04/01 1346 117 106/80 04/01 0814 109 20 04/01 0800 Nasal 2.0L Cannula Intake & Output 04/02 0800 04/02 0000 04/01 1600 Intake Total 205 1215 Output Total 180 Balance 205 1035 Intake, IV 85 855 Intake, Oral 120 360 Output, Chest 80 Tube Drainage Output, Urine 100 Physical Exam General Appearance: Alert, Oriented X3, No Acute Distress Cardiovascular: irregular Lungs: moderate crackles Abdomen: Normal Bowel Sounds, Soft, No Tenderness Extremities: No Edema Current Medications: Current Medications Sig/Julio Start time Last Medication Dose Route Stop Time Status Admin Acetaminophen 1,000 MG Q6P PRN 03/24 1945 AC 03/30 IV 1342 Albuterol Sulfate 3 ML Q4-PRN PRN 03/28 2345 AC INH Atorvastatin Calcium 10 MG 1700 03/25 1700 AC 04/01 PO 1627 Bisacodyl 5 MG DAILY NEEDED PRN 03/26 0745 AC 03/26 PO 0955 Bisacodyl 10 MG DAILY NEEDED PRN 03/26 0745 AC 03/26 NE 1759 Ceftazidime 1,000 MG Q12H 03/28 1600 DC 04/01 IV 0451 Ceftriaxone Sodium 1,000 MG DAILY 04/02 1000 AC IV Dextrose/Lactated 1,000 ML Q13H 04/01 1630 AC 04/01 Ringer's IV 1833 Diltiazem HCl 30 MG Q8 03/30 1400 AC 04/02 PO 0638 Haloperidol 0.5 MG ONCE ONE 04/01 1115 DC 04/01 IM 04/01 1116 1122 Insulin Aspart 0 TIDAC 03/25 1700 AC 04/01 SC 1820 Magnesium Chloride 64 MG BID 04/01 1008 DC 04/01 PO 04/01 2201 2054 Naproxen 250 MG BID 04/01 1013 AC 04/01 PO 1219 Omeprazole 40 MG DAILY AC 04/01 1052 AC 04/01 PO 1348 Phosphate 250 MG PC AND AT BEDTIME 04/01 1300 AC 04/01 PO 1630 Potassium Phosphate 15 mMol ONE ONE 04/01 0930 AL 04/01 Dextrose/Water 250 ML IV 04/01 1334 1040 Prednisone 2.5 MG DAILY 03/26 1649 AC 04/01 PO 1219 Quetiapine Fumarate 12.5 MG AT BEDTIME 03/31 2200 AC PO Rivaroxaban 15 MG 1700 03/30 1700 AC 04/01 PO 1627 Senna/Docusate Sodium 2 TAB DAILY PRN 03/25 1815 AC 03/26 PO 0955 Sodium Chloride 1,000 ML Q20H 03/29 0915 AL 04/01 IV 0931 Vancomycin HCl 1,000 MG DAILY@1700 03/28 1700 AL 03/31 Dextrose/Water 250 ML IV 1556 Last 24 Hrs of Lab/Raghu Results Last 24 Hrs of Labs/Mics: Laboratory Tests 04/02/17 0610: Sodium Pending, Potassium Pending, Chloride Pending, Carbon Dioxide Pending, Anion Gap Pending, BUN Pending, Creatinine Pending, BUN/Creatinine Ratio Pending , Phosphorus Pending, Magnesium Pending, CBC w Diff Pending, WBC Pending, RBC Pending, Hgb Pending, Hct Pending, MCV Pending, MCH Pending, MCHC Pending, RDW Pending, Plt Count Pending, MPV Pending Assessment/Plan Assessment: 86 y old female with a PMH of dementia, A. fib on Xeralto, peripheral artery disease, chronic diastolic heart failure, rheumatoid arthritis, diabetes mellitus who presents to [facility] ED with her family very confused and not able to provide history. Problem List: 1. Partially loculated pleural effusion status post drainage with Pleurx catheter placement 2. Community-acquired pneumonia 3. Acute kidney injury 4. Delirium 5. Atrial fibrillation with rapid ventricular rate #Partially loculated pleural effusion status post drainage: The patient came in with productive cough, confusion, and shortness of breath. She is found to have a moderate to large partially loculated pleural effusion on CT scan. Cultures were negative. He was started on ceftriaxone and azithromycin. IR and pulm decided not to drain the effusion on 03/26/17. TTE showed EF 60-65% and RV pressure 35 mmHg. She subsequently decompensated with desaturation and fever and was transferred to the ICU on 03/28/2017. Antibiotics were upgraded to vancomycin and ceftazidine. Repeat imaging revealed that the pleural effusion was enlarged with complete opacification of left hemithorax and a new mild rightward shift of the mediastinum. On 03/29/2017, IR performed ultrasound-guided thoracocentesis draining 500 mL of fluid and inserting a Pleurx catheter. Fluid analysis subsequently revealed it to be exudative. Cytology showed lymphocytes, neutrophils, rare histiocytes and red blood cells but features of malignancy were not identified. 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 Repeat imaging on 03/30/2017 did not show significant improvement. IR readjusted the pigtail catheter at the bedside and improved the drainage. The Pleurx catheter has since drained approximately 1200 mL additional fluid ( 200mL in 24H). Her respiratory status has since stabilized and her mental status is improved as well. However, CXR showing no improvement in size of effusion. Prognosis is guarded. Pulmonology does not believe that the effusion will ever be fully cured. She is refusing many medications and medical interventions. We' ll be having a family meeting today regarding goals of care. -Appreciate pulmonology recommendations -Appreciate cardiology recommendations -Continue ceftriaxone -Follow cultures: Pleural fluid shows no growth -Appreciate ID recommendations -Continue naproxen -f/u pleural fluid RF #Atrial fibrillation with rapid ventricular rate: Her rates have been elevated. She has also had some intermittent hypotension. Her rates overnight were 80-120. She is intermittently refusing diltiazem making it difficult to control her rates. -Diltiazem 30 mg every 8 hours #Acute kidney injury: Patient presented with creatinine 1.4. Baseline is 1.0. Likely prerenal azotemia in the setting of infection. Resolved. -Avoid nephrotoxic medications #Constipation: Abdominal x-ray shows moderate amount of stool. Last bowel movement was March 22 -Bisacodyl when necessary -Senna when necessary #Chronic medical problems: -Continue home atorvastatin, insulin, prednisone, rivaroxaban DVT prophylaxis with rivaroxaban Heart healthy diet, puree, nectar thick DNR/DNI Problem List: 1. Pleural effusion Pain Ratin Pain Location: no pain Pain Goal: Remain pain free Pain Plan: see a/p Tomorrow's Labs & Rationales: cbc bep
[2017-04-02 07:53] LABS: ABSOLUTE BASOPHIL COUNT 0 /CUMM (0.0-0.2); ABSOLUTE EOSINOPHIL COUNT 0.4 /CUMM (0.0-0.7); ABSOLUTE GRANULOCYTE CT 7.7 /CUMM (1.4-6.5); ABSOLUTE LYMPH COUNT 1.2 /CUMM (1.2-3.4); BASOPHIL % 0.4 % (0.0-2.0); EOSINOPHIL % 3.8 % (0-5); GRANULOCYTE % 75.2 % (42.2-75.2); HEMATOCRIT 30.4 % (37-47); MEAN CORPUSCULAR HGB 32.1 PG (27.0-31.0); MEAN CORPUSCULAR HGB CONC 33.8 G/DL (33.0-37.0); MEAN CORPUSCULAR VOLUME 95.2 FL (81.0-99.0); MEAN PLATELET VOLUME 6.8 FL (7.4-10.4); PLATELET COUNT 406 /CUMM (130-400); RBC DISTRIBUTION WIDTH 14.8 % (11.5-14.5); RED BLOOD CELL CT 3.19 /CUMM (4.20-5.40); WHITE BLOOD CELL COUNT 10.3 /CUMM (4.8-10.8)
--- NOTE | 2017-04-02 11:35 | PN- Infect Dx ---
Subjective Subjective: Afebrile without complaints Objective Last 24 Hrs of Vital Signs/I&O Vital Signs Date Time Temp Pulse Resp B/P B/P Pulse O2 O2 Flow FiO2 Mean Ox Delivery Rate 04/02 0638 127 128/78 04/02 0600 97.4 116 20 118/60 92 Nasal 2.0L Cannula 04/02 0000 Nasal 2.0L Cannula 04/01 2200 97.7 116 18 104/68 92 Nasal 2.0L Cannula 04/01 1424 97.5 120 20 94 Nasal 2.0L Cannula 04/01 1348 117 106/80 04/01 1346 117 106/80 Intake & Output 04/02 1600 04/02 0800 04/02 0000 Intake Total 525 205 Output Total 100 Balance 425 205 Intake, IV 525 85 Intake, Oral 120 Output, Chest 100 Tube Drainage Physical Exam Other Physical Findings: She appears comfortable in no acute distress Lungs decreased breath sounds at the left base; pigtail catheter on the left with 80 mL output yesterday and 100 mL overnight Heart regular rhythm with no murmur Extremities persistent, though decreased, left upper extremity edema; mild edema of the left lower extremity, slightly tender to palpation, with no erythema Results Last 24 Hours of Lab Results: Laboratory Tests 04/02 609 Chemistry Sodium (137 - 145 mmol/L) 146 H Potassium (3.5 - 5.1 mmol/L) 3.5 Chloride (98 - 107 mmol/L) 113 H Carbon Dioxide (22 - 30 mmol/L) 20 L Anion Gap (5 - 16) 13 BUN (7 - 17 mg/dL) 10 Creatinine (0.5 - 1.0 mg/dL) 0.7 Estimated GFR (>60 ml/min) > 60 BUN/Creatinine Ratio (7 - 25 %) 14.3 Phosphorus (2.5 - 4.5 mg/dL) 2.6 Magnesium (1.6 - 2.3 mg/dL) 1.6 Hematology CBC w Diff NO MAN DIFF REQ WBC (4.8 - 10.8 /CUMM) 10.3 RBC (4.20 - 5.40 /CUMM) 3.19 L Hgb (12.0 - 16.0 G/DL) 10.3 L Hct (37 - 47 %) 30.4 L MCV (81.0 - 99.0 FL) 95.2 MCH (27.0 - 31.0 PG) 32.1 H MCHC (33.0 - 37.0 G/DL) 33.8 RDW (11.5 - 14.5 %) 14.8 H Plt Count (130 - 400 /CUMM) 406 H MPV (7.4 - 10.4 FL) 6.8 L Gran % (42.2 - 75.2 %) 75.2 Lymphocytes % (20.5 - 51.1 %) 11.3 L Monocytes % (1.7 - 9.3 %) 9.3 Eosinophils % (0 - 5 %) 3.8 Basophils % (0.0 - 2.0 %) 0.4 Absolute Granulocytes (1.4 - 6.5 /CUMM) 7.7 H Absolute Lymphocytes (1.2 - 3.4 /CUMM) 1.2 Absolute Monocytes (0.10 - 0.60 /CUMM) 1.0 H Absolute Eosinophils (0.0 - 0.7 /CUMM) 0.4 Absolute Basophils (0.0 - 0.2 /CUMM) 0 Last 24 Hours of Raghu Results: No new cultures Recent Imaging Studies: Doppler of the left upper extremity negative for DVT Assessment/Plan Impression: Stable, with temperatures and white blood cell count remaining normal, now on Ceftriaxone, Day 9 of treatment for a possible left lower lobe pneumonia, complicated by a complex parapneumonic effusion, for which a pigtail catheter remains in place. She has continued to drain from the catheter, with further management if/when the drainage stops (for example lytics or adjustment of the catheter) per Pulmonary. Her left upper extremity edema has improved and was likely secondary to an IV phlebitis. Suggestion: 1. Further management of her left pleural effusion per Pulmonary 2. Follow-up pleural fluid rheumatoid factor 3. Elevation and warm compresses to the left upper extremity 4. Continue Ceftriaxone
--- NOTE | 2017-04-02 11:58 | PN- Cardiology ---
Subjective Subjective: Resting comfortably. Mental status at baseline. Objective Vital Signs and I&Os Vital Signs Date Time Temp Pulse Resp B/P B/P Pulse O2 O2 Flow FiO2 Mean Ox Delivery Rate 04/02 0638 127 128/78 04/02 0600 97.4 116 20 118/60 92 Nasal 2.0L Cannula 04/02 0000 Nasal 2.0L Cannula 04/01 2200 97.7 116 18 104/68 92 Nasal 2.0L Cannula 04/01 1424 97.5 120 20 94 Nasal 2.0L Cannula 04/01 1348 117 106/80 04/01 1346 117 106/80 Intake & Output 04/02 1600 04/02 0800 04/02 0000 04/01 1600 04/01 0800 04/01 0000 Intake Total 238 179 0319 600 600 Output Total 100 180 300 900 Balance 100 995 8786 300 -300 Intake, IV 525 85 855 600 600 Intake, Oral 120 360 0 0 Number 0 0 Bowel Movements Output, Chest 100 80 900 Tube Drainage Output, Urine 100 300 Physical Exam: General: Awake but confused Eyes: No obvious scleral icterus. HEENT: No jugular venous distention or abnormal jugular venous pulsations. Cardiovascular: Normal intensity S1/S2. Irregular tachycardia Respiratory: Decreased air entry on the left; status post pigtail catheter Abdomen: Soft Skin: Warm Current Medications: Current Medications Sig/Julio Start time Last Medication Dose Route Stop Time Status Admin Acetaminophen 1,000 MG Q6P PRN 03/24 1945 AC 03/30 IV 1342 Albuterol Sulfate 3 ML Q4-PRN PRN 03/28 2345 AC INH Atorvastatin Calcium 10 MG 1700 03/25 1700 AC 04/01 PO 1627 Bisacodyl 5 MG DAILY NEEDED PRN 03/26 0745 AC 03/26 PO 0955 Bisacodyl 10 MG DAILY NEEDED PRN 03/26 0745 AC 03/26 MD 1759 Ceftazidime 1,000 MG Q12H 03/28 1600 DC 04/01 IV 0451 Ceftriaxone Sodium 1,000 MG DAILY 04/02 1000 AC 04/02 IV 0826 Dextrose/Lactated 1,000 ML Q13H 04/01 1630 DC 04/01 Ringer's IV 1833 Diltiazem HCl 30 MG Q8 03/30 1400 AC 04/02 PO 0638 Furosemide 40 MG DAILY 04/02 1000 CAN PO Furosemide 40 MG ONCE ONE 04/02 0800 DC IV 04/02 0801 Furosemide 20 MG ONCE ONE 04/02 0800 DC IV 04/02 0801 Haloperidol 0.5 MG AT BEDTIME 04/02 2200 AC IM Insulin Aspart 0 TIDAC 03/25 1700 AC 04/02 SC 0827 Magnesium Chloride 64 MG BID 04/01 1008 DC 04/01 PO 04/01 220 2054 Naproxen 250 MG BID 04/01 1013 AC 04/02 PO 0827 Omeprazole 40 MG DAILY AC 04/01 1052 AC 04/01 PO 1348 Phosphate 250 MG PC AND AT BEDTIME 04/01 1300 AC 04/02 PO 0826 Potassium Phosphate 15 mMol ONE ONE 04/01 0930 DC 04/01 Dextrose/Water 250 ML IV 04/01 1334 1040 Prednisone 2.5 MG DAILY 03/26 1649 AC 04/02 PO 0826 Quetiapine Fumarate 12.5 MG AT BEDTIME 03/31 2200 DC PO Rivaroxaban 15 MG 1700 03/30 1700 AC 04/01 PO 1627 Senna/Docusate Sodium 2 TAB DAILY PRN 03/25 1815 AC 03/26 PO 0955 Sodium Chloride 1,000 ML Q20H 03/29 0915 DC 04/01 IV 0931 Vancomycin HCl 1,000 MG DAILY@1700 03/28 1700 DC 03/31 Dextrose/Water 250 ML IV 1556 Results Last 48 Hrs of Labs/Mics: Laboratory Tests 04/02/17 0610: Anion Gap 13, Estimated GFR > 60, BUN/Creatinine Ratio 14.3, Phosphorus 2.6, Magnesium 1.6, CBC w Diff NO MAN DIFF REQ, RBC 3.19 L, MCV 95.2, MCH 32.1 H, MCHC 33.8, RDW 14.8 H, MPV 6.8 L, Gran % 75.2, Lymphocytes % 11.3 L, Monocytes % 9.3, Eosinophils % 3.8, Basophils % 0.4, Absolute Granulocytes 7.7 H, Absolute Lymphocytes 1.2, Absolute Monocytes 1.0 H, Absolute Eosinophils 0.4 , Absolute Basophils 0 04/01/17 0707: Anion Gap 13, Estimated GFR > 60, BUN/Creatinine Ratio 20.0, Phosphorus 1.9 L, Magnesium 1.6, CBC w Diff NO MAN DIFF REQ, RBC 3.17 L, MCV 95.9, MCH 32.1 H, MCHC 33.5, RDW 14.8 H, MPV 6.9 L, Gran % 73.2, Lymphocytes % 13.7 L, Monocytes % 8.9, Eosinophils % 3.3, Basophils % 0.9, Absolute Granulocytes 7.4 H, Absolute Lymphocytes 1.4, Absolute Monocytes 0.9 H, Absolute Eosinophils 0.3 , Absolute Basophils 0.1, Rheum Factor Semi-Quant 30.2 H Recent Imaging Studies: Telemetry tracings were personally reviewed and show atrial fibrillation with some periods of tachycardia Assessment/Plan Assessment/Plan 1 Community acquired pneumonia in the left lower lobe and partially loculated left pleural effusion s/p pigtail catheter 2. Atrial fibrillation persisted and chronic rate control strategy 3. On oral anticoagulation with Xarelto 4. Dementia 5. History of pulmonary embolism and deep vein thrombosis 6. Chronic diastolic congestive heart failure. No acute CHF at this time 7. Left bundle branch block 8. Hypertension 9. 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 Diabetes mellitus 11. Rheumatoid arthritis Some tachycardia noted on telemetry which is due to the patient refusing many of her Cardizem doses. Can consider switching the Cardizem to 120 mg extended release form as this may be easier for her to tolerate. Can also resume her beta hossein at 12.5 mg by mouth daily extended release form. Neftali Duggan MD [facility] Continue telemetry? Yes
--- NOTE | 2017-04-02 14:27 | PN- Pulmonary ---
Subjective HPI/Critical Care Issues: Patient seen and examined this morning. Her chest tube output is about 200 over 24-hour period. Objective Current Medications: Current Medications Sig/Julio Start time Last Medication Dose Route Stop Time Status Admin Acetaminophen 1,000 MG Q6P PRN 03/24 1945 AC 03/30 IV 1342 Albuterol Sulfate 3 ML Q4-PRN PRN 03/28 2345 AC INH Atorvastatin Calcium 10 MG 1700 03/25 1700 AC 04/01 PO 1627 Bisacodyl 5 MG DAILY NEEDED PRN 03/26 0745 03/26 PO 0955 Bisacodyl 10 MG DAILY NEEDED PRN 03/26 0745 AC 03/26 OH 1759 Ceftazidime 1,000 MG Q12H 03/28 1600 DC 04/01 IV 0451 Ceftriaxone Sodium 1,000 MG DAILY 04/02 1000 AC 04/02 IV 0826 Dextrose/Lactated 1,000 ML Q13H 04/01 1630 DC 04/01 Ringer's IV 1833 Diltiazem HCl 30 MG Q8 03/30 1400 AC 04/02 PO 1305 Furosemide 40 MG DAILY 04/02 1000 CAN PO Furosemide 40 MG ONCE ONE 04/02 0800 DC IV 04/02 0801 Furosemide 20 MG ONCE ONE 04/02 0800 DC 04/02 IV 04/02 0801 1306 Haloperidol 0.5 MG AT BEDTIME 04/02 2200 AC IM Insulin Aspart 0 TIDAC 03/25 1700 AC 04/02 SC 0827 Magnesium Chloride 64 MG BID 04/01 1008 DC 04/01 PO 04/01 220 2054 Naproxen 250 MG BID 04/01 1013 AC 04/02 PO 0827 Omeprazole 40 MG DAILY AC 04/01 1052 AC 04/01 PO 1348 Phosphate 250 MG PC AND AT BEDTIME 04/01 1300 AC 04/02 PO 1305 Prednisone 2.5 MG DAILY 03/26 1649 AC 04/02 PO 0826 Quetiapine Fumarate 12.5 MG AT BEDTIME 03/31 2200 DC PO Rivaroxaban 15 MG 1700 03/30 1700 AC 04/01 PO 1627 Senna/Docusate Sodium 2 TAB DAILY PRN 03/25 1815 AC 03/26 PO 0955 Vancomycin HCl 1,000 MG DAILY@1700 03/28 1700 DC 03/31 Dextrose/Water 250 ML IV 1556 Vital Signs & I&O Last 24 Hrs of Vitals and I&O: Vital Signs Date Time Temp Pulse Resp B/P B/P Pulse O2 O2 Flow FiO2 Mean Ox Delivery Rate 04/02 1305 127 128/78 04/02 0830 Nasal 2.0L Cannula 04/02 0638 127 128/78 04/02 0600 97.4 116 20 118/60 92 Nasal 2.0L Cannula 04/02 0000 Nasal 2.0L Cannula 04/01 2200 97.7 116 18 104/68 92 Nasal 2.0L Cannula Intake & Output 04/02 1600 04/02 0800 04/02 0000 Intake Total 600 525 205 Output Total 100 100 Balance 500 425 205 Intake, IV 400 525 85 Intake, Oral 200 120 Output, Chest 100 100 Tube Drainage Exam Other Physical Findings: Generally - Awake, confused Head and neck - normocephalic, atraumatic, EOMI grossly intact Cardiovascular - S1, S2, systolic murmur Lungs -rare rhonchi with diminished breath sounds at the bases Abdomen - Bowel sounds positive, soft, non-tender Extremities - without edema, hx bka Results Last 24 Hrs of Lab Results: Laboratory Tests 04/02/17 0610: Anion Gap 13, Estimated GFR > 60, BUN/Creatinine Ratio 14.3, Phosphorus 2.6, Magnesium 1.6, CBC w Diff NO MAN DIFF REQ, RBC 3.19 L, MCV 95.2, MCH 32.1 H, MCHC 33.8, RDW 14.8 H, MPV 6.8 L, Gran % 75.2, Lymphocytes % 11.3 L, Monocytes % 9.3, Eosinophils % 3.8, Basophils % 0.4, Absolute Granulocytes 7.7 H, Absolute Lymphocytes 1.2, Absolute Monocytes 1.0 H, Absolute Eosinophils 0.4 , Absolute Basophils 0 Impression/Plan Impression/Plan Impression/Plan: Impression 86 year old woman * partially loculated pleural effusion -significantly enlarged with mediastinal shift * community acquired pneumonia left side * a.fib on xarelto * ROBINSON improved * Delirium Plan -s/p pigtail catheter, pulled back by IR -cont abx -f/u pleural studies -d/w family -f/u cardiology goals of care - plan for drainage from chest tube, once less than 100/24 hr period can consider to discontinue as long as the family is in agreement and understand a conservative approach. From 03/30 Discussed goals of care. She is DNR/DNI. She has significant atelectasis, pleural effusion and mucous plugging. Bronchoscopy, surgical procedures, etc can be more harmful than beneficial and family would not want to pursue this, which is very reasonable. Additionally tPA administration for lytic purposes would not assist in aeration given other pulmonary issues discussed above and may carry an unreasonable bleeding risk. At this time we will downgrade the patient to telemetry with drainage of the chest tube. We will continue to have discussions with the family regarding longevity of the tube and they are in understanding that the pulmonary process may not be resolved, the goals would be to ensure that she has minimal symptoms during this disease process. DVT prophylaxis at all times DNR/DNI
[2017-04-02 15:12] VITALS: BP 122/76
[2017-04-02 23:00] VITALS: BP 130/78
[2017-04-03 06:01] VITALS: BP 124/75
--- NOTE | 2017-04-03 08:58 | PN- Housestaff ---
Jose May 04/03/17 0857: Subjective Follow-up For: plural effusion afib low oral intake Tele-Events Since Last Visit: afib 92-117 Subjective: I have seen and examined the patient. She has poor oral intake . no oriented and wants to leave her rest. still hypernatremic Review of Systems Constitutional: Reports: see HPI. Objective Last 24 Hrs of Vital Signs/I&O Vital Signs Date Time Temp Pulse Resp B/P B/P Pulse O2 O2 Flow FiO2 Mean Ox Delivery Rate 04/03 0821 122 124/75 04/03 0800 Nasal 2.0L Cannula 04/03 0601 98.0 122 20 124/75 92 Nasal Cannula 04/03 0000 Room Air Room Air 04/02 2300 98.3 120 20 130/78 95 Nasal 2.0L Cannula 04/02 1641 130 122/76 04/02 1512 97.9 130 20 122/76 95 Nasal 2.0L Cannula Intake & Output 04/03 1600 04/03 0800 04/03 0000 Intake Total 0 10.125 Output Total 30 Balance -30 10.125 Intake, IV 10.125 Intake, Oral 0 0 Output, Chest 30 Tube Drainage Physical Exam General Appearance: No Acute Distress Cardiovascular: irrigular Lungs: decreased breath sounds BL Extremities: +1 right leg edema Assessment/Plan Assessment: 86 y old female with a PMH of dementia, A. fib on Xeralto, peripheral artery disease, chronic diastolic heart failure, rheumatoid arthritis, diabetes mellitus who presents to [place] ED with her family very confused and not able to provide history. Assessment and plan #Partially loculated pleural effusion status post drainage: The patient came in with productive cough, confusion, and shortness of breath. She is found to have a moderate to large partially loculated pleural effusion on CT scan. Cultures were negative. He was started on ceftriaxone and azithromycin. IR and pulm decided not to drain the effusion on 03/26/17. TTE showed EF 60-65% and RV pressure 35 mmHg. She subsequently decompensated with desaturation and fever and was transferred to the ICU on 03/28/2017. Antibiotics were upgraded to vancomycin and ceftazidine. Repeat imaging revealed that the pleural effusion was enlarged with complete opacification of left hemithorax and a new mild rightward shift of the mediastinum. On 03/29/2017, IR performed ultrasound-guided thoracocentesis draining 500 mL of fluid and inserting a Pleurx catheter. Fluid analysis subsequently revealed it to be exudative. Cytology showed lymphocytes, neutrophils, rare histiocytes and red blood cells but features of malignancy were not identified. 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 Repeat imaging on 03/30/2017 did not show significant improvement. IR readjusted the pigtail catheter at the bedside and improved the drainage. The Pleurx catheter has since drained approximately 1200 mL additional fluid ( 200mL in 24H). Her respiratory status has since stabilized and her mental status is improved as well. However, CXR showing no improvement in size of effusion. Prognosis is guarded. Pulmonology does not believe that the effusion will ever be fully cured. She is refusing many medications and medical interventions. We' ll be having a family meeting today regarding goals of care. -Appreciate pulmonology recommendations -Appreciate cardiology recommendations -Continue ceftriaxone -Follow cultures: Pleural fluid shows no growth -Appreciate ID recommendations -Continue naproxen -Drainage of fluid about 150 mL today -f/u pleural fluid RF #Atrial fibrillation with rapid ventricular rate: -The heart rate elevated due to noncompliance and not getting the medication -Continue metoprolol and Cardizem in the same dosage for now #Oral intake with elevated sodium and chloride/ low K -we put the pateint on dextrose with KCl 20 mql -oral k was also ordered #Chronic medical problems: -Continue home atorvastatin, insulin, prednisone, rivaroxaban DVT prophylaxis with rivaroxaban Heart healthy diet, puree, nectar thick DNR/DNI Problem List: 1. Atrial fibrillation Pain Ratin Pain Location: N/A Pain Goal: Pain 4 or less Pain Plan: same Tomorrow's Labs & Rationales: cbc bep BotelloJayson reinosoboris 04/03/17 1631: Attending MD Review Statement Attending Statement Attending MD Statement: examined this patient, discuss w/resident/PA/CLASP MACHINE OPERATOR, agreed w/resident/PA/CLASP MACHINE OPERATOR, reviewed EMR data (avail), discussed with nursing Attending Assessment/Plan: loculated complicated Pleural effusion s/p pigtail catheter placement- drained 100cc this am. f/u on pulmonary recommendations. Hypernatremia- give her d5w 1 liter and see how she does. dw/ pt the care plan. Hypokalemia- added potassium to D5w. recheck in am .
--- NOTE | 2017-04-03 10:17 | PN- Pulmonary ---
Subjective HPI/Critical Care Issues: Patient remains weak with left chest drain in place. She drained 200 mL yesterday. Objective Current Medications: Current Medications Sig/Julio Start time Last Medication Dose Route Stop Time Status Admin Acetaminophen 1,000 MG Q6P PRN 03/24 1945 AC 03/30 IV 1342 Albuterol Sulfate 3 ML Q4-PRN PRN 03/28 2345 AC INH Atorvastatin Calcium 10 MG 1700 03/25 1700 AC 04/01 PO 1627 Bisacodyl 5 MG DAILY NEEDED PRN 03/26 0745 AC 03/26 PO 0955 Bisacodyl 10 MG DAILY NEEDED PRN 03/26 0745 AC 03/26 SD 1759 Ceftriaxone Sodium 1,000 MG DAILY 04/02 1000 AC 04/03 IV 0822 Diltiazem HCl 30 MG Q8 03/30 1400 AC 04/03 PO 0532 Haloperidol 0.5 MG AT BEDTIME 04/02 2200 CAN IM Insulin Aspart 0 TIDAC 03/25 1700 AC 04/02 SC 0827 Lorazepam 0.25 MG AT BEDTIME 04/02 2200 AC 04/02 IV 2113 Metoprolol Succinate 12.5 MG DAILY 04/02 1505 AC 04/03 PO 0821 Naproxen 250 MG BID 04/01 1013 AC 04/03 PO 0822 Omeprazole 40 MG DAILY AC 04/01 1052 AC 04/01 PO 1348 Phosphate 250 MG PC AND AT BEDTIME 04/01 1300 AC 04/03 PO 0734 Prednisone 2.5 MG DAILY 03/26 1649 AC 04/03 PO 0822 Rivaroxaban 15 MG 1700 03/30 1700 AC 04/01 PO 1627 Senna/Docusate Sodium 2 TAB DAILY PRN 03/25 1815 AC 03/26 PO 0955 Vital Signs & I&O Last 24 Hrs of Vitals and I&O: Vital Signs Date Time Temp Pulse Resp B/P B/P Pulse O2 O2 Flow FiO2 Mean Ox Delivery Rate 04/03 0821 122 124/75 04/03 0800 Nasal 2.0L Cannula 04/03 0601 98.0 122 20 124/75 92 Nasal Cannula 04/03 0000 Room Air Room Air 04/02 2300 98.3 120 20 130/78 95 Nasal 2.0L Cannula 04/02 1641 130 122/76 04/02 1512 97.9 130 20 122/76 95 Nasal 2.0L Cannula 04/02 1305 127 128/78 Intake & Output 04/03 1600 04/03 0800 04/03 0000 Intake Total 0 10.125 Output Total 30 Balance -30 10.125 Intake, IV 10.125 Intake, Oral 0 0 Output, Chest 30 Tube Drainage Since saturation 2 L 92% exam for chest shows markedly diminished breath sounds over the left posterior chest cardiac exam shows a regular S1 and S2 without murmurs Impression/Plan Impression/Plan Impression/Plan: 86-year-old woman with chronic pleural effusion status post pigtail catheter placement and treatment with antibiotics. Recommendations: Continue chest tube today drainage. Complete course of antibiotics.
[2017-04-03 10:18] LABS: ABSOLUTE BASOPHIL COUNT 0 /CUMM (0.0-0.2); MEAN PLATELET VOLUME 7.3 FL (7.4-10.4); RBC DISTRIBUTION WIDTH 15.3 % (11.5-14.5)
[2017-04-03 10:23] LABS: ABSOLUTE EOSINOPHIL COUNT 0.3 /CUMM (0.0-0.7); ABSOLUTE GRANULOCYTE CT 8.5 /CUMM (1.4-6.5); ABSOLUTE LYMPH COUNT 1.3 /CUMM (1.2-3.4); ABSOLUTE MONOCYTE COUNT 0.9 /CUMM (0.10-0.60); BASOPHIL % 0.4 % (0.0-2.0); EOSINOPHIL % 3.1 % (0-5); GRANULOCYTE % 76.4 % (42.2-75.2); HEMATOCRIT 29.8 % (37-47); MEAN CORPUSCULAR HGB 31.9 PG (27.0-31.0); MEAN CORPUSCULAR HGB CONC 33.4 G/DL (33.0-37.0); MEAN CORPUSCULAR VOLUME 95.5 FL (81.0-99.0); PLATELET COUNT 400 /CUMM (130-400); RED BLOOD CELL CT 3.12 /CUMM (4.20-5.40)
[2017-04-03 10:47] LABS: WHITE BLOOD CELL COUNT 11.1 /CUMM (4.8-10.8)
[2017-04-03 14:20] VITALS: BP 110/60
[2017-04-03 23:21] VITALS: BP 132/74
[2017-04-04 07:00] VITALS: BP 118/76
[2017-04-04 07:53] LABS: ABSOLUTE BASOPHIL COUNT 0 /CUMM (0.0-0.2); ABSOLUTE EOSINOPHIL COUNT 0.3 /CUMM (0.0-0.7); ABSOLUTE GRANULOCYTE CT 7.9 /CUMM (1.4-6.5); ABSOLUTE LYMPH COUNT 0.7 /CUMM (1.2-3.4); ABSOLUTE MONOCYTE COUNT 0.8 /CUMM (0.10-0.60); BASOPHIL % 0.3 % (0.0-2.0); GRANULOCYTE % 80.8 % (42.2-75.2); HEMATOCRIT 28.5 % (37-47); MEAN CORPUSCULAR HGB 31.5 PG (27.0-31.0); MEAN CORPUSCULAR HGB CONC 32.9 G/DL (33.0-37.0); MEAN CORPUSCULAR VOLUME 95.7 FL (81.0-99.0); MEAN PLATELET VOLUME 6.9 FL (7.4-10.4); PLATELET COUNT 359 /CUMM (130-400); RBC DISTRIBUTION WIDTH 15.6 % (11.5-14.5); RED BLOOD CELL CT 2.98 /CUMM (4.20-5.40); WHITE BLOOD CELL COUNT 9.8 /CUMM (4.8-10.8)
--- NOTE | 2017-04-04 08:19 | PN- Housestaff ---
Jose May 04/04/17 0818: Subjective Follow-up For: Loculated pleural effusion Atrial fibrillation poor oral intake Tele-Events Since Last Visit: afib 104,115 Subjective: I have seen and examined the patient. alert and oriented times x1. inaccurate I and O in the chart, chest tube output 190 cc, BEP pending. Review of Systems Constitutional: Reports: see HPI. Objective Last 24 Hrs of Vital Signs/I&O Vital Signs Date Time Temp Pulse Resp B/P B/P Pulse O2 O2 Flow FiO2 Mean Ox Delivery Rate 04/04 0800 Nasal 2.0L Cannula 04/04 0758 107 118/76 04/04 0700 98.9 107 20 118/76 93 Nasal 2.0L Cannula 04/04 0511 107 118/76 04/04 0000 Nasal 2.0L Cannula 04/03 2321 98.9 108 22 132/74 93 Nasal 2.0L Cannula 04/03 2103 124 128/70 04/03 1437 108 110/60 04/03 1420 98.2 108 20 110/60 95 Nasal 2.0L Cannula Intake & Output 04/04 1600 04/04 0800 04/04 0000 Intake Total 100 200 Output Total 10 20 Balance 90 180 Intake, Oral 100 200 Number 1 Bowel Movements Output, Chest 10 20 Tube Drainage Physical Exam General Appearance: Alert, Cooperative, No Acute Distress Other Physical Findings: Cardiovascular: irrigular Lungs: decreased breath sounds BL abdomen non tender Extremities: +1 single leg edema, multiple ecchymotic regions in both hands, IV infiltration with swelling of the right upper extremity Assessment/Plan Assessment: 86 y old female with a PMH of dementia, A. fib on Xeralto, peripheral artery disease, chronic diastolic heart failure, rheumatoid arthritis, diabetes mellitus who presents to [facility] ED with her family very confused and not able to provide history. Assessment and plan #Partially loculated pleural effusion status post drainage: The patient came in with productive cough, confusion, and shortness of breath. She is found to have a moderate to large partially loculated pleural effusion on CT scan. Cultures were negative. He was started on ceftriaxone and azithromycin. IR and pulm decided not to drain the effusion on 03/26/17. TTE showed EF 60-65% and RV pressure 35 mmHg. She subsequently decompensated with desaturation and fever and was transferred to the ICU on 03/28/2017. Antibiotics were upgraded to vancomycin and ceftazidine. Repeat imaging revealed that the pleural effusion was enlarged with complete opacification of left hemithorax and a new mild rightward shift of the mediastinum. On 03/29/2017, IR performed ultrasound-guided thoracocentesis draining 500 mL of fluid and inserting a Pleurx catheter. Fluid analysis subsequently revealed it to be exudative. Cytology showed lymphocytes, neutrophils, rare histiocytes and red blood cells but features of malignancy were not identified. 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 Repeat imaging on 03/30/2017 did not show significant improvement. IR readjusted the pigtail catheter at the bedside and improved the drainage. The Pleurx catheter has since drained approximately 1200 mL additional fluid ( 200mL in 24H). Her respiratory status has since stabilized and her mental status is improved as well. However, CXR showing no improvement in size of effusion. Prognosis is guarded. Pulmonology does not believe that the effusion will ever be fully cured. She is refusing many medications and medical interventions. We' ll be having a family meeting today regarding goals of care. -Appreciate pulmonology recommendations -Appreciate cardiology recommendations -Continue ceftriaxone -Follow cultures: Pleural fluid shows no growth -Appreciate ID recommendations -DC naproxen -Drainage of fluid about 190 mL in 24 hours -f/u pleural fluid RF #Atrial fibrillation with rapid ventricular rate: -The heart rate elevated -Continue metoprolol and Cardizem 30 Q6 #Oral intake with elevated sodium and chloride/ low K -we put the pateint on dextrose with KCl 20 mql -oral k was also ordered yesterday -However patient IV access was infiltrated and she is not getting any fluids today -BEP labs for today are pending #Chronic medical problems: -Continue home atorvastatin, insulin, prednisone, rivaroxaban DVT prophylaxis with rivaroxaban Heart healthy diet, puree, nectar thick DNR/DNI Problem List: 1. Pleural effusion Pain Ratin Pain Location: no pain Pain Goal: Pain 4 or less Pain Plan: same Tomorrow's Labs & Rationales: cbc bep Vitor Botello 04/04/17 1526: Attending Review Statement Attending Statement Attending MD Statement: examined this patient, discuss w/resident/PA/[employer]ER, agreed w/resident/PA/[employer] INST[employer]ER, reviewed EMR data (avail), discussed with nursing Attending Assessment/Plan: loculated complicated Pleural effusion s/p pigtail catheter placement- drained 190cc yesterday. f/u on pulmonary recommendations on wednesday as to if we need to keep cathetre or remove it. Hypernatremia- started pt on D5W but iv infiltrated. encouraged pt to drink more water. Afib iwth RVR- increase cardizem to 30 q6h from 30 q8h. pt more alert and feeling better today.
--- NOTE | 2017-04-04 10:13 | PN- Pulmonary ---
Subjective HPI/Critical Care Issues: Patient is more awake and alert. Chest tube continues to drain greater than 100 mL per 24 hours. Objective Current Medications: Current Medications Sig/Julio Start time Last Medication Dose Route Stop Time Status Admin Acetaminophen 1,000 MG Q6P PRN 03/24 1945 AC 03/30 IV 1342 Albuterol Sulfate 3 ML Q4-PRN PRN 03/28 2345 AC INH Atorvastatin Calcium 10 MG 1700 03/25 1700 AC 04/03 PO 1751 Bisacodyl 5 MG DAILY NEEDED PRN 03/26 0745 AC 03/26 PO 0955 Bisacodyl 10 MG DAILY NEEDED PRN 03/26 0745 AC 03/26 [place] 1759 Ceftriaxone Sodium 1,000 MG DAILY 04/02 1000 AC 04/04 IV 0759 Diltiazem HCl 30 MG Q6 04/04 1200 AC PO Diltiazem HCl 120 MG DAILY 04/04 1015 CAN PO Diltiazem HCl 30 MG Q8 03/30 1400 DC 04/04 PO 0511 Insulin Aspart 0 TIDAC 03/25 1700 AC 04/04 SC 0940 Lorazepam 0.25 MG AT BEDTIME 04/02 2200 AC 04/03 IV 2057 Metoprolol Succinate 12.5 MG DAILY 04/02 1505 AC 04/04 PO 0758 Naproxen 250 MG BID 04/01 1013 DC 04/04 PO 0758 Omeprazole 40 MG DAILY AC 04/01 1052 AC 04/01 PO 1348 Phosphate 250 MG PC AND AT BEDTIME 04/01 1300 AC 04/04 PO 0758 Potassium Chloride 60 MEQ ONE TIME ONE 04/03 1215 DC 04/03 PO 04/03 1216 1216 Potassium Chloride 40 MEQ ONCE ONE 04/03 1100 CAN PO 04/03 1101 Potassium Chloride 20 MEQ Q20H 04/03 1100 DC 04/04 Dextrose/Water 1,000 ML IV 0930 Prednisone 2.5 MG DAILY 03/26 1649 AC 04/04 PO 0758 Rivaroxaban 15 MG 1700 03/30 1700 AC 04/03 PO 1751 Senna/Docusate Sodium 2 TAB DAILY PRN 03/25 1815 AC 03/26 PO 0955 Vital Signs & I&O Last 24 Hrs of Vitals and I&O: Vital Signs Date Time Temp Pulse Resp B/P B/P Pulse O2 O2 Flow FiO2 Mean Ox Delivery Rate 04/04 0800 Nasal 2.0L Cannula 04/04 0758 107 118/76 04/04 0700 98.9 107 20 118/76 93 Nasal 2.0L Cannula 04/04 0511 107 118/76 04/04 0000 Nasal 2.0L Cannula 04/03 2321 98.9 108 22 132/74 93 Nasal 2.0L Cannula 04/03 2103 124 128/70 04/03 1437 108 110/60 04/03 1420 98.2 108 20 110/60 95 Nasal 2.0L Cannula Intake & Output 04/04 1600 04/04 0800 04/04 0000 Intake Total 100 200 Output Total 10 20 Balance 90 180 Intake, Oral 100 200 Number 1 Bowel Movements Output, Chest 10 20 Tube Drainage Oxygen saturation 2 L 93% exam for chest continues shows diminished breath sounds over the left hemithorax cardiac exam shows a regular S1 and S2 without murmurs Impression/Plan Impression/Plan Impression/Plan: 86-year-old woman with chronic pleural effusion status post pigtail catheter placement and treatment with antibiotics. Chest tube continues to drain. Recommendations: Continue chest tube today drainage. Complete course of antibiotics. If drainage persists would need repeat CAT scan of the chest
[2017-04-04 14:18] VITALS: BP 108/70
[2017-04-04 17:16] VITALS: BP 110/64
[2017-04-05 06:35] VITALS: BP 132/78
--- NOTE | 2017-04-05 07:12 | PN- Housestaff ---
See Addendum Subjective Follow-up For: Pleural effusion Tele-Events Since Last Visit: Afib 90-130 Subjective: No overnight night events. Her condition remains stable but poor. She is not breathing well and is not oriented. She thinks she is in a school. Review of Systems Constitutional: Reports: no symptoms. EENTM: Reports: no symptoms. Cardiovascular: Reports: no symptoms. Respiratory: Reports: see HPI. Gastrointestinal: Reports: no symptoms. Genitourinary: Reports: no symptoms. Musculoskeletal: Reports: no symptoms. Skin: Reports: no symptoms. Neurological/Psychological: Reports: see HPI. Hematologic/Endocrine: Reports: no symptoms. Immunologic/Allergic: Reports: no symptoms. Objective Last 24 Hrs of Vital Signs/I&O Vital Signs Date Time Temp Pulse Resp B/P B/P Pulse O2 O2 Flow FiO2 Mean Ox Delivery Rate 04/05 0635 97.9 108 22 132/78 90 Nasal 3.0L Cannula 04/05 0451 124 132/78 04/04 2214 Nasal 2.0L Cannula 04/04 1716 97 110/64 04/04 1418 98.1 111 20 108/70 94 Nasal Cannula 04/04 1250 103 106/76 04/04 0800 Nasal 2.0L Cannula 04/04 0758 107 118/76 Intake & Output 04/05 0800 04/05 0000 04/04 1600 Intake Total 50 170 665.5 Output Total 40 110 Balance 10 60 665.5 Intake, IV 205.5 Intake, Oral 50 170 460 Number 1 Bowel Movements Output, Chest 40 110 Tube Drainage Physical Exam General Appearance: Alert, No Acute Distress Cardiovascular: irregular Lungs: crackles and poor air movement Abdomen: Normal Bowel Sounds, Soft, No Tenderness Extremities: stable Current Medications: Current Medications Sig/Julio Start time Last Medication Dose Route Stop Time Status Admin Acetaminophen 1,000 MG Q6P PRN 03/24 1945 AC 03/30 IV 1342 Albuterol Sulfate 3 ML Q4-PRN PRN 03/28 2345 AC INH Atorvastatin Calcium 10 MG 1700 03/25 1700 AC 04/03 PO 1751 Bisacodyl 5 MG DAILY NEEDED PRN 03/26 0745 AC 03/26 PO 0955 Bisacodyl 10 MG DAILY NEEDED PRN 03/26 0745 AC 03/26 PA 1759 Ceftriaxone Sodium 1,000 MG DAILY 04/02 1000 AC 04/04 IV 0759 Diltiazem HCl 30 MG Q6 04/04 1200 AC 04/05 PO 0451 Diltiazem HCl 120 MG DAILY 04/04 1015 CAN PO Diltiazem HCl 30 MG Q8 03/30 1400 DC 04/04 PO 0511 Insulin Aspart 0 TIDAC 03/25 1700 AC 04/04 SC 1251 Lorazepam 0.25 MG AT BEDTIME 04/02 2200 AC 04/03 IV 2057 Metoprolol Succinate 12.5 MG DAILY 04/02 1505 AC 04/04 PO 0758 Naproxen 250 MG BID 04/01 1013 DC 04/04 PO 0758 Omeprazole 40 MG DAILY AC 04/01 1052 AC 04/01 PO 1348 Phosphate 250 MG PC AND AT BEDTIME 04/01 1300 AC 04/04 PO 2026 Potassium Chloride 20 MEQ Q20H 04/03 1100 DC 04/04 Dextrose/Water 1,000 ML IV 0930 Prednisone 2.5 MG DAILY 03/26 1649 AC 04/04 PO 0758 Rivaroxaban 15 MG 1700 03/30 1700 AC 04/03 PO 1751 Senna/Docusate Sodium 2 TAB DAILY PRN 03/25 1815 AC 03/26 PO 0955 Assessment/Plan Assessment: 86 y old female with a PMH of dementia, A. fib on Xeralto, peripheral artery disease, chronic diastolic heart failure, rheumatoid arthritis, diabetes mellitus who presents to [place] ED with her family very confused and not able to provide history. Problem List: 1. Partially loculated, complicated parapneumonic pleural effusion 2. Community-acquired pneumonia 3. Acute kidney injury 4. Delirium 5. Atrial fibrillation with rapid ventricular rate #Partially loculated, complicated parapneumonic pleural effusion: The patient came in with productive cough, confusion, and shortness of breath. She is found to have a moderate to large partially loculated pleural effusion on CT scan. Cultures were negative. He was started on ceftriaxone and azithromycin. IR and pulm decided not to drain the effusion on 03/26/17. TTE showed EF 60-65% and RV pressure 35 mmHg. She subsequently decompensated with desaturation and fever and was transferred to the ICU on 03/28/2017. Antibiotics were upgraded to vancomycin and ceftazidine. Repeat imaging revealed that the pleural effusion was enlarged with complete opacification of left hemithorax and a new mild rightward shift of the mediastinum. On 03/29/2017, IR performed ultrasound-guided thoracocentesis draining 500 mL of fluid and inserting a Pleurx catheter. Fluid analysis subsequently revealed it to be exudative. Cytology showed lymphocytes, neutrophils, rare histiocytes and red blood cells but features of malignancy were not identified. RF less than 15.9 in pleural fluid. Repeat imaging on 2017 did not show significant improvement. IR readjusted the pigtail catheter at the bedside and improved the drainage. I suspect that the etiology of her effusion is infectious and that the cultures are not growing because she received antibiotics prior to thoracocentesis. The Pleurx catheter has since drained approximately 1750 mL additional fluid. Her respiratory status has since stabilized but is poor. Chest x-ray does now show some improvement in size of effusion. Prognosis is guarded. She is not a candidate for TPa or DNase and surgery would be very high risk for her given her age and comorbidities. ID is recommending a PICC line if she continues to have the chest tube but we'll talk to pulmonology to see how long the chest tube. -Appreciate pulmonology recommendations -Appreciate cardiology recommendations -Continue ceftriaxone -Follow cultures: Pleural fluid shows no growth -Appreciate ID recommendations #Atrial fibrillation with rapid ventricular rate: Her rates have been elevated. She has also had some intermittent hypotension. Her rates overnight were 80-120. She is intermittently refusing diltiazem making it difficult to control her rates. -Diltiazem 30 mg every 8 hours #Acute kidney injury: Patient presented with creatinine 1.4. Baseline is 1.0. Likely prerenal azotemia in the setting of infection. Resolved. -CTM #Constipation: -Bisacodyl when necessary -Senna when necessary #Chronic medical problems: -Continue home atorvastatin, insulin, prednisone, rivaroxaban DVT prophylaxis with rivaroxaban Heart healthy diet, puree, nectar thick DNR/DNI Problem List: 1. Pleural effusion Pain Ratin Pain Location: none Pain Goal: Remain pain free Pain Plan: see a/p Tomorrow's Labs & Rationales: bep
--- NOTE | 2017-04-05 09:43 | RADIOLOGY REPORT ---
EXAMINATION: XR PORTABLE CHEST CLINICAL INFORMATION: Pleural effusion and shortness of breath COMPARISON: Chest x-ray from 04/01/2017. Chest CT from 03/30/2017. TECHNIQUE: Portable frontal view of the chest was obtained. FINDINGS: Interval since the prior chest x-ray there has been improved aeration of the left lung, which is now partially visualized, previously tj out completely. There are streaky airspace and interstitial opacities within the left lung with a perihilar predominance as well as airspace opacification in the retrocardiac left lower lobe. The right lung is aerated with some interstitial markings in the perihilar and lower lung regions most notably, similar to the prior. There is a left-sided pigtail pleural catheter projecting over the left base, unchanged. A large left-sided pleural effusion with scattered small locules of air appears to have diminished in size. There is a small right pleural effusion as well. The bones are demineralized and there is a chronic deformity of the left proximal humerus, partially visualized as well as severe degenerative change of the left glenohumeral joint. No acute osseous abnormalities evident. IMPRESSION: Stable left pleural catheter. Reduction in size of the previously large left pleural effusion with improved aeration of the left lung. Persistent airspace and interstitial opacification in the left greater than right lung.
--- NOTE | 2017-04-05 11:38 | PN- Cardiology ---
Subjective Subjective: Patient appears comfortable. Mental status remains at baseline. Objective Vital Signs and I&Os Vital Signs Date Time Temp Pulse Resp B/P B/P Pulse O2 O2 Flow FiO2 Mean Ox Delivery Rate 04/05 1037 108 132/78 04/05 0930 Nasal 2.0L Cannula 04/05 0635 97.9 108 22 132/78 90 Nasal 3.0L Cannula 04/05 0451 124 132/78 04/04 2214 Nasal 2.0L Cannula 04/04 1716 97 110/64 04/04 1418 98.1 111 20 108/70 94 Nasal Cannula 04/04 1250 103 106/76 Intake & Output 04/05 1600 04/05 0800 04/05 0000 04/04 1600 04/04 0800 04/04 0000 Intake Total 50 170 665.5 100 200 Output Total 40 110 10 20 Balance 10 60 665.5 90 180 Intake, IV 205.5 Intake, Oral 50 170 460 100 200 Number 1 1 Bowel Movements Output, Chest 40 110 10 20 Tube Drainage Physical Exam: General: Awake but confused Eyes: No obvious scleral icterus. HEENT: No jugular venous distention or abnormal jugular venous pulsations. Cardiovascular: Normal intensity S1/S2. Irregular tachycardia Respiratory: Decreased air entry on the left; status post pigtail catheter Abdomen: Soft Msk: s/p amputation; trace edema Skin: Warm Neuro: Demented but awake Current Medications: Current Medications Sig/Julio Start time Last Medication Dose Route Stop Time Status Admin Acetaminophen 1,000 MG Q6P PRN 03/24 1945 AC 03/30 IV 1342 Albuterol Sulfate 3 ML Q4-PRN PRN 03/28 2345 AC INH Atorvastatin Calcium 10 MG 1700 03/25 1700 AC 04/03 PO 1751 Bisacodyl 5 MG DAILY NEEDED PRN 03/26 0745 AC 03/26 PO 0955 Bisacodyl 10 MG DAILY NEEDED PRN 03/26 0745 AC 03/26 PA 1759 Ceftriaxone Sodium 1,000 MG DAILY 04/02 1000 AC 04/04 IV 0759 Diltiazem HCl 30 MG Q6 04/04 1200 AC 04/05 PO 0451 Insulin Aspart 0 TIDAC 03/25 1700 AC 04/04 SC 1251 Lorazepam 0.25 MG AT BEDTIME 04/02 2200 AC 04/03 IV 2057 Metoprolol Succinate 12.5 MG DAILY 04/02 1505 04/05 PO 1037 Omeprazole 40 MG DAILY AC 04/01 1052 04/01 PO 1348 Phosphate 250 MG PC AND AT BEDTIME 04/01 1300 04/05 PO 1038 Prednisone 2.5 MG DAILY 03/26 1649 04/05 PO 1038 Rivaroxaban 15 MG 1700 03/30 1700 04/03 PO 1751 Senna/Docusate Sodium 2 TAB DAILY PRN 03/25 1815 03/26 PO 0955 Results Last 48 Hrs of Labs/Mics: Laboratory Tests 04/05/17 0830: Anion Gap 13, Estimated GFR > 60, BUN/Creatinine Ratio 13.8 04/04/17 0615: Sodium Cancelled, Potassium Cancelled, Chloride Cancelled, Carbon Dioxide Cancelled, Anion Gap Cancelled, BUN Cancelled, Creatinine Cancelled, BUN/ Creatinine Ratio Cancelled, CBC w Diff NO MAN DIFF REQ, RBC 2.98 L, MCV 95.7, MCH 31.5 H, MCHC 32.9 L, RDW 15.6 H, MPV 6.9 L, Gran % 80.8 H, Lymphocytes % 7.2 L, Monocytes % 8.7, Eosinophils % 3.0, Basophils % 0.3, Absolute Granulocytes 7.9 H, Absolute Lymphocytes 0.7 L, Absolute Monocytes 0.8 H, Absolute Eosinophils 0.3, Absolute Basophils 0 Recent Imaging Studies: Telemetry tracings were personally reviewed which shows atrial fibrillation with above goal average heart rate CXR: Stable left pleural catheter. Reduction in size of the previously large left pleural effusion with improved aeration of the left lung. Persistent airspace and interstitial opacification in the left greater than right lung. Assessment/Plan Assessment/Plan 1 Community acquired pneumonia in the left lower lobe and partially loculated left pleural effusion s/p pigtail catheter 2. Atrial fibrillation persisted and chronic rate control strategy 3. On oral anticoagulation with Xarelto 4. Dementia 5. History of pulmonary embolism and deep vein thrombosis 6. Chronic diastolic congestive heart failure. No acute CHF at this time 7. Left bundle branch block 8. Hx of Hypertension 9. 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 Diabetes mellitus 11. Rheumatoid arthritis The patient appears comfortable and remains hemodynamically stable but heart rate remains above goal likely due to the fact that she is still intermittently refusing her medication. Would again consider switching her AV scott blockers to extended release form to help with medication compliance. She remains on Xarelto daily. Chest tube remains in place. Neftali Duggan MD [facility] Continue telemetry? Yes
--- NOTE | 2017-04-05 12:00 | PN- Infect Dx ---
Subjective Subjective: Afebrile without complaints. Objective Last 24 Hrs of Vital Signs/I&O Vital Signs Date Time Temp Pulse Resp B/P B/P Pulse O2 O2 Flow FiO2 Mean Ox Delivery Rate 04/05 1037 108 132/78 04/05 0930 Nasal 2.0L Cannula 04/05 0635 97.9 108 22 132/78 90 Nasal 3.0L Cannula 04/05 0451 124 132/78 04/04 2214 Nasal 2.0L Cannula 04/04 1716 97 110/64 04/04 1418 98.1 111 20 108/70 94 Nasal Cannula 04/04 1250 103 106/76 Intake & Output 04/05 1600 04/05 0800 04/05 0000 Intake Total 50 170 Output Total 40 110 Balance 10 60 Intake, Oral 50 170 Output, Chest 40 110 Tube Drainage Physical Exam Other Physical Findings: She appears comfortable in no acute distress Lungs crackles at the left base; pigtail catheter in place with 120 mL output yesterday and 40 mL overnight Heart regular rhythm with no murmur Extremities decreased left upper extremity edema; mild right upper extremity edema Results Last 24 Hours of Lab Results: Laboratory Tests 04/05 829 Chemistry Sodium (137 - 145 mmol/L) 148 H Potassium (3.5 - 5.1 mmol/L) 4.7 Chloride (98 - 107 mmol/L) 110 H Carbon Dioxide (22 - 30 mmol/L) 25 Anion Gap (5 - 16) 13 BUN (7 - 17 mg/dL) 11 Creatinine (0.5 - 1.0 mg/dL) 0.8 Estimated GFR (>60 ml/min) > 60 BUN/Creatinine Ratio (7 - 25 %) 13.8 Pleural fluid rheumatoid factor less than 15.9 Last 24 Hours of Raghu Results: No new cultures Recent Imaging Studies: Chest x-ray April 05 reveals a reduction in the size of the previously large left pleural effusion with improved aeration of the left lung Assessment/Plan Impression: Improving, with temperatures and white blood cell count remaining normal, on Ceftriaxone, Day 12 of treatment for a presumed left lower lobe pneumonia, complicated by a complex parapneumonic effusion, with improvement on today's chest x-ray. She continues to drain a moderate amount of fluid from the pigtail catheter, which will need to be left in place until the drainage has decreased to a minimum. The pleural fluid rheumatoid factor of less than 15.9 is of unclear significance. Suggestion: 1. Further management of her left pleural effusion/pigtail catheter per Pulmonary 2. Consider Rheumatology evaluation regarding her pleural fluid rheumatoid factor 3. Ensure adequate IV access 4. Continue Ceftriaxone
--- NOTE | 2017-04-05 12:05 | PN- Pulmonary ---
Subjective HPI/Critical Care Issues: Patient seen and examined afebrile. Yesterday white blood cell count 9.8. Chest tube drained a little over 100 mL over 24-hour period. Chest x-ray shows stability. Some reduction in the left pleural effusion with improved aeration overall. Objective Current Medications: Current Medications Sig/Julio Start time Last Medication Dose Route Stop Time Status Admin Acetaminophen 1,000 MG Q6P PRN 03/24 1945 AC 03/30 IV 1342 Albuterol Sulfate 3 ML Q4-PRN PRN 03/28 2345 AC INH Atorvastatin Calcium 10 [place] 17003/25 1700 AC 04/03 PO 1751 Bisacodyl 5 MG DAILY NEEDED PRN 03/26 0745 AC 03/26 PO 0955 Bisacodyl 10 MG DAILY NEEDED PRN 03/26 0745 AC 03/26 PA 1759 Ceftriaxone Sodium 1,000 MG DAILY 04/02 1000 AC 04/04 IV 0759 Diltiazem HCl 30 MG Q6 04/04 1200 AC 04/05 PO 0451 Insulin Aspart 0 TIDAC 03/25 1700 AC 04/04 SC 1251 Lorazepam 0.25 MG AT BEDTIME 04/02 2200 AC 04/03 IV 2057 Metoprolol Succinate 12.5 MG DAILY 04/02 1505 AC 04/05 PO 1037 Omeprazole 40 MG DAILY AC 04/01 1052 AC 04/01 PO 1348 Phosphate 250 MG PC AND AT BEDTIME 04/01 1300 AC 04/05 PO 1038 Prednisone 2.5 MG DAILY 03/26 1649 AC 04/05 PO 1038 Rivaroxaban 15 MG 03/30 1700 AC 04/03 PO 1751 Senna/Docusate Sodium 2 TAB DAILY PRN 03/25 1815 AC 03/26 PO 0955 Vital Signs & I&O Last 24 Hrs of Vitals and I&O: Vital Signs Date Time Temp Pulse Resp B/P B/P Pulse O2 O2 Flow FiO2 Mean Ox Delivery Rate 04/05 1037 108 132/78 04/05 0930 Nasal 2.0L Cannula 04/05 0635 97.9 108 22 132/78 90 Nasal 3.0L Cannula 04/05 0451 124 132/78 04/04 2214 Nasal 2.0L Cannula 04/04 1716 97 110/64 04/04 1418 98.1 111 20 108/70 94 Nasal Cannula 04/04 1250 103 106/76 Intake & Output 04/05 1600 04/05 0800 04/05 0000 Intake Total 50 170 Output Total 40 110 Balance 10 60 Intake, Oral 50 170 Output, Chest 40 110 Tube Drainage Exam Other Physical Findings: Generally - Awake, confused Head and neck - normocephalic, atraumatic, EOMI grossly intact Cardiovascular - S1, S2, systolic murmur Lungs -rare rhonchi with diminished breath sounds at the bases Abdomen - Bowel sounds positive, soft, non-tender Extremities - without edema, hx bka Results Last 24 Hrs of Lab Results: Laboratory Tests 04/05/17 0830: Anion Gap 13, Estimated GFR > 60, BUN/Creatinine Ratio 13.8 Impression/Plan Impression/Plan Impression/Plan: Impression 86 year old woman * partially loculated pleural effusion -significantly enlarged with mediastinal shift * community acquired pneumonia left side * a.fib on xarelto * ROBINSON improved * Delirium Plan -s/p pigtail catheter -cont abx -d/w family -f/u cardiology goals of care - plan for drainage from chest tube, once less than 100/24 hr period can consider to discontinue as long as the family is in agreement and understand a conservative approach. Goals of care need to be addressed. From 03/30 Discussed goals of care. She is DNR/DNI. She has significant atelectasis, pleural effusion and mucous plugging. Bronchoscopy, surgical procedures, etc can be more harmful than beneficial and family would not want to pursue this, which is very reasonable. Additionally tPA administration for lytic purposes would not assist in aeration given other pulmonary issues discussed above and may carry an unreasonable bleeding risk. At this time we will downgrade the patient to telemetry with drainage of the chest tube. We will continue to have discussions with the family regarding longevity of the tube and they are in understanding that the pulmonary process may not be resolved, the goals would be to ensure that she has minimal symptoms during this disease process. DVT prophylaxis at all times DNR/DNI
--- NOTE | 2017-04-05 13:53 | Cons- Psychiatry ---
Psychiatric Consult Date of Consult: 04/05/17 Reason for Consult: "Combative" There is no clear question for us, but we will try and address her reported behavior management, likely due to dementia and infective process. History of Present Illness: 86 F , DNR/DNI, BIBA from home for productive cough and admitted for community acquired pneumonia (CAP) and confusion. She is being treated for CAP and a left pleural effusion, which showed some improvement on CXR today. 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 Allergies: Coded Allergies: warfarin (From COUMADIN) (Severe, "THROAT CLOSED" PER FAMILY 03/24/17) Penicillins (UNKNOWN 03/24/17) amoxicillin (UNKNOWN 03/24/17) risperidone (From RISPERDAL) (UNKNOWN 03/24/17) codeine (Intermediate, DIARRHEA 03/24/17) dabigatran etexilate (From PRADAXA) (Intermediate, BLEEDING 03/24/17) enoxaparin (From LOVENOX) (Intermediate, STOMACH PAIN 03/24/17) haloperidol (From HALDOL) (Intermediate, DIARRHEA, RAPID HR 03/24/17) rivaroxaban (From XARELTO) (Intermediate, BLEEDING 03/24/17) aspirin (BLEEDING PER FAMILY 03/24/17) Current Medications: Current Medications Sig/Julio Start time Last Medication Dose Route Stop Time Status Admin Acetaminophen 1,000 MG Q6P PRN 03/24 1945 AC 03/30 IV 1342 Albuterol Sulfate 3 ML Q4-PRN PRN 03/28 2345 AC INH Atorvastatin Calcium 10 MG 1700 03/25 1700 AC 04/03 PO 1751 Bisacodyl 5 MG DAILY NEEDED PRN 03/26 0745 AC 03/26 PO 0955 Bisacodyl 10 MG DAILY NEEDED PRN 03/26 0745 AC 03/26 ME 1759 Ceftriaxone Sodium 1,000 MG DAILY 04/02 1000 AC 04/05 IV 1218 Diltiazem HCl 30 MG Q6 04/04 1200 AC 04/05 PO 1224 Insulin Aspart 0 TIDAC 01/18 1700 AC 04/05 SC 1224 Lorazepam 0.25 MG AT BEDTIME 04/02 2200 AC 04/03 IV 2057 Metoprolol Succinate 12.5 MG DAILY 04/02 1505 AC 04/05 PO 1037 Omeprazole 40 MG DAILY AC 04/01 1052 AC 04/01 PO 1348 Phosphate 250 MG PC AND AT BEDTIME 04/01 1300 AC 04/05 PO 1224 Prednisone 2.5 MG DAILY 03/26 1649 AC 04/05 PO 1038 Rivaroxaban 15 MG 1700 03/30 1700 AC 04/03 PO 1751 Senna/Docusate Sodium 2 TAB DAILY PRN 03/25 1815 AC 03/26 PO 0955 Past History Past Medical History Neurological: dementia EENT: KAKE Cardiovascular: AFIB, CHF, hypertension, hyperlipidemia, PVD, DVT PE Respiratory: pulmonary embolism, pneumonia Gastrointestinal: NONE Hepatic: NONE Renal: NONE Musculoskeletal: rheumatoid arthritis, RT AKA Psychiatric: NONE Endocrine: diabetes, hypothyroidism Blood Disorders: DVT, IVC FILTER Cancer(s): NONE UNIT TRUST MANAGER/Reproductive: NONE Past Surgical History Surgical History: hip replacement (bilateral), knee replacement (left), right AKA left great toe amputation Psychosocial History Strengths/Capabilities: Supportive family Physical Limitations (Interventions): Ambulation Psychiatric Treatment History Psych Treatment Psychiatric Treatment No Diagnosis: Delirium due to medical condition, resolving Neurocognitive disorder, unspecified Risk Factors: age (under 24/over 65), chronic/serious med cond. Substance Use/Abuse History Drug Use/Abuse Substances Used/Abused No Substance Abuse Treatment Substance Abuse Treatment Past Substance Abuse [place] No Assessment/Plan Mental Status Orientation: Oriented to person, place "Hospital," cannot name the month "Going into April," season, state, President. Not oriented to day, date, year, town , county. She states that she was born in and grew up in [place]. Affect: Flat Speech: Mumbled, Soft Neuro-vegetative: Sleep Disturbance Mental Status Exam: The patient was able to register and recall one object, but was unable to participate further today in a Mini-Mental Status Exam. She denies AH, VH and presents no gretchen delusions. She is complaining that it is clinical manager home care the room, but was satisfied when the [facility] turned the thermostat down. She is endorsing depression because she is in the hospital. She denies suicidal or homicidal ideation. Lab Results: Laboratory Tests 04/05 0830 Chemistry Sodium (137 - 145 mmol/L) 148 H Potassium (3.5 - 5.1 mmol/L) 4.7 Chloride (98 - 107 mmol/L) 110 H Carbon Dioxide (22 - 30 mmol/L) 25 Anion Gap (5 - 16) 13 BUN (7 - 17 mg/dL) 11 Creatinine (0.5 - 1.0 mg/dL) 0.8 Estimated GFR (>60 ml/min) > 60 BUN/Creatinine Ratio (7 - 25 %) 13.8 04/04/17 WBC 9.8 N 04/01/17 Rheumatoid factor 30.2 H Diffential Diagnosis: Delirium due to medical condition, resolving Neurocognitive disorder, unspecified Impression: This patient is an 86 y.o. Caucasion female, who lives at home with her daughter , her primary caregiver and is hard of hearing. She presented to the ED with signs and symptoms of pneumonia, and now has a chest tube for drainage of her left pleural effusion. She has a complex medical treatment history, but denies any past diagnosis or treatment for mood disorder. She is calm during my interview, and is able to participate in portions of conversations, but unable to participate in a full cognitive assessment. She comes to us with a history of dementia, and her mental status was likely exacerbated by her pneumonia. We understand that she has had some combative behavior related to caregiving. We would avoid benzodiazepines, as they can cause or worsen delirium, and can lead to falls in the elderly. Unless she is psychotic or severely agitated or violent , we suggest avoiding antipsychotics, such as risperidone, quetiapine, olanzapine, aripiprazole or haloperidol, as these can put the patient at increased risk of cardiac arrhythmia and suddent in the elderly. Case management reports that a goals of care meeting is pending, and the likely outcome is discharge to home with hospice. The patient is probably unable to make a decision about this plan. Her daughter, her primary caregiver at home, is her spokesperson, but there is no POA or conservation paperwork in the chart. Provisional Treatment Plan: 1. Avoid delirium triggers, such as malnutrition, untreated pain, immobilization , bladder catheters, constipation or sleep deprivation. Limit nursing interventions to the minimum between 10P and 6A. 2. Redirection, as necessary, if confusion. If severe or violent agitation, please manage with a process safety specialist and netbed, if indicated, and try to avoid antipsychotic medication, as these medications carry the increased risk of sudden in the lederly, due to fatal arrhythmia. 3. Geriatric assessment. Consult is signing off. Please re-consult if other psychiatric matters arise. Thank you for this consult.
[2017-04-05 14:16] VITALS: BP 130/64
[2017-04-05 22:17] VITALS: BP 128/60
[2017-04-06 06:00] VITALS: BP 118/60
--- NOTE | 2017-04-06 07:22 | PN- Housestaff ---
Assessment/Plan Assessment: 86 y old female with a PMH of dementia, A. fib on Xeralto, peripheral artery disease, chronic diastolic heart failure, rheumatoid arthritis, diabetes mellitus who presents to [facility] ED with her family very confused and not able to provide history. Problem List: 1. Partially loculated, complicated parapneumonic pleural effusion 2. Community-acquired pneumonia 3. Acute kidney injury 4. Delirium 5. Atrial fibrillation with rapid ventricular rate #Partially loculated, complicated parapneumonic pleural effusion: The patient came in with productive cough, confusion, and shortness of breath. She is found to have a moderate to large partially loculated pleural effusion on CT scan. Cultures were negative. He was started on ceftriaxone and azithromycin. IR and pulm decided not to drain the effusion on 03/26/17. TTE showed EF 60-65% and RV pressure 35 mmHg. She subsequently decompensated with desaturation and fever and was transferred to the ICU on 03/28/2017. Antibiotics were upgraded to vancomycin and ceftazidine. Repeat imaging revealed that the pleural effusion was enlarged with complete opacification of left hemithorax and a new mild rightward shift of the mediastinum. On 03/29/2017, IR performed ultrasound-guided thoracocentesis draining 500 mL of fluid and inserting a Pleurx catheter. Fluid analysis subsequently revealed it to be exudative. Cytology showed lymphocytes, neutrophils, rare histiocytes and red blood cells but features of malignancy were not identified. RF less than 15.9 in pleural fluid. Repeat imaging on 2017 did not show significant improvement. IR readjusted the pigtail catheter at the bedside and improved the drainage. I suspect that the etiology of her effusion is infectious and that the cultures are not growing because she received antibiotics prior to thoracocentesis. The Pleurx catheter has since drained approximately 1750 mL additional fluid. Her respiratory status has since stabilized but is poor. Chest x-ray does now show some improvement in size of effusion. Prognosis is guarded. She is not a candidate for TPa or DNase and surgery would be very high risk for her given her age and comorbidities. ID is recommending a PICC line if she continues to have the chest tube but we'll talk to pulmonology to see how long the chest tube. -Appreciate pulmonology recommendations -Appreciate cardiology recommendations -Continue ceftriaxone -Follow cultures: Pleural fluid shows no growth -Appreciate ID recommendations #Atrial fibrillation with rapid ventricular rate: Her rates have been elevated. She has also had some intermittent hypotension. Her rates overnight were 80-120. She is intermittently refusing diltiazem making it difficult to control her rates. -Diltiazem 30 mg every 8 hours #Acute kidney injury: Patient presented with creatinine 1.4. Baseline is 1.0. Likely prerenal azotemia in the setting of infection. Resolved. -CTM #Constipation: -Bisacodyl when necessary -Senna when necessary #Chronic medical problems: -Continue home atorvastatin, insulin, prednisone, rivaroxaban DVT prophylaxis with rivaroxaban Heart healthy diet, puree, nectar thick DNR/DNI
--- NOTE | 2017-04-06 07:36 | PN- Housestaff ---
Jamal BLAKELY,Senthil 04/06/17 0736: Subjective Follow-up For: Steve with [facility] ROBINSON Delirium Pleural effusion Subjective: Patient was seen and examined today. Patient is A&O x 0, not understanding questions being asked today. Patient denies any pain. Review of Systems Constitutional: Reports: no symptoms. Denies: see HPI. Cardiovascular: Reports: no symptoms. Respiratory: Reports: no symptoms. Gastrointestinal: Reports: no symptoms. Musculoskeletal: Reports: no symptoms. Objective Last 24 Hrs of Vital Signs/I&O Vital Signs Date Time Temp Pulse Resp B/P B/P Pulse O2 O2 Flow FiO2 Mean Ox Delivery Rate 04/06 1400 97.9 97 20 120/62 95 04/06 1219 114/64 04/06 0912 118/60 04/06 0833 94 Nasal 2.0L Cannula 04/06 0600 98.0 120 24 118/60 95 Nasal 2.0L Cannula 04/06 0544 110 118/60 04/06 0000 Nasal 2.0L Cannula 04/05 2357 102 122/68 04/05 2217 98.6 101 20 128/60 94 Nasal 3.0L Cannula 04/05 1654 96 130/64 Intake & Output 04/06 1600 04/06 0800 04/06 0000 Intake Total 700 50 110 Output Total 30 100 Balance 700 20 10 Intake, IV 500 10 Intake, Oral 200 50 100 Output, Chest 30 100 Tube Drainage Physical Exam General Appearance: No Acute Distress HEENT: Atraumatic, Mucous Membr. moist/pink Cardiovascular: Normal S1, Normal S2, irregular rate Lungs: coarse breath sounds heard anteriorly Abdomen: Normal Bowel Sounds, Soft, No Tenderness Extremities: above knee amputation of the right, first toe amputation of left foot Vascular: Pulses Symmetrical Current Medications: Current Medications Sig/Julio Start time Last Medication Dose Route Stop Time Status Admin Acetaminophen 1,000 MG Q6P PRN 03/24 1945 AC 03/30 IV 1342 Albuterol Sulfate 3 ML Q4-PRN PRN 03/28 2345 AC INH Atorvastatin Calcium 10 MG 1700 03/25 1700 AC 04/05 PO 1655 Bisacodyl 5 MG DAILY NEEDED PRN 03/26 0745 AC 03/26 PO 0955 Bisacodyl 10 MG DAILY NEEDED PRN 03/26 0745 AC 03/26 OR 1759 Ceftriaxone Sodium 1,000 MG DAILY 04/02 1000 DC 04/06 IV 0912 Dextrose/Water 1,000 ML Q13H 04/06 1000 AC 04/06 IV 04/06 2259 1143 Diltiazem HCl 30 MG Q6 04/04 1200 AC 04/06 PO 1219 Insulin Aspart 0 TIDAC 03/25 1700 AC 04/06 SC 1220 Lorazepam 0.25 MG AT BEDTIME 04/02 2200 AC 04/05 IV 2148 Metoprolol Succinate 12.5 MG DAILY 04/02 1505 AC 04/06 PO 0912 Omeprazole 40 MG DAILY AC 04/01 1052 AC 04/01 PO 1348 Phosphate 250 MG PC AND AT BEDTIME 04/01 1300 AC 04/06 PO 1219 Prednisone 2.5 MG DAILY 03/26 1649 AC 04/06 PO 0912 Rivaroxaban 15 MG 1700 03/30 1700 AC 04/05 PO 1655 Senna/Docusate Sodium 2 TAB DAILY PRN 03/25 1815 AC 03/26 PO 0955 Last 24 Hrs of Lab/Raghu Results Last 24 Hrs of Labs/Mics: Laboratory Tests 04/06/17 0630: Anion Gap 10, Estimated GFR > 60, BUN/Creatinine Ratio 18.6 Lines/Diet/Fluids Catheters/Tubes: chest tube draining clear yellow fluid Assessment/Plan Assessment: 86 y old female with a PMH of dementia, A. fib on Xeralto, peripheral artery disease, chronic diastolic heart failure, rheumatoid arthritis, diabetes mellitus who presents to [place] ED with her family very confused and not able to provide history. Problem List: 1. Partially loculated, complicated parapneumonic pleural effusion 2. Community-acquired pneumonia 3. Acute kidney injury 4. Delirium 5. Atrial fibrillation with rapid ventricular rate 6. Hypernatermia #Hypernatremia Patient's Na is 148. Patient is not able to tolerate oral feeds. Failed repeat swallow evaluation today. Patient will be placed on IV fluids - repeat BEP in AM #Delirium Patient's mental status continues to waxes and wane. Patient was evaluated by speech and swallow therpy and failed swallow evaluation. - NPO with IV fluid hydration #Partially loculated, complicated parapneumonic pleural effusion: Patient initially presented with productive cough, confusion, and shortness of breath. With CT scan showing: a moderate to large partially loculated pleural effusion on CT scan. Cultures were negative. Patient was started on ceftriaxone and azithromycin. IR and pulm initially decided not to drain the effusion on . TTE showed EF 60-65% and RV pressure 35 mmHg. She subsequently decompensated with desaturation and fever and was transferred to the ICU on 03/28. Antibiotics were upgraded to vancomycin and ceftazidine. Repeat imaging revealed that the pleural effusion was enlarged with complete opacification of left hemithorax and a new mild rightward shift of the mediastinum. On 03/29/2017, IR performed ultrasound-guided thoracocentesis draining 500 mL of fluid and inserting a Pleurx catheter with analysis revealing an exudative fluid meeting light's criteria with pleural fluid LDH to serum LDH >0.6. Cytology showed lymphocytes, neutrophils, rare histiocytes and red blood cells but features of malignancy were not identified. RF less than 15.9 in pleural fluid. Repeat imaging on 03/30/2017 did not show significant improvement. IR readjusted the pigtail catheter at the bedside and improved the drainage. The Pleurx catheter has since drained approximately 1750 mL additional fluid. Her respiratory status has since stabilized but is poor. Chest x-ray does now show some improvement in size of effusion. Prognosis is guarded. She is not a candidate for TPa or DNase and surgery would be very high risk for her given her age and comorbidities. Exudative pleural fluid: with low glucose possible etiologies include infectious causes such as TB, malignancy, rheumatoid pleurisy, empyema. TB is unlikely with mesothelial cells of > 5%. Patient has significant rheumatoid arthritis which is a possible etiology however pleural rheumatoid factor is <15.9. Patient is currently being treated for infectious etiology covered with IV Ceftriaxone. -Appreciate pulmonology recommendations -Appreciate cardiology recommendations -Continue ceftriaxone -Follow cultures: Pleural fluid shows no growth -Appreciate ID recommendations #Atrial fibrillation with rapid ventricular rate: Her rates have been elevated. She has also had some intermittent hypotension. Her rates overnight were 80-120. She is intermittently refusing diltiazem making it difficult to control her rates. -Diltiazem 30 mg every 8 hours - Cardiology is on board. Appreciate recommendations #Acute kidney injury: Patient presented with creatinine 1.4. Baseline is 1.0. Likely prerenal azotemia in the setting of infection. Resolved. -Cr: 0.7 today #Constipation: -Bisacodyl when necessary -Senna when necessary #Chronic medical problems: -Continue home atorvastatin, insulin, prednisone, rivaroxaban DVT prophylaxis with rivaroxaban NPO with IV fluids DNR/DNI Problem List: 1. Pleural effusion 2. Hypernatremia Pain Ratin Pain Location: n/a Pain Goal: Remain pain free Pain Plan: Tylenol PRN Tomorrow's Labs & Rationales: bep - hypernatremia Radha Botellosergey 04/06/17 1447: Attending MD Review Statement Attending Statement Attending MD Statement: examined this patient, discuss w/resident/PA/STRUCTURAL IRONWORKER, agreed w/resident/PA/STRUCTURAL IRONWORKER, reviewed EMR data (avail), discussed with nursing, discussed with case mgmt Attending Assessment/Plan: Having family meeting today at 330 pm with hospice being present regardings goals of care. Pt has poor prognosis. Pt seen by speech and made NPO as aspirating with modified liquid diet also. Pulmonary and ID both recommending keeping patient comfortable .
--- NOTE | 2017-04-06 10:25 | PN- Infect Dx ---
Subjective Subjective: Afebrile without complaint Objective Last 24 Hrs of Vital Signs/I&O Vital Signs Date Time Temp Pulse Resp B/P B/P Pulse O2 O2 Flow FiO2 Mean Ox Delivery Rate 04/06 0912 118/60 04/06 0833 94 Nasal 2.0L Cannula 04/06 0600 98.0 120 24 118/60 95 Nasal 2.0L Cannula 04/06 0544 110 118/60 04/06 0000 Nasal 2.0L Cannula 04/05 2357 102 122/68 04/05 2217 98.6 101 20 128/60 94 Nasal 3.0L Cannula 04/05 1654 96 130/64 04/05 1416 98.7 96 20 130/64 94 Nasal 3.0L Cannula 04/05 1224 108 132/78 04/05 1037 108 132/78 Intake & Output 04/06 1600 04/06 0800 04/06 0000 Intake Total 50 110 Output Total 30 100 Balance 20 10 Intake, IV 10 Intake, Oral 50 100 Output, Chest 30 100 Tube Drainage Physical Exam Other Physical Findings: She is awake and alert in no acute distress Lungs bilateral rhonchi; pigtail catheter in the left chest with 140 mL output yesterday and 30 mL overnight Heart irregular irrhythm with no murmur Extremities minimal edema of the left lower extremity Results Last 24 Hours of Lab Results: Laboratory Tests 04/06 629 Chemistry Sodium (137 - 145 mmol/L) 148 H Potassium (3.5 - 5.1 mmol/L) 4.5 Chloride (98 - 107 mmol/L) 113 H Carbon Dioxide (22 - 30 mmol/L) 26 Anion Gap (5 - 16) 10 BUN (7 - 17 mg/dL) 13 Creatinine (0.5 - 1.0 mg/dL) 0.7 Estimated GFR (>60 ml/min) > 60 BUN/Creatinine Ratio (7 - 25 %) 18.6 Last 24 Hours of Raghu Results: No new cultures Assessment/Plan Impression: Stable, with temperatures and white blood cell count remaining normal, on Ceftriaxone, Day 12 of treatment for a presumed left lower lobe pneumonia, complicated by a complex parapneumonic effusion, with improvement on yesterday's chest x-ray. She continues to drain a moderate amount of fluid from the pigtail catheter, which will need to be left in place until the drainage has decreased to a minimum. The pleural fluid rheumatoid factor of less than 15.9 is of unclear significance. Suggestion: 1. Further management of her left pleural effusion/pigtail catheter per Pulmonary 2. Further management regarding her pleural fluid rheumatoid factor per Medicine/Rheumatology 3. Continue Ceftriaxone
--- NOTE | 2017-04-06 11:13 | PN- Cardiology ---
Subjective Subjective: The patient is confused. She appears to be resting comfortably Review of Systems: Unobtainable Objective Vital Signs and I&Os Vital Signs Date Time Temp Pulse Resp B/P B/P Pulse O2 O2 Flow FiO2 Mean Ox Delivery Rate 04/06 0912 118/60 04/06 0833 94 Nasal 2.0L Cannula 04/06 0600 98.0 120 24 118/60 95 Nasal 2.0L Cannula 04/06 0544 110 118/60 04/06 0000 Nasal 2.0L Cannula 04/05 2357 102 122/68 04/05 2217 98.6 101 20 128/60 94 Nasal 3.0L Cannula 04/05 1654 96 130/64 04/05 1416 98.7 96 20 130/64 94 Nasal 3.0L Cannula 04/05 1224 108 132/78 Intake & Output 04/06 1600 04/06 0800 04/06 0000 04/05 1600 04/05 0800 04/05 0000 Intake Total 50 110 300 50 170 Output Total 30 100 40 110 Balance 20 10 300 10 60 Intake, IV 10 Intake, Oral 50 100 300 50 170 Output, Chest 30 100 40 110 Tube Drainage Physical Exam: Patient is a well-developed well-nourished female appearing in no acute distress confused HEENT is unremarkable Neck is supple there is no JVD Lungs are clear Heart irregular rhythm S1 and S2 are normal no murmurs gallops or rubs Abdomen bowel sounds positive Extremities without edema Current Medications: Current Medications Sig/Julio Start time Last Medication Dose Route Stop Time Status Admin Acetaminophen 1,000 MG Q6P PRN 03/24 1945 AC 03/30 IV 1342 Albuterol Sulfate 3 ML Q4-PRN PRN 03/28 2345 AC INH Atorvastatin Calcium 10 MG 1700 03/25 1700 AC 04/05 PO 1655 Bisacodyl 5 MG DAILY NEEDED PRN 03/26 0745 AC 03/26 PO 0955 Bisacodyl 10 MG DAILY NEEDED PRN 03/26 0745 AC 03/26 [place] 1759 Ceftriaxone Sodium 1,000 MG DAILY 04/02 1000 DC 04/06 IV 0912 Dextrose/Water 1,000 ML Q13H 04/06 1000 AC IV 04/06 2259 Diltiazem HCl 30 MG Q6 04/04 1200 AC 04/06 PO 0544 Insulin Aspart 0 TIDAC 01/18 1700 AC 04/05 SC 1655 Lorazepam 0.25 MG AT BEDTIME 04/02 2200 AC 04/05 IV 2148 Metoprolol Succinate 12.5 MG DAILY 04/02 1505 AC 04/06 PO 0912 Omeprazole 40 MG DAILY AC 04/01 1052 AC 04/01 PO 1348 Phosphate 250 MG PC AND AT BEDTIME 04/01 1300 AC 04/06 PO 0912 Prednisone 2.5 MG DAILY 03/26 1649 AC 04/06 PO 0912 Rivaroxaban 15 MG 1700 03/30 1700 AC 04/05 PO 1655 Senna/Docusate Sodium 2 TAB DAILY PRN 03/25 1815 AC 03/26 PO 0955 Results Last 48 Hrs of Labs/Mics: Laboratory Tests 04/06/17 0630: Anion Gap 10, Estimated GFR > 60, BUN/Creatinine Ratio 18.6 04/05/17 0830: Anion Gap 13, Estimated GFR > 60, BUN/Creatinine Ratio 13.8 Telemetry personally reviewed atrial fibrillation with intermittent rapid ventricular response Assessment/Plan Assessment/Plan 1 Community acquired pneumonia in the left lower lobe and partially loculated left pleural effusion s/p pigtail catheter 2. Atrial fibrillation persistent on chronic rate control strategy 3. On oral anticoagulation with Xarelto 4. Dementia 5. History of pulmonary embolism and deep vein thrombosis 6. Chronic diastolic congestive heart failure. No acute CHF at this time 7. Left bundle branch block 8. Hx of Hypertension 9. 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 Diabetes mellitus 11. Rheumatoid arthritis Recommendations 1. I would continue her current medications. She is intermittently refusing her meds therefore has a rapid ventricular response of her atrial fibrillation. 2. Chest tube remains in place. Continue to monitor output 3. Her overall prognosis is poor Continue telemetry? Yes
--- NOTE | 2017-04-06 12:32 | PN- Pulmonary ---
Subjective HPI/Critical Care Issues: Patient seen and examined. Some fluid continues to drain. Objective Current Medications: Current Medications Sig/Julio Start time Last Medication Dose Route Stop Time Status Admin Acetaminophen 1,000 MG Q6P PRN 03/24 1945 AC 03/30 IV 1342 Albuterol Sulfate 3 ML Q4-PRN PRN 03/28 2345 AC INH Atorvastatin Calcium 10 MG 1700 03/25 1700 AC 04/05 PO 1655 Bisacodyl 5 MG DAILY NEEDED PRN 03/26 0745 AC 03/26 PO 0955 Bisacodyl 10 MG DAILY NEEDED PRN 03/26 0745 AC 03/26 [place] 1759 Ceftriaxone Sodium 1,000 MG DAILY 04/02 1000 DC 04/06 IV 0912 Dextrose/Water 1,000 ML Q13H 04/06 1000 AC 04/06 IV 04/06 2259 1143 Diltiazem HCl 30 MG Q6 04/04 1200 AC 04/06 PO 1219 Insulin Aspart 0 TIDAC 03/25 1700 AC 04/06 SC 1220 Lorazepam 0.25 MG AT BEDTIME 04/02 2200 AC 04/05 IV 2148 Metoprolol Succinate 12.5 MG DAILY 04/02 1505 AC 04/06 PO 0912 Omeprazole 40 MG DAILY AC 04/01 1052 AC 04/01 PO 1348 Phosphate 250 MG PC AND AT BEDTIME 04/01 1300 AC 04/06 PO 1219 Prednisone 2.5 MG DAILY 03/26 1649 AC 04/06 PO 0912 Rivaroxaban 15 MG 1700 03/30 1700 AC 04/05 PO 1655 Senna/Docusate Sodium 2 TAB DAILY PRN 03/25 1815 AC 03/26 PO 0955 Vital Signs & I&O Last 24 Hrs of Vitals and I&O: Vital Signs Date Time Temp Pulse Resp B/P B/P Pulse O2 O2 Flow FiO2 Mean Ox Delivery Rate 04/06 1219 114/64 04/06 0912 118/60 04/06 0833 94 Nasal 2.0L Cannula 04/06 0600 98.0 120 24 118/60 95 Nasal 2.0L Cannula 04/06 0544 110 118/60 04/06 0000 Nasal 2.0L Cannula 04/05 2357 102 122/68 04/05 2217 98.6 101 20 128/60 94 Nasal 3.0L Cannula 04/05 1654 96 130/64 04/05 1416 98.7 96 20 130/64 94 Nasal 3.0L Cannula Intake & Output 04/06 1600 04/06 0800 04/06 0000 Intake Total 50 110 Output Total 30 100 Balance 20 10 Intake, IV 10 Intake, Oral 50 100 Output, Chest 30 100 Tube Drainage Exam Other Physical Findings: Generally - Awake, confused Head and neck - normocephalic, atraumatic, EOMI grossly intact Cardiovascular - S1, S2, systolic murmur Lungs -rare rhonchi with diminished breath sounds at the bases Abdomen - Bowel sounds positive, soft, non-tender Extremities - without edema, hx bka Results Last 24 Hrs of Lab Results: Laboratory Tests 04/06/17 0630: Anion Gap 10, Estimated GFR > 60, BUN/Creatinine Ratio 18.6 Impression/Plan Impression/Plan Impression/Plan: Impression 86 year old woman * partially loculated pleural effusion -significantly enlarged with mediastinal shift * community acquired pneumonia left side * a.fib on xarelto * ROBINSON improved * Delirium Plan -s/p pigtail catheter -cont abx -d/w family -f/u cardiology f/u goals of care DVT prophylaxis at all times DNR/DNI
[2017-04-06 14:00] VITALS: BP 120/62
[2017-04-06 22:00] VITALS: BP 132/70
--- NOTE | 2017-04-07 07:30 | PN- Housestaff ---
Jamal BLAKELY,Senthil 04/07/17 0722: Subjective Follow-up For: Loculated paraneumonic effusion [email or web address] with RVR Delirium Tele-Events Since Last Visit: Steve: 81-114 Subjective: Pt was seen and examined this morning. Patient states she does not feel well but does not elaborate further. States she does not know what is bothering her but she feels as though she is going to . Continues to state she wants to . Patient is not oriented to time, place or person. Patient was unable to take her morning cardizem today. Review of Systems Constitutional: Reports: see HPI. Cardiovascular: Reports: no symptoms. Respiratory: Reports: no symptoms. Gastrointestinal: Reports: no symptoms. Genitourinary: Reports: no symptoms. Neurological/Psychological: Reports: see HPI, confusion. Objective Last 24 Hrs of Vital Signs/I&O Vital Signs Date Time Temp Pulse Resp B/P B/P Pulse O2 O2 Flow FiO2 Mean Ox Delivery Rate 04/06 2252 103 132/70 04/06 2231 Nasal 2.0L Cannula 04/06 2219 97.5 89 20 97 Nasal Cannula 04/06 2200 120 132/70 04/06 1722 94 Nasal 2.0L Cannula 04/06 1627 116/60 04/06 1400 97.9 97 20 120/62 95 04/06 1219 114/64 04/06 0912 118/60 04/06 0833 94 Nasal 2.0L Cannula Intake & Output 04/07 0800 04/07 0000 04/06 1600 Intake Total 300 300 700 Output Total 15 0 30 Balance 285 300 670 Intake, IV 300 300 500 Intake, Oral 0 0 200 Number 1 Bowel Movements Output, Chest 15 0 30 Tube Drainage Physical Exam General Appearance: Cooperative, No Acute Distress, arousable but drowsy HEENT: Atraumatic, Mucous Membr. moist/pink Cardiovascular: Normal S1, Normal S2, tachy Lungs: coarse breath sounds bilaterally Abdomen: Normal Bowel Sounds, Soft, No Tenderness Extremities: no change from previous day Current Medications: Current Medications Sig/Julio Start time Last Medication Dose Route Stop Time Status Admin Acetaminophen 1,000 MG Q6P PRN 03/24 1945 AC 03/30 IV 1342 Albuterol Sulfate 3 ML Q4-PRN PRN 03/28 2345 AC INH Atorvastatin Calcium 10 MG 1700 01/18 1700 AC 04/06 PO 1626 Bisacodyl 5 MG DAILY NEEDED PRN 03/26 0745 AC 03/26 PO 0955 Bisacodyl 10 MG DAILY NEEDED PRN 03/26 0745 AC 03/26 [place] 1759 Ceftriaxone Sodium 1,000 MG DAILY 04/07 1000 AC IV Ceftriaxone Sodium 1,000 MG DAILY 04/02 1000 DC 04/06 IV 0912 Dextrose/Water 1,000 ML Q13H 04/06 1000 DC 04/06 IV 04/06 2259 1143 Diltiazem HCl 30 MG Q6 04/04 1200 AC 04/06 PO 2252 Insulin Aspart 0 TIDAC 03/25 1700 DC 04/06 SC 1627 Insulin Human Regular 0 Q6 04/07 0600 AC SC Lorazepam 0.25 MG AT BEDTIME 04/02 2200 AC 04/06 IV 1959 Metoprolol Succinate 12.5 MG DAILY 04/02 1505 AC 04/06 PO 0912 Omeprazole 40 MG DAILY AC 04/01 1052 AC 04/01 PO 1348 Phosphate 250 MG PC AND AT BEDTIME 04/01 1300 AC 04/06 PO 1959 Prednisone 2.5 MG DAILY 03/26 1649 AC 04/06 PO 0912 Rivaroxaban 15 MG 1700 03/30 1700 AC 04/06 PO 1627 Senna/Docusate Sodium 2 TAB DAILY PRN 03/25 1815 AC 03/26 PO 0955 Last 24 Hrs of Lab/Raghu Results Last 24 Hrs of Labs/Mics: Laboratory Tests 04/07/17 0630: Sodium Pending, Potassium Pending, Chloride Pending, Carbon Dioxide Pending, Anion Gap Pending, BUN Pending, Creatinine Pending, BUN/Creatinine Ratio Pending Assessment/Plan Assessment: 86 y old female with a PMH of dementia, A. fib on Xeralto, peripheral artery disease, chronic diastolic heart failure, rheumatoid arthritis, diabetes mellitus who presents to [facility] with her family very confused and not able to provide history. Problem List: 1. Partially loculated, complicated parapneumonic pleural effusion 2. Community-acquired pneumonia 3. Acute kidney injury 4. Delirium 5. Atrial fibrillation with rapid ventricular rate 6. Hypernatermia #Hypernatremia Patient's Na is 148. Patient is not able to tolerate oral feeds. Failed repeat swallow evaluatio. Currently NPO - continue IV fluids - repeat BEP in AM #Delirium Patient's mental status continues to waxes and wane. Patient was evaluated by speech and swallow therpy and failed swallow evaluation. - NPO with IV fluid hydration #Partially loculated, complicated parapneumonic pleural effusion: Patient initially presented with productive cough, confusion, and shortness of breath. With CT scan showing: a moderate to large partially loculated pleural effusion on CT scan. Cultures were negative. Patient was started on ceftriaxone and azithromycin. IR and pulm initially decided not to drain the effusion on . TTE showed EF 60-65% and RV pressure 35 mmHg. She subsequently decompensated with desaturation and fever and was transferred to the ICU on 03/28. Antibiotics were upgraded to vancomycin and ceftazidine. Repeat imaging revealed that the pleural effusion was enlarged with complete opacification of left hemithorax and a new mild rightward shift of the mediastinum. On 03/29/2017, IR performed ultrasound-guided thoracocentesis draining 500 mL of fluid and inserting a Pleurx catheter with analysis revealing an exudative fluid meeting light's criteria with pleural fluid LDH to serum LDH >0.6. Exudative pleural fluid with low glucose possible etiologies include infectious causes such as TB, malignancy, rheumatoid pleurisy, empyema. Cytology showed lymphocytes, neutrophils, rare histiocytes and red blood cells but features of malignancy were not identified. TB is unlikely with mesothelial cells of > 5%. Patient has significant rheumatoid arthritis which is a possible etiology however pleural rheumatoid factor is <15.9. Patient is currently being treated for infectious etiology covered with IV Ceftriaxone. Repeat imaging on 03/30/2017 did not show significant improvement. IR readjusted the pigtail catheter at the bedside and improved the drainage. The Pleurx catheter drainage is starting to slow down. Per pulmonology recommendations and per family's consent the catheter will be removed. -Appreciate pulmonology recommendations -Appreciate cardiology recommendations -Continue ceftriaxone -Follow cultures: Pleural fluid shows no growth -Appreciate ID recommendations -Pleurx catheter removal by IR tomorrow #Atrial fibrillation with rapid ventricular rate: Her rates have been elevated. She has also had some intermittent hypotension. Her rates overnight were 80-120. She is intermittently refusing diltiazem making it difficult to control her rates. -Diltiazem 30 mg every 8 hours - Cardiology is on board. Appreciate recommendations #Acute kidney injury: Patient presented with creatinine 1.4. Baseline is 1.0. Likely prerenal azotemia in the setting of infection. Resolved. -Cr: 0.7 today #Constipation: -Bisacodyl when necessary -Senna when necessary #Chronic medical problems: -Continue home atorvastatin, insulin, prednisone, rivaroxaban DVT prophylaxis with rivaroxaban NPO with IV fluids DNR/DNI Problem List: 1. Pleural effusion 2. Hypernatremia Pain Ratin Pain Location: does not specify Pain Goal: Remain pain free Pain Plan: per pain pathway Tomorrow's Labs & Rationales: bep - hypernatremia Vitor Botello 04/07/17 1348: Attending MD Review Statement Attending Statement Attending MD Statement: examined this patient, discuss w/resident/PA/CHARCOAL UNLOADER, agreed w/resident/PA/CHARCOAL UNLOADER, reviewed EMR data (avail), discussed with nursing, discussed with case mgmt Attending Assessment/Plan: Had a lengthy family conference with pts family members alongwith Hospice and case management to discuss goals of care. Patients family was not able to come to a decision of home hospice vs inpatient hospice as the daughter does not feel that she has enough family support to do home hospice. D/w pulmonology the pig tail catheter removal. Will d/w daughter today the removal first and then remove it.
--- NOTE | 2017-04-07 11:41 | PN- Pulmonary ---
Subjective HPI/Critical Care Issues: Patient seen and examined this morning. She is awake however not following commands. Minimal chest tube output. Consideration for hospice or comfort measures. Objective Current Medications: Current Medications Sig/Julio Start time Last Medication Dose Route Stop Time Status Admin Acetaminophen 1,000 MG Q6P PRN 03/24 1945 AC 03/30 IV 1342 Albuterol Sulfate 3 ML Q4-PRN PRN 03/28 2345 AC INH Atorvastatin Calcium 10 MG 1700 03/25 1700 AC 04/06 PO 1626 Bisacodyl 5 MG DAILY NEEDED PRN 03/26 0745 AC 03/26 PO 0955 Bisacodyl 10 MG DAILY NEEDED PRN 03/26 0745 AC 03/26 [place] 1759 Ceftriaxone Sodium 1,000 MG DAILY 04/07 1000 AC 04/07 IV 0937 Dextrose/Water 1,000 ML Q13H 04/06 1000 DC 04/06 IV 04/06 2259 1143 Diltiazem HCl 30 MG Q6 04/04 1200 AC 04/06 PO 2252 Insulin Aspart 0 TIDAC 03/25 1700 DC 04/06 SC 1627 Insulin Human Regular 0 Q6 04/07 0600 AC SC Lorazepam 0.25 MG AT BEDTIME 04/02 2200 AC 04/06 IV 1959 Metoprolol Succinate 12.5 MG DAILY 04/02 1505 AC 04/07 PO 0937 Omeprazole 40 MG DAILY AC 04/01 1052 AC 04/01 PO 1348 Phosphate 250 MG PC AND AT BEDTIME 04/01 1300 AC 04/07 PO 0936 Prednisone 2.5 MG DAILY 03/26 1649 AC 04/07 PO 0936 Rivaroxaban 15 MG 1700 03/30 1700 AC 04/06 PO 1627 Senna/Docusate Sodium 2 TAB DAILY PRN 03/25 1815 AC 03/26 PO 0955 Vital Signs & I&O Last 24 Hrs of Vitals and I&O: Vital Signs Date Time Temp Pulse Resp B/P B/P Pulse O2 O2 Flow FiO2 Mean Ox Delivery Rate 04/07 0937 100 110/58 04/07 0816 94 Nasal 3.0L Cannula 04/06 2252 103 132/70 04/06 2231 Nasal 2.0L Cannula 04/06 2219 97.5 89 20 97 Nasal Cannula 04/06 2200 120 132/70 04/06 1722 94 Nasal 2.0L Cannula 04/06 1627 116/60 04/06 1400 97.9 97 20 120/62 95 04/06 1219 114/64 Intake & Output 04/07 1600 04/07 0800 04/07 0000 Intake Total 300 300 Output Total 15 0 Balance 285 300 Intake, IV 300 300 Intake, Oral 0 0 Number 1 Bowel Movements Output, Chest 15 0 Tube Drainage Exam Other Physical Findings: Generally - Awake, confused Head and neck - normocephalic, atraumatic, EOMI grossly intact Cardiovascular - S1, S2, systolic murmur Lungs -rare rhonchi with diminished breath sounds at the bases Abdomen - Bowel sounds positive, soft, non-tender Extremities - without edema, hx bka Results Last 24 Hrs of Lab Results: Laboratory Tests 04/07/17 0630: Anion Gap 10, Estimated GFR > 60, BUN/Creatinine Ratio 18.6 Impression/Plan Impression/Plan Impression/Plan: Impression 86 year old woman * partially loculated pleural effusion -significantly enlarged with mediastinal shift * community acquired pneumonia left side * a.fib on xarelto * ROBINSON improved * Delirium Plan -s/p pigtail catheter -f/u goals of care -if okay with family would dc chest tube DVT prophylaxis at all times DNR/DNI
--- NOTE | 2017-04-07 11:42 | PN- Cardiology ---
Subjective Subjective: Baseline confusion unchanged. She apparently failed swallow evaluation. Objective Vital Signs and I&Os Vital Signs Date Time Temp Pulse Resp B/P B/P Pulse O2 O2 Flow FiO2 Mean Ox Delivery Rate 04/07 0937 100 110/58 04/07 0816 94 Nasal 3.0L Cannula 04/06 2252 103 132/70 04/06 2231 Nasal 2.0L Cannula 04/06 2219 97.5 89 20 97 Nasal Cannula 04/06 2200 120 132/70 04/06 1722 94 Nasal 2.0L Cannula 04/06 1627 116/60 04/06 1400 97.9 97 20 120/62 95 04/06 1219 114/64 Intake & Output 04/07 1600 04/07 0800 04/07 0000 04/06 1600 04/06 0800 04/06 0000 Intake Total 300 300 700 50 110 Output Total 15 0 30 30 100 Balance 285 300 670 20 10 Intake, IV 300 300 500 10 Intake, Oral 0 0 200 50 100 Number 1 Bowel Movements Output, Chest 15 0 30 30 100 Tube Drainage Physical Exam: General: Awake but confused Eyes: No obvious scleral icterus. HEENT: No jugular venous distention or abnormal jugular venous pulsations. Cardiovascular: Normal intensity S1/S2. Irregular tachycardia Respiratory: Decreased air entry on the left; status post pigtail catheter Abdomen: Soft Msk: s/p amputation; trace edema Skin: Warm Neuro: Demented but awake Current Medications: Current Medications Sig/Julio Start time Last Medication Dose Route Stop Time Status Admin Acetaminophen 1,000 MG Q6P PRN 03/24 1945 AC 03/30 IV 1342 Albuterol Sulfate 3 ML Q4-PRN PRN 03/28 2345 AC INH Atorvastatin Calcium 10 MG 1700 03/25 1700 AC 04/06 PO 1626 Bisacodyl 5 MG DAILY NEEDED PRN 03/26 0745 AC 03/26 PO 0955 Bisacodyl 10 MG DAILY NEEDED PRN 03/26 0745 AC 03/26 [place] 1759 Ceftriaxone Sodium 1,000 MG DAILY 04/07 1000 AC 04/07 IV 0937 Dextrose/Water 1,000 ML Q13H 04/06 1000 DC 04/06 IV 04/06 2259 1143 Diltiazem HCl 30 MG Q6 04/04 1200 AC 04/06 PO 2252 Insulin Aspart 0 TIDAC 03/25 1700 DC 04/06 SC 1627 Insulin Human Regular 0 Q6 04/07 0600 AC SC Lorazepam 0.25 MG AT BEDTIME 04/02 2200 AC 04/06 IV 1959 Metoprolol Succinate 12.5 MG DAILY 04/02 1505 AC 04/07 PO 0937 Omeprazole 40 MG DAILY AC 04/01 1052 AC 04/01 PO 1348 Phosphate 250 MG PC AND AT BEDTIME 04/01 1300 AC 04/07 PO 0936 Prednisone 2.5 MG DAILY 03/26 1649 AC 04/07 PO 0936 Rivaroxaban 15 MG 1700 03/30 1700 AC 04/06 PO 1627 Senna/Docusate Sodium 2 TAB DAILY PRN 03/25 1815 AC 03/26 PO 0955 Results Last 48 Hrs of Labs/Mics: Laboratory Tests 04/07/17629: Anion Gap 10, Estimated GFR > 60, BUN/Creatinine Ratio 18.6 04/06/17629: Anion Gap 10, Estimated GFR > 60, BUN/Creatinine Ratio 18.6 Recent Imaging Studies: Telemetry tracings were personally reviewed and show atrial fibrillation with elevated ventricular response rate Assessment/Plan Assessment/Plan 1 Community acquired pneumonia in the left lower lobe and partially loculated left pleural effusion s/p pigtail catheter 2. Atrial fibrillation persisted and chronic rate control strategy 3. On oral anticoagulation with Xarelto 4. Dementia 5. History of pulmonary embolism and deep vein thrombosis 6. Chronic diastolic congestive heart failure. No acute CHF at this time 7. Left bundle branch block 8. Hx of Hypertension 9. 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 Diabetes mellitus 11. Rheumatoid arthritis Patient remains hemodynamically stable. Still intermittently refusing medications and heart rate remains above goal. I recommend increasing the Toprol -XL to 25 mg daily. If difficulty giving her oral medications can consider giving another one time dose of digoxin 0.5 mg IV. Long-term prognosis is guarded. Continue to discuss goals of care. Chest tube management per pulmonary. Neftali Duggan MD [facility] Continue telemetry? Yes
[2017-04-07 15:02] VITALS: BP 110/60
[2017-04-08 06:40] VITALS: BP 114/64
--- NOTE | 2017-04-08 07:29 | PN- Housestaff ---
Jamal BLAKELY,Senthil 04/08/17 0728: Subjective Follow-up For: Loculated paraneumonic effusion A.fib with RVR Delirium Tele-Events Since Last Visit: Atrial Fibrillation HR: 99 -121, x1 at 150 BPM PVCs Subjective: Patient was seen and examined today. Patient arousable but not answering questions. Per nursing refusing medication and oxygen. Review of Systems Constitutional: Reports: no symptoms, see HPI. Cardiovascular: Reports: no symptoms, see HPI. Respiratory: Reports: no symptoms, see HPI. Gastrointestinal: Reports: no symptoms, see HPI. Genitourinary: Reports: no symptoms, see HPI. Musculoskeletal: Reports: no symptoms, see HPI. Neurological/Psychological: Reports: confusion. Objective Last 24 Hrs of Vital Signs/I&O Vital Signs Date Time Temp Pulse Resp B/P B/P Pulse O2 O2 Flow FiO2 Mean Ox Delivery Rate 04/08 0640 98.1 128 20 114/64 87 Room Air 04/07 2204 98.7 105 20 97 Nasal Cannula 04/07 2138 Nasal 3.0L Cannula 04/07 1757 122/70 04/07 1638 94 Nasal 2.0L Cannula 04/07 1502 97.8 109 18 110/60 92 04/07 1437 111 128/64 04/07 0937 100 110/58 Intake & Output 04/08 1600 04/08 0800 04/08 0000 Intake Total 525 225 Output Total 10 Balance 515 225 Intake, IV 525 225 Output, Chest 10 Tube Drainage Physical Exam General Appearance: No Acute Distress, arousable but drowsy HEENT: Atraumatic, Mucous Membr. moist/pink Cardiovascular: Normal S1, Normal S2, irregular rate Lungs: coarse breath sounds heard bilaterally Abdomen: Normal Bowel Sounds, Soft, No Tenderness Extremities: unchanged from previous day Current Medications: Current Medications Sig/Julio Start time Last Medication Dose Route Stop Time Status Admin Acetaminophen 1,000 MG Q6P PRN 03/24 1945 DC 03/30 IV 1342 Albuterol Sulfate 3 ML Q4-PRN PRN 03/28 2345 AC INH Atorvastatin Calcium 10 MG 1700 03/25 1700 AC 04/07 PO 1628 Bisacodyl 5 MG DAILY NEEDED PRN 03/26 0745 AC 03/26 PO 0955 Bisacodyl 10 MG DAILY NEEDED PRN 03/26 0745 AC 01/19 AR 1759 Ceftriaxone Sodium 1,000 MG DAILY 04/07 1000 AC 04/07 IV 0937 Dextrose/Water 1,000 ML Q20H 04/08 0830 UNVr IV 04/09 0429 Dextrose/Water 1,000 ML ONCE ONE 04/07 1500 AC 04/07 IV 04/08 1059 1627 Diltiazem HCl 30 MG Q6 04/04 1200 AC 04/07 PO 1757 Insulin Human Regular 0 Q6 04/07 0600 AC 04/08 SC 0703 Lorazepam 0.25 MG AT BEDTIME 04/02 2200 AC 04/07 IV 2125 Metoprolol Succinate 25 MG DAILY 04/08 1000 AC PO Metoprolol Succinate 12.5 MG DAILY 04/02 1505 DC 04/07 PO 0937 Omeprazole 40 MG DAILY AC 04/01 1052 AC 04/01 PO 1348 Phosphate 250 MG PC AND AT BEDTIME 04/01 1300 DC 04/07 PO 1438 Prednisone 2.5 MG DAILY 03/26 1649 AC 04/07 PO 0936 Rivaroxaban 15 MG 1700 03/30 1700 AC 04/07 PO 1628 Senna/Docusate Sodium 2 TAB DAILY PRN 03/25 1815 AC 03/26 PO 0955 Last 24 Hrs of Lab/Raghu Results Last 24 Hrs of Labs/Mics: Laboratory Tests 04/08/17 0707: Sodium Pending, Potassium Pending, Chloride Pending, Carbon Dioxide Pending, Anion Gap Pending, BUN Pending, Creatinine Pending, BUN/Creatinine Ratio Pending Lines/Diet/Fluids Catheters/Tubes: pleurx catheter draining minimal yellow colored fluid Assessment/Plan Assessment: 86 y old female with a PMH of dementia, A. fib on Xeralto, peripheral artery disease, chronic diastolic heart failure, rheumatoid arthritis, diabetes mellitus who presents to [facility] with her family very confused and not able to provide history. Problem List: 1. Partially loculated, complicated parapneumonic pleural effusion 2. Community-acquired pneumonia 3. Acute kidney injury 4. Delirium 5. Atrial fibrillation with rapid ventricular rate 6. Hypernatermia Today: 04/[address] May met with patient's daughter today. She is agreeable to switching patient to comfort care measures. Will discontinue IV antibiotics and IV fluids. Will change patient to a regular diet to allow her to eat. Will keep patient comfortable with pain medication. Will no longer be checking labs. Patient will likely go home with home hospice and nursing care. Please see above plan. #Hypernatremia Patient's Na is 146. Patient switched to comfort measures. Will give PO hydration as tolerated by patient. Will no longer check labs. #Delirium Patient's mental status continues to waxes and wane. Patient switched to comfort care. Will give morphine as needed for pain and agitation. #Partially loculated, complicated parapneumonic pleural effusion: Patient initially presented with productive cough, confusion, and shortness of breath. With CT scan showing: a moderate to large partially loculated pleural effusion on CT scan. Cultures were negative. Patient was started on ceftriaxone and azithromycin. IR and pulm initially decided not to drain the effusion on . TTE showed EF 60-65% and RV pressure 35 mmHg. She subsequently decompensated with desaturation and fever and was transferred to the ICU on 03/28. Antibiotics were upgraded to vancomycin and ceftazidine. Repeat imaging revealed that the pleural effusion was enlarged with complete opacification of left hemithorax and a new mild rightward shift of the mediastinum. On 03/29/2017, IR performed ultrasound-guided thoracocentesis draining 500 mL of fluid and inserting a Pleurx catheter with analysis revealing an exudative fluid meeting light's criteria with pleural fluid LDH to serum LDH >0.6. Exudative pleural fluid with low glucose possible etiologies include infectious causes such as TB, malignancy, rheumatoid pleurisy, empyema. Cytology showed lymphocytes, neutrophils, rare histiocytes and red blood cells but features of malignancy were not identified. TB is unlikely with mesothelial cells of > 5%. Patient has significant rheumatoid arthritis which is a possible etiology however pleural rheumatoid factor is <15.9. Patient is currently being treated for infectious etiology covered with IV Ceftriaxone. Repeat imaging on 03/30/2017 did not show significant improvement. IR readjusted the pigtail catheter at the bedside and improved the drainage. The Pleurx catheter drainage is starting to slow down. Per pulmonology recommendations and per family's consent the catheter will be removed. -Appreciate pulmonology recommendations -Appreciate cardiology recommendations -Discontinued antibiotics -Appreciate ID recommendations -Pleurx catheter removal by IR today #Atrial fibrillation with rapid ventricular rate: Her rates have been elevated. She has also had some intermittent hypotension. Her rates overnight were 80-120. She is intermittently refusing diltiazem making it difficult to control her rates. Patient this morning took her diltiazem and metoprolol heart rate has decreased to < 110 bpm. - Xarelto 15mg PO daily for anticoagulation - Diltiazem 30 mg every 6 hours - Metoprolol XL 25mg daily- changed to Metoprolol tartrate 12.5mg BID as patient needs it crushed - Cardiology is on board. Appreciate recommendations #Acute kidney injury: Patient presented with creatinine 1.4. Baseline is 1.0. Likely prerenal azotemia in the setting of infection. Resolved. -Cr: 0.7 #Constipation: -Bisacodyl when necessary -Senna when necessary #Chronic medical problems: -discontinued insulin, patient switched to comfort care DVT prophylaxis with rivaroxaban NPO with IV fluids DNR/DNI Placement: Prognosis is poor. In the process of setting up home hospice. Problem List: 1. Hypernatremia 2. Pleural effusion Pain Ratin Pain Location: does not specify Pain Goal: Remain pain free Pain Plan: tylenol PRN Tomorrow's Labs & Rationales: bep- hypernatremia AyanBolagunnar 04/08/17 1304: Attending MD Review Statement Attending Statement Attending MD Statement: examined this patient, discuss w/resident/PA/[employer], agreed w/resident/PA/[employer], discussed with family, reviewed EMR data (avail), discussed with nursing, discussed with case mgmt Attending Assessment/Plan: Had a discussion with daughter yesterday about removing pig tail catheter and she was ok with it. Pig tail catheter removed. She is working closely with case managment to arrange home care and plan is to discharge pt to home hospice. will talk with her today about stopping abx and iv fluids and making her comfort care while she is in the hospital and stopping lab checks.
--- NOTE | 2017-04-08 10:25 | PN- Pulmonary ---
See Addendum Subjective HPI/Critical Care Issues: pt seen and examined no major events awaiting family decision regarding goals of care Objective Current Medications: Current Medications Sig/Julio Start time Last Medication Dose Route Stop Time Status Admin Acetaminophen 1,000 MG Q6P PRN 03/24 1945 DC 03/30 IV 1342 Albuterol Sulfate 3 ML Q4-PRN PRN 03/28 2345 AC INH Atorvastatin Calcium 10 MG 1700 03/25 1700 AC 04/07 PO 1628 Bisacodyl 5 MG DAILY NEEDED PRN 03/26 0745 AC 03/26 PO 0955 Bisacodyl 10 MG DAILY NEEDED PRN 03/26 0745 AC 03/26 [place] 1759 Ceftriaxone Sodium 1,000 MG DAILY 04/07 1000 AC 04/08 IV 0841 Dextrose/Water 1,000 ML Q20H 04/08 0830 AC 04/08 IV 04/09 0429 0839 Dextrose/Water 1,000 ML ONCE ONE 04/07 1500 AC 04/07 IV 04/08 1059 1627 Diltiazem HCl 30 MG Q6 04/04 1200 AC 04/08 PO 0840 Insulin Human Regular 4 UNITS .STK-MED ONE 04/08 0101 DC IV 04/08 0102 Insulin Human Regular 0 Q6 04/07 0600 AC 04/08 SC 0703 Lorazepam 0.25 MG AT BEDTIME 04/02 2200 AC 04/07 IV 2125 Metoprolol Succinate 25 MG DAILY 04/08 1000 CAN PO Metoprolol Succinate 12.5 MG DAILY 04/02 1505 DC 04/07 PO 0937 Metoprolol Tartrate 12.5 MG BID 04/08 1000 AC PO Omeprazole 40 MG DAILY AC 04/01 1052 AC 04/01 PO 1348 Phosphate 250 MG PC AND AT BEDTIME 04/01 1300 DC 04/07 PO 1438 Prednisone 2.5 MG DAILY 03/26 1649 AC 04/08 PO 0840 Rivaroxaban 15 MG 1700 03/30 1700 AC 04/07 PO 1628 Senna/Docusate Sodium 2 TAB DAILY PRN 03/25 1815 AC 03/26 PO 0955 Vital Signs & I&O Last 24 Hrs of Vitals and I&O: Vital Signs Date Time Temp Pulse Resp B/P B/P Pulse O2 O2 Flow FiO2 Mean Ox Delivery Rate 04/08 0936 97 Nasal 2.0L Cannula 04/08 0840 128 120/62 04/08 0838 96 Room Air 04/08 0640 98.1 128 20 114/64 87 Room Air 04/07 2204 98.7 105 20 97 Nasal Cannula 04/07 2138 Nasal 3.0L Cannula 04/07 1757 122/70 04/07 1638 94 Nasal 2.0L Cannula 04/07 1502 97.8 109 18 110/60 92 04/07 1437 111 128/64 Intake & Output 04/08 1600 04/08 0800 04/08 0000 Intake Total 525 225 Output Total 10 Balance 515 225 Intake, IV 525 225 Output, Chest 10 Tube Drainage Exam Other Physical Findings: Generally - Awake Head and neck - normocephalic, atraumatic, EOMI grossly intact Cardiovascular - S1, S2, systolic murmur Lungs -rare rhonchi with diminished breath sounds at the bases Abdomen - Bowel sounds positive, soft, non-tender Extremities - without edema, hx bka Results Last 24 Hrs of Lab Results: Laboratory Tests 04/08/17 0707: Anion Gap 11, Estimated GFR > 60, BUN/Creatinine Ratio 15.7 Impression/Plan Impression/Plan Impression/Plan: Impression 86 year old woman * partially loculated pleural effusion -significantly enlarged with mediastinal shift * community acquired pneumonia left side * a.fib on xarelto * ROBINSON improved * Delirium Plan -s/p pigtail catheter -f/u goals of care -if okay with family would dc chest tube DVT prophylaxis at all times DNR/DNI
--- NOTE | 2017-04-08 10:29 | PN- Cardiology ---
Subjective Subjective: Telemetry reveals atrial fibrillation with ventricular rate of around 102. Patient awakens and admits to no distress. Objective Vital Signs and I&Os Vital Signs Date Time Temp Pulse Resp B/P B/P Pulse O2 O2 Flow FiO2 Mean Ox Delivery Rate 04/08 0936 97 Nasal 2.0L Cannula 04/08 0840 128 120/62 04/08 0838 96 Room Air 04/08 0640 98.1 128 20 114/64 87 Room Air 04/07 2204 98.7 105 20 97 Nasal Cannula 04/07 2138 Nasal 3.0L Cannula 04/07 1757 122/70 04/07 1638 94 Nasal 2.0L Cannula 04/07 1502 97.8 109 18 110/60 92 04/07 1437 111 128/64 Intake & Output 04/08 1600 04/08 0800 04/08 0000 04/07 1600 04/07 0800 04/07 0000 Intake Total 525 225 30 300 300 Output Total 10 15 15 0 Balance 515 225 15 285 300 Intake, IV 525 225 30 300 300 Intake, Oral 0 0 Number 1 Bowel Movements Output, Chest 10 15 15 0 Tube Drainage Physical Exam: Gen. exam patient comfortable resting Head normocephalic atraumatic Eyes sclera anicteric conjunctiva showed no pallor extraocular muscles were normal Chest lungs decreased air entry the left base Heart irregular rhythm with a ventricle rate around 100 Abdomen soft no organomegaly nontender. extremities right above-knee amputation Left forefoot amputation neurological was not evaluated Current Medications: Current Medications Sig/Julio Start time Last Medication Dose Route Stop Time Status Admin Acetaminophen 1,000 MG Q6P PRN 03/24 1945 DC 03/30 IV 1342 Albuterol Sulfate 3 ML Q4-PRN PRN 03/28 2345 AC INH Atorvastatin Calcium 10 MG 1700 03/25 1700 AC 04/07 PO 1628 Bisacodyl 5 MG DAILY NEEDED PRN 03/26 0745 AC 03/26 PO 0955 Bisacodyl 10 MG DAILY NEEDED PRN 03/26 0745 AC 03/26 [place] 1759 Ceftriaxone Sodium 1,000 MG DAILY 04/07 1000 AC 04/08 IV 0841 Dextrose/Water 1,000 ML Q20H 04/08 0830 AC 04/08 IV 04/09 0429 0839 Dextrose/Water 1,000 ML ONCE ONE 04/07 1500 AC 04/07 IV 04/08 1059 1627 Diltiazem HCl 30 MG Q6 04/04 1200 AC 04/08 PO 0840 Insulin Human Regular 4 UNITS .STK-MED ONE 04/08 0101 DC IV 04/08 0102 Insulin Human Regular 0 Q6 04/07 0600 AC 04/08 SC 0703 Lorazepam 0.25 MG AT BEDTIME 04/02 2200 AC 04/07 IV 2125 Metoprolol Succinate 25 MG DAILY 04/08 1000 CAN PO Metoprolol Succinate 12.5 MG DAILY 04/02 1505 DC 04/07 PO 0937 Metoprolol Tartrate 12.5 MG BID 04/08 1000 AC PO Omeprazole 40 MG DAILY AC 04/01 1052 AC 04/01 PO 1348 Phosphate 250 MG PC AND AT BEDTIME 04/01 1300 DC 04/07 PO 1438 Prednisone 2.5 MG DAILY 03/26 1649 AC 04/08 PO 0840 Rivaroxaban 15 MG 1700 03/30 1700 AC 04/07 PO 1628 Senna/Docusate Sodium 2 TAB DAILY PRN 03/25 1815 AC 03/26 PO 0955 Results Last 48 Hrs of Labs/Mics: Laboratory Tests 04/08/17 0707: Anion Gap 11, Estimated GFR > 60, BUN/Creatinine Ratio 15.7 04/07/17 0630: Anion Gap 10, Estimated GFR > 60, BUN/Creatinine Ratio 18.6 Assessment/Plan Assessment/Plan 1 Community acquired pneumonia in the left lower lobe and partially loculated left pleural effusion s/p pigtail catheter 2. Atrial fibrillation persisted and chronic rate control strategy 3. On oral anticoagulation with Xarelto 4. Dementia 5. History of pulmonary embolism and deep vein thrombosis 6. Chronic diastolic congestive heart failure. No acute CHF at this time 7. Left bundle branch block 8. Hx of Hypertension 9. 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 Diabetes mellitus 11. Rheumatoid arthritis Apparently there has been noncompliant with medications. Metoprolol was just started. Code status is being addressed possible hospice. Continue telemetry? Yes
--- NOTE | 2017-04-08 11:40 | Patient Discharge Instructions ---
Discharge Instructions General Discharge Information You were seen/treated for: Pleural Effusions You had these procedures: Chest tube placement and removal Diet Continue normal diet: No Recommended Diet: Diabetic Activity Full Activity/No Limits: No Activity Self Limited: Yes Acute Coronary Syndrome Inclusion Criteria At DC or during hospital stay patient has or had the following: ACS DIAGNOSIS No Discharge Core Measures Meds if any: Prescribed or Continued at Discharge Meds if any: NOT Prescribed or Continued at Discharge Congestive Heart Failure Inclusion Criteria At DC or during hospital stay patient has or had the following: CHF DIAGNOSIS No Discharge Core Measures Meds if any: Prescribed or Continued at Discharge Meds if any: NOT Prescribed or Continued at Discharge Cerebrovascular accident Inclusion Criteria At DC or during hospital stay patient has or had the following: CVA/TIA Diagnosis No Discharge Core Measures Meds if any: Prescribed or Continued at Discharge Meds if any: NOT Prescribed or Continued at Discharge Venous thromboembolism Inclusion Criteria VTE Diagnosis No VTE Type NONE VTE Confirmed by (Test) NONE Discharge Core Measures - Per Current guidelines, there needs to be overlap - treatment for the first 5 days of Warfarin therapy. - If discharged on Warfarin prior to 5 days of - overlap therapy, the patient will need to be - assessed for post discharge needs including - *Post discharge parental anticoagulation - *Warfarin and/or parental anticoagulation education - *Follow up date to check INR post discharge At least 5 days overlap therapy as Inpatient No Meds if any: Prescribed or Continued at Discharge Note: Overlap Therapy is Warfarin and Anticoagulant Meds if any: NOT Prescribed or Continued at Discharge
--- NOTE | 2017-04-08 11:47 | INTERVENTIONAL RADIOLOGY RPT ---
PROCEDURE: REMOVAL OF LEFT-SIDED CHEST TUBE CLINICAL INFORMATION: 86-year-old female in whom a left-sided chest tube was placed on 03/29/2017. The lungs demonstrate interval improvement in aeration. Request made for removal of pigtail catheter. PROCEDURE IN DETAIL: The left back and catheter was prepped in a sterile fashion. The StatLock was removed and the retaining suture was cut. A Xeroform bandage was placed over the insertion site and the catheter was removed with gentle pressure. A sterile dressing was placed. No complications. The patient returned to her bed in stable condition. IMPRESSION: Successful removal of left-sided chest tube.
--- NOTE | 2017-04-08 14:10 | Event Note ---
Event Note Event Note: Per conversation with the family, patient code status will be changed to comfort care and abx and IV fluids will be stopped. unnecessary meds will be stopped as well.
--- NOTE | 2017-04-08 14:53 | PN- Infect Dx ---
Subjective Subjective: Afebrile without complaints Objective Last 24 Hrs of Vital Signs/I&O Vital Signs Date Time Temp Pulse Resp B/P B/P Pulse O2 O2 Flow FiO2 Mean Ox Delivery Rate 04/08 1107 114 118/60 04/08 0936 97 Nasal 2.0L Cannula 04/08 0840 128 120/62 04/08 0838 96 Room Air 04/08 0640 98.1 128 20 114/64 87 Room Air 04/07 2204 98.7 105 20 97 Nasal Cannula 04/07 2138 Nasal 3.0L Cannula 04/07 1757 122/70 04/07 1638 94 Nasal 2.0L Cannula 04/07 1502 97.8 109 18 110/60 92 Intake & Output 04/08 1600 04/08 0800 04/08 0000 Intake Total 500 525 225 Output Total 10 Balance 500 515 225 Intake, IV 400 525 225 Intake, Oral 100 Output, Chest 10 Tube Drainage Physical Exam Other Physical Findings: She appears comfortable in no acute distress Lungs clear anteriorly; pigtail catheter removed Heart irregular rhythm with no murmur Extremities no cyanosis, clubbing or edema Results Last 24 Hours of Lab Results: Laboratory Tests 04/08 0707 Chemistry Sodium (137 - 145 mmol/L) 146 H Potassium (3.5 - 5.1 mmol/L) 4.0 Chloride (98 - 107 mmol/L) 106 Carbon Dioxide (22 - 30 mmol/L) 29 Anion Gap (5 - 16) 11 BUN (7 - 17 mg/dL) 11 Creatinine (0.5 - 1.0 mg/dL) 0.7 Estimated GFR (>60 ml/min) > 60 BUN/Creatinine Ratio (7 - 25 %) 15.7 Last 24 Hours of Raghu Results: No new cultures Assessment/Plan Impression: Stable, with temperatures and white blood cell count remaining normal, on Ceftriaxone, Day 14 of treatment for a presumed left lower lobe pneumonia, complicated by a complex parapneumonic effusion, with improvement on her most recent chest x-ray and with decreased drainage from the catheter, status post removal earlier today. Suggestion: 1. Discontinue Ceftriaxone and follow off antibiotics
[2017-04-08 15:22] VITALS: BP 122/64
[2017-04-08 22:27] VITALS: BP 116/60
[2017-04-09 05:47] VITALS: BP 110/52
--- NOTE | 2017-04-09 07:43 | Transfer of Care Summary ---
Hospital Course Course Hospital Course: 86 y old female with a PMH of dementia, A. fib on Xeralto, peripheral artery disease, chronic diastolic heart failure, rheumatoid arthritis, diabetes mellitus who presents to [facility] ED with her family very confused and not able to provide history. Problem List: 1. Partially loculated, complicated parapneumonic pleural effusion 2. Community-acquired pneumonia 3. Acute kidney injury 4. Delirium 5. Atrial fibrillation with rapid ventricular rate 6. Hypernatermia #Partially loculated, complicated parapneumonic pleural effusion: Patient initially presented with productive cough, confusion, and shortness of breath. With CT scan showing: a moderate to large partially loculated pleural effusion on CT scan. Cultures were negative. Patient was started on ceftriaxone and azithromycin. IR and pulm initially decided not to drain the effusion on . TTE showed EF 60-65% and RV pressure 35 mmHg. She subsequently decompensated with desaturation and fever and was transferred to the ICU on 03/28. Antibiotics were upgraded to vancomycin and ceftazidine. Repeat imaging revealed that the pleural effusion was enlarged with complete opacification of left hemithorax and a new mild rightward shift of the mediastinum. On 03/29/2017, IR performed ultrasound-guided thoracocentesis draining 500 mL of fluid and inserting a Pleurx catheter with analysis revealing an exudative fluid meeting light's criteria with pleural fluid LDH to serum LDH >0.6. Exudative pleural fluid with low glucose possible etiologies include infectious causes such as TB, malignancy, rheumatoid pleurisy, empyema. Cytology showed lymphocytes, neutrophils, rare histiocytes and red blood cells but features of malignancy were not identified. TB is unlikely with mesothelial cells of > 5%. Patient has significant rheumatoid arthritis which is a possible etiology however pleural rheumatoid factor is <15.9. Patient was treated for infectious etiology covered with IV Ceftriaxone. Repeat imaging on 03/30/2017 did not show significant improvement. IR readjusted the pigtail catheter at the bedside and improved the drainage. Pleurx catheter drainage started to slow down and was removed by IR on 04/08. 1. Atrial fibrillation with rapid ventricular rate: Patient's HR remained elevated and fluctuated between 80s to 120s. Difficulty controlling rate was secondary to patient's noncompliance and intermittent refusal of diltiazem. Patient was seen by cardiology. Patient was placed on diltiazem 30mg q6h and metoprolol 12.5mg BID for rate control and xarelto 15mg PO daily for anticoagulation. 2. Hypernatremia Patient had hypernatremia likely secondary to poor PO intake. Patient was started on gentle IV hydration with improvement in sodium. IV fluids were discontinued upon transitioning patient to comfort care. No longer continuing to check sodium level at this time. 3. Delirium Patient's mental status continues to waxes and wane. Patient switched to comfort care. Will give morphine as needed for pain and agitation. 4. ROBINSON Patient presented with creatinine 1.4. Baseline is 1.0. Likely prerenal azotemia in the setting of infection. Resolved. -Cr: 0.7 5. Constipation: -Bisacodyl when necessary -Senna when necessary 6. Chronic medical problems: -discontinued insulin, patient switched to comfort care DVT prophylaxis with rivaroxaban Diet: Regular diet DNR/DNI Dispo/Placement: Prognosis is poor. In the process of setting up home hospice. Patient's daughter agreeable to switching patient to comfort care measures. Discontinued IV antibiotics, IV fluids and diagnostic testing including bloodwork. Will change patient to a regular diet to allow her to eat. Will keep patient comfortable with pain medication. Will no longer be checking labs. Patient will likely go home with home hospice and nursing care. Assessment/Plan: See above
--- NOTE | 2017-04-09 10:26 | PN- Housestaff ---
Nayana Palomo MD 04/09/17 1026: Subjective Follow-up For: 1. Partially loculated, complicated parapneumonic pleural effusion sp CHEST TUBE REMOVAL 2. Community-acquired pneumonia 3. Acute kidney injury 4. Delirium 5. Atrial fibrillation with rapid ventricular rate 6. Hypernatermia Subjective: Patient is upset this morning about her IV line that she says is irritating her. She is weak and does not answer questions appropriately. Does deny chest pain and SOB. Review of Systems Constitutional: Reports: weakness. Cardiovascular: Reports: no symptoms. Respiratory: Reports: no symptoms. Gastrointestinal: Reports: no symptoms. Genitourinary: Reports: no symptoms. Musculoskeletal: Reports: no symptoms. Objective Last 24 Hrs of Vital Signs/I&O Vital Signs Date Time Temp Pulse Resp B/P B/P Pulse O2 O2 Flow FiO2 Mean Ox Delivery Rate 04/09 1404 97.8 100 20 120/60 93 Nasal 3.0L Cannula 04/09 1332 100 100/50 04/09 0547 98.1 100 19 110/52 93 04/09 0543 100 110/52 04/09 0000 94 Nasal 3.0L Cannula 04/08 2227 98.0 105 20 116/60 94 Nasal Cannula 04/08 2211 105 116/60 Intake & Output 04/09 1600 04/09 0800 04/09 0000 Intake Total 60 60 Output Total Balance 60 60 Intake, IV 10 10 Intake, Oral 50 50 Physical Exam General Appearance: Alert, Mild Distress Skin: No Rashes, No Breakdown, No Significant Lesion Skin Temp/Moisture Exam: Warm/Dry Sepsis Skin Exam (color): Normal for Ethnicity HEENT: Atraumatic Cardiovascular: Regular Rate, Normal S1, Normal S2, No Murmurs Lungs: Clear to Auscultation Abdomen: Normal Bowel Sounds, Soft, No Tenderness Neurological: Normal Speech Extremities: No Clubbing, No Cyanosis, No Edema, No Tenderness/Swelling, AMPUTATED TOES Current Medications: Current Medications Sig/Julio Start time Last Medication Dose Route Stop Time Status Admin Acetaminophen 650 MG Q4P PRN 04/08 1415 DCD PO Albuterol Sulfate 3 ML Q4-PRN PRN 03/28 2345 DCD INH Bisacodyl 5 MG DAILY NEEDED PRN 03/26 0745 DCD 03/26 PO 0955 Diltiazem HCl 30 MG Q6 04/04 1200 DCD 04/09 PO 1332 Guaifenesin 10 ML .STK-MED ONE 04/08 2042 DC PO 04/08 2043 Guaifenesin/ 10 ML ONCE ONE 04/08 2044 DC 04/08 Dextromethorphan PO 04/08 Lorazepam 0.25 MG AT BEDTIME 04/02 2200 DCD 04/08 IV 2210 Metoprolol Tartrate 12.5 MG BID 04/08 1000 DCD 04/08 PO 2211 Morphine Sulfate 2 MG Q6P PRN 04/08 1530 DCD IV Omeprazole 40 MG DAILY AC 04/01 1052 DCD 04/09 PO 0543 Prednisone 2.5 MG DAILY 03/26 1649 DCD 04/08 PO 0840 Senna/Docusate Sodium 2 TAB DAILY PRN 03/25 1815 DCD 03/26 PO 0955 Assessment/Plan Assessment: 86 y old female with a PMH of dementia, A. fib on Xeralto, peripheral artery disease, chronic diastolic heart failure, rheumatoid arthritis, diabetes mellitus who presents to [facility] ED with her family very confused and not able to provide history. Problem List: 1. Partially loculated, complicated parapneumonic pleural effusion 2. Community-acquired pneumonia 3. Acute kidney injury 4. Delirium 5. Atrial fibrillation with rapid ventricular rate 6. Hypernatermia Patient's family is agreeable to switching patient to comfort care measures as of 04/08. We did discontinue IV antibiotics and IV fluids. Will changed patient to a regular diet to allow her to eat. We did keep patient comfortable with pain medication. No longer be checking labs. PATIENT WAS EVALUATED BY HOSPICE AND WILL GO TO INPATIENT HOSPICE. Please see above plan. #Hypernatremia Patient switched to comfort measures. Will give PO hydration as tolerated by patient. Will no longer check labs. #Delirium Patient's mental status continues to waxes and wane. Patient switched to comfort care. Will give morphine as needed for pain and agitation. #Partially loculated, complicated parapneumonic pleural effusion: Currently 93% O2 sat on 3L Patient initially presented with productive cough, confusion, and shortness of breath. With CT scan showing: a moderate to large partially loculated pleural effusion on CT scan. Cultures were negative. Patient was started on ceftriaxone and azithromycin. IR and pulm initially decided not to drain the effusion on . TTE showed EF 60-65% and RV pressure 35 mmHg. She subsequently decompensated with desaturation and fever and was transferred to the ICU on 03/28. Antibiotics were upgraded to vancomycin and ceftazidine. Repeat imaging revealed that the pleural effusion was enlarged with complete opacification of left hemithorax and a new mild rightward shift of the mediastinum. On 03/29/2017, IR performed ultrasound-guided thoracocentesis draining 500 mL of fluid and inserting a Pleurx catheter with analysis revealing an exudative fluid meeting light's criteria with pleural fluid LDH to serum LDH >0.6. Exudative pleural fluid with low glucose possible etiologies include infectious causes such as TB, malignancy, rheumatoid pleurisy, empyema. Cytology showed lymphocytes, neutrophils, rare histiocytes and red blood cells but features of malignancy were not identified. TB is unlikely with mesothelial cells of > 5%. Patient has significant rheumatoid arthritis which is a possible etiology however pleural rheumatoid factor is <15.9. PATIENT IS CURRENTLY COMFORT AND OFF ABX Repeat imaging on 03/30/2017 did not show significant improvement. IR readjusted the pigtail catheter at the bedside and improved the drainage. Pleurx catheter removal by IR yesterday #Atrial fibrillation with rapid ventricular rate: Her rates have been elevated. She has also had some intermittent hypotension. - Xarelto 15mg PO daily for anticoagulation - Diltiazem 180 ER #Acute kidney injury: Patient presented with creatinine 1.4. Baseline is 1.0. Likely prerenal azotemia in the setting of infection. Resolved. #Constipation: -Bisacodyl when necessary -Senna when necessary #Chronic medical problems: -discontinued insulin, patient switched to comfort care and now hospice DVT prophylaxis with rivaroxaban DIET ORDERED FOR PATIENT SHE IS HOSPICE DNR/DNI --> HOSPICE. Problem List: 1. Atrial fibrillation 2. Hospice care 3. Delirium Pain Ratin Pain Location: NA Pain Goal: Remain pain free Pain Plan: MORPHINE 2MG Q6PRN Tomorrow's Labs & Rationales: NONE Kaitlin BLAKELYMary 04/09/17 1449: Attending MD Review Statement Attending Statement Attending MD Statement: examined this patient, discuss w/resident/PA/[employer], agreed w/resident/PA/[employer]TER, discussed with family, discussed with nursing, discussed with case mgmt, reviewed images Attending Assessment/Plan: Recieved this patient as a transfer from telemetry today. This is an 86-year- old female who's been here since March 24. She has multiple medical problems including dementia, A. fib, peripheral arterial disease, diabetes, rheumatoid arthritis, hypernatremia and whose course has been complicated with development of parapneumonic- loculated effusion requiring drainage. At this point given all of the problems and the overall poor prognosis she's comfort measures. We are awaiting a hospice evaluation. Her by mouth intake is very poor and I think she would qualify for inpatient hospice.
[2017-04-09 14:04] VITALS: BP 120/60
--- NOTE | 2017-04-09 14:27 | Discharge Summary ---
Visit Information Visit Dates Admission Date: 03/24/17 Discharge Date: 04/09/17 Hospital Course Course Attending Physician: Kaitlin BLAKELY,Mary Herrera Primary Care Physician: Yusuf BLAKELY,[facility] Course: 86 y old female with a PMH of dementia, A. fib on Xeralto, peripheral artery disease, chronic diastolic heart failure, rheumatoid arthritis, diabetes mellitus who presents to [facility] ED with her family very confused and not able to provide history. Problem List: 1. Partially loculated, complicated parapneumonic pleural effusion 2. Community-acquired pneumonia 3. Acute kidney injury 4. Delirium 5. Atrial fibrillation with rapid ventricular rate 6. Hypernatermia Partially loculated, complicated parapneumonic pleural effusion: Patient initially presented with productive cough, confusion, and shortness of breath. With CT scan showing: a moderate to large partially loculated pleural effusion on CT scan. Cultures were negative. Patient was started on ceftriaxone and azithromycin. IR and pulm initially decided not to drain the effusion on 03/26/17. TTE showed EF 60-65% and RV pressure 35 mmHg. She subsequently decompensated with desaturation and fever and was transferred to the ICU on 03/28/2017. Antibiotics were upgraded to vancomycin and ceftazidine. Repeat imaging revealed that the pleural effusion was enlarged with complete opacification of left hemithorax and a new mild rightward shift of the mediastinum. On 03/29/2017, IR performed ultrasound-guided thoracocentesis draining 500 mL of fluid and inserting a Pleurx catheter with analysis revealing an exudative fluid meeting light's criteria with pleural fluid LDH to serum LDH >0.6. Exudative pleural fluid with low glucose possible etiologies include infectious causes such as TB, malignancy, rheumatoid pleurisy, empyema. Cytology showed lymphocytes, neutrophils, rare histiocytes and red blood cells but features of malignancy were not identified. TB is unlikely with mesothelial cells of > 5%. Patient has significant rheumatoid arthritis which is a possible etiology however pleural rheumatoid factor is <15.9. Patient was treated for infectious etiology covered with IV Ceftriaxone. Repeat imaging on 03/30/2017 did not show significant improvement. IR readjusted the pigtail catheter at the bedside and improved the drainage. Pleurx catheter drainage started to slow down and was removed by IR on 04/08 Atrial fibrillation with rapid ventricular rate Her rates have been elevated. She has also had some intermittent hypotension. Her rates overnight were 80-120. She is intermittently refusing diltiazem making it difficult to control her rates. Patient this morning took her diltiazem and metoprolol heart rate has decreased to < 110 bpm. Xarelto 15mg PO daily for anticoagulation, Diltiazem 30 mg every 6 hours, Metoprolol XL 25mg daily- changed to Metoprolol tartrate 12.5mg BID as patient needs it crushed Hypernatremia Patient's Na on 04/08 was 146. Patient switched to comfort measures. Will give PO hydration as tolerated by patient. Will no longer check labs. Delirium Patient's mental status continues to waxes and wane. Patient switched to comfort care. Will give morphine as needed for pain and agitation. Patient presented with creatinine 1.4. Baseline is 1.0. Likely prerenal azotemia in the setting of infection. Resolved. Constipation: -Bisacodyl and senna when necessary Placement Prognosis is poor. In the process of setting up home hospice. Patient's daughter agreeable to switching patient to hospice measures. Discontinued IV antibiotics and IV fluids. Will change patient to a regular diet to allow her to eat. Patient will likely go to [facility] for inpatient hospice. In this scenario --- considered candidate for NO Rehospitalization in future expecting futile nature of her disease and near deterioration. Complications: Worsening of clinical condition requiring hospice care Allergies: Coded Allergies: warfarin (From COUMADIN) (Severe, "THROAT CLOSED" PER FAMILY 03/24/17) Penicillins (UNKNOWN 03/24/17) amoxicillin (UNKNOWN 03/24/17) risperidone (From RISPERDAL) (UNKNOWN 03/24/17) codeine (Intermediate, DIARRHEA 03/24/17) dabigatran etexilate (From PRADAXA) (Intermediate, BLEEDING 03/24/17) enoxaparin (From LOVENOX) (Intermediate, STOMACH PAIN 03/24/17) haloperidol (From HALDOL) (Intermediate, DIARRHEA, RAPID HR 03/24/17) rivaroxaban (From XARELTO) (Intermediate, BLEEDING 03/24/17) aspirin (BLEEDING PER FAMILY 03/24/17) Significant Procedures: ECHO CONCLUSIONS Normal left ventricular systolic function with mild concentric hypertrophy. No significant Valvular abnormalities noted. Ren Madrigal M.D. CXR on 03/24/17 IMPRESSION: Dense consolidation left lung base of left basilar infiltrate or atelectasis and probable left effusion. Abdominal Xray 03/25/17 IMPRESSION: 1. No acute radiographic findings within the examined abdomen. 2. No evidence of bowel obstruction. Moderate amount of stool is present within the colon and rectum. CXR on 03/27/17 MPRESSION: [id number] left-sided pleural effusion with underlying collapse consolidation of left lower lobe and partial likely compressive atelectasis of left upper lobe of the lung. Few patchy airspace disease at right upper lung field adjacent to the mediastinum. CXR on 03/28/17 IMPRESSION: Interval enlargement of a large left pleural effusion, now with complete opacification of the left hemithorax. This results in new, mild rightward shift of mediastinum. chest CT 03/30/17 IMPRESSION: 1. Compared to 03/24/2017, this persistent mucus plugging of left lung bronchi with interval development of complete collapse of the left lung which is surrounded by a [id number] loculated appearing pleural effusion. This could represent a parapneumonic effusion. The drainage catheter is positioned within the pleural space at the base of the hemithorax. 2. Small right pleural effusion and atelectasis in posterior right lower lobe. 3. Cardiomegaly and atherosclerotic disease of coronary arteries. CXR on 03/30/17 IMPRESSION: No significant aeration of the left hemithorax. Pertinent Lab Results: as above Disposition Summary Disposition Principal Diagnosis: Partially loculated, complicated parapneumonic pleural effusion Additional Diagnosis: Atrial fibrillation with rapid ventricular rate Hypernatremia Delirium Discharge Disposition: hospice - medical facilit Discharge Instructions General Discharge Information Code Status: Comfort Care Only Patient's Diet: regular as tolerated Patient's Activity: as tolerated Follow-Up Instructions/Appts: Patient was discharged to comfort measures Medications at Discharge Discharge Medications: Continue taking these medications: Diltiazem HCl (Diltiazem 24HR ER) 180 MG CAP.ER.24H 1 Capsule ORAL DAILY Qty = 90 Rivaroxaban (Xarelto) 15 MG TABLET 1 Tablet ORAL DAILY Qty = 30 Losartan Potassium (Losartan Potassium) 25 MG TABLET 1 Tablet ORAL DAILY Qty = 90 Simvastatin (Simvastatin*) 20 MG TABLET 1 Tablet ORAL Every night Qty = 90 Metoprolol Succinate (Metoprolol Succinate) 50 MG TAB.ER.24H 1 Tablet ORAL Every Morning Qty = 90 Lorazepam (Lorazepam) 0.5 MG TABLET 1 Tablet ORAL As Directed as needed for ANXIETY Qty = 30 Copies To: Yusuf BLAKELY,Hetal Attending MD Review Statement Documenting Attending: Kaitlin BLAKELY,Mary Herrera
== END 2017-04-09 15:36 | disposition hospice, home (50) | DRG 194 ==
LOC: ERH 13:21 → 1NO 17:45 → ERHI 17:45 → CRI 17:45 → EDBEDREQ 21:39 → ENRESERV 21:43 → 1NO 22:21 → 2NA 03-27 18:26 → CRI 03-28 19:57 → 1NO 03-30 21:10 → ENTRNSPT 04-08 17:49 → EDTRNSPTSTS 04-08 17:53 → EDTRNSPT 04-08 17:53 → 2NA 04-08 18:03 → CMPTRNSPT 04-08 18:10 → 2NA 04-09 08:16
PROVIDERS: Internal Medicine; Internal Medicine Hematology & Oncology; Physician Assistant Medical; Radiology Vascular & Interventional Radiology; Student in an Organized Health Care Education/Training Program
PROC: 0W9B30Z Drainage of Left Pleural Cavity with Drainage Device, Percutaneous Approach (ICD-10-PCS; principal; 2017-03-29)
DX: J18.9 Pneumonia, unspecified organism (principal); J91.8 Pleural effusion in other conditions classified elsewhere; N17.9 Acute kidney failure, unspecified; E87.0 Hyperosmolality and hypernatremia; I50.32 Chronic diastolic (congestive) heart failure; I11.0 Hypertensive heart disease with heart failure; E11.51 Type 2 diabetes mellitus with diabetic peripheral angiopathy without gangrene; I48.91 Unspecified atrial fibrillation; E86.0 Dehydration; L89.620 Pressure ulcer of left heel, unstageable; F02.81 Dementia in other diseases classified elsewhere, unspecified severity, with behavioral disturbance; F05 Delirium due to known physiological condition; E03.9 Hypothyroidism, unspecified; G30.9 Alzheimer's disease, unspecified; Z79.84 Long term (current) use of oral hypoglycemic drugs; Z79.01 Long term (current) use of anticoagulants; M06.9 Rheumatoid arthritis, unspecified; I44.7 Left bundle-branch block, unspecified; Z86.718 Personal history of other venous thrombosis and embolism; Z86.711 Personal history of pulmonary embolism; Z51.5 Encounter for palliative care; Z66 Do not resuscitate; R01.1 Cardiac murmur, unspecified
CPT/HCPCS: 1NP; 1NSP; 2NAP; 2NASP; 87075; CCU; 36415; 71045; 74018; 81001; 82436; 86431; 87040; 87070; 87086; 87449; 87450; 87804; 87804-59; 88305; 93005; 93010; 93306; 94799; 96374; 99232; J0131; J0456; J0696; J0713; J1160; J1630; J1644; J1815; J1940; J2310; J3370; J7040; J7060

== ENCOUNTER 2017-04-09 15:52 | Inpatient (IN) | payer OTHER ==
[~2017-04-09 15:52] MED LIST changes: +ACTONEL35 M1 PO; +CALCITRIOL0.25 MC1 PO; +DAILY VALUE1 EACH PO; +DILTIAZEM 24HR180 MG PO; +FUROSEMIDE40 M1 PO; +LORAZEPAM0.5 M1 PO; +LOSARTAN POTASS25 M1 PO; +MAGNESIUM400 M1 PO; +METFORMIN HCL500 M3 PO; +METOPROLOL SUCC50 M2 PO; +MILK OF MA400 MG/52 PO; +PREDNISONE1 MG PO; +SENNA S TABLET1 EACH PO; +SIMVASTATIN20 M2 PO; +TRADJENTA5 M1 PO; +VITAMIN B-650 M2 PO; +XARELTO15 M2 PO
[2017-04-10 07:42] VITALS: BP 94/52
--- NOTE | 2017-04-10 09:50 | PN- Att Addend ---
Attending Addendum Attending Brief Note Pt seen and examined. I admitted her to inpatient hospice yesterday. She is drowsy, not very arousable. On exam pressure is 94/50, pulse rate is 117 , afebrile and breathing at 18-20, sat is 96% on 3 L. Drowsy and lethargic, mouth is very dry, lungs have decreased breath sounds bilaterally, heart is S1-S2 is regular, abdomen is soft She is an 86-year-old with multiple medical problems including diabetes, steroid dependent rheumatoid arthritis, peripheral arterial disease, chronic diastolic heart failure who was admitted with a pneumonia and a very complex loculated parapneumonic effusion. Because of her deterioration and nonresponsiveness to medical treatment, she is now admitted to inpatient hospice and is actively dying. We are pursuing medications to keep her comfortable and will follow closely.
[2017-04-11 07:01] VITALS: BP 96/57
--- NOTE | 2017-04-11 10:16 | PN- Att Addend ---
Attending Addendum Attending Brief Note Pt seen and examined. She appears comfortable now. The nurse had just given her some IV morphine. She is drowsy, not very arousable. On exam pressure is 90/50, pulse rate is 110 , afebrile and breathing at 18-20, sat is 96% on 3 L. Drowsy and lethargic, mouth is very dry, lungs have decreased breath sounds bilaterally, heart is S1-S2 is regular, abdomen is soft She is an 86-year-old with multiple medical problems including diabetes, steroid dependent rheumatoid arthritis, peripheral arterial disease, chronic diastolic heart failure who was admitted with a pneumonia and a very complex loculated parapneumonic effusion. Because of her deterioration and nonresponsiveness to medical treatment, she is now admitted to inpatient hospice and is actively dying. We are pursuing medications to keep her comfortable and will follow closely.
[2017-04-12 06:20] VITALS: BP 96/50
--- NOTE | 2017-04-14 07:40 | PN- Att Addend ---
Attending Addendum Attending Brief Note This is an abbreviated summary of pts' admission and discharge () on hospice care. Admitted to hospice 04/09/17, on 04/12/17. 86 y old female with a PMH of dementia, A. fib on Xeralto, peripheral artery disease, chronic diastolic heart failure, rheumatoid arthritis, diabetes mellitus who presented to [place] ED with her family very confused and not able to provide history. Problem List: 1. Partially loculated, complicated parapneumonic pleural effusion 2. Community-acquired pneumonia 3. Acute kidney injury 4. Delirium 5. Atrial fibrillation with rapid ventricular rate 6. Hypernatermia In view of all the medical problems and despite adequate medical treatment the delirium, the complex pneumonic effusion, the poor by mouth intake and the hypernatremia continued. After extensive family discussions, patient was admitted to hospice on 04/09/17. We kept her comfortable with morphine, Ativan, scopolamine patch. And on 04/12/2017 she . Family was notified and certificate was completed.
== END 2017-04-12 10:40 | disposition expired | DRG 951 ==
LOC: 2NA 15:52 → ENTRNSPT 04-12 14:56 → EDTRNSPT 04-12 15:04 → EDTRNSPTSTS 04-12 15:04 → CMPTRNSPT 04-12 15:48
DX: Z51.5 Encounter for palliative care (principal); J18.9 Pneumonia, unspecified organism; E11.9 Type 2 diabetes mellitus without complications; M06.9 Rheumatoid arthritis, unspecified; I50.32 Chronic diastolic (congestive) heart failure; Z66 Do not resuscitate
CPT/HCPCS: 2NAP